=== PATIENT | female | born 1960 | race Caucasian/White ===

== ENCOUNTER → 2020-04-16 08:30 | Outpatient (BNVA) | payer BC, SELFPAY | PROVIDERS: PCP Internal Medicine Medical Oncology; Visit Provider Hospitalist ==

== ENCOUNTER 2020-10-20 17:13 | Outpatient (REF) | payer BC, SELFPAY ==
--- NOTE | ~2020-10-20 | XR_ITS ---
EXAMINATION: XR KNEE, RIGHT CLINICAL INFORMATION: Right knee pain COMPARISON: None TECHNIQUE: Four views of the right knee. FINDINGS: Bones and soft tissues are normal. No fracture or joint effusion. Alignment is anatomic. Joint spaces are well maintained. No abnormal soft tissue calcification. XR/XR knee RT 4V IMPRESSION: Unremarkable right knee exam
== END 2020-10-20 17:14 | disposition home or self-care (01) ==
LOC: HO.XRAY 17:13
PROVIDERS: PCP Internal Medicine Medical Oncology; Visit Provider Internal Medicine Medical Oncology
DX: M25.561 Pain in right knee (principal)
CPT/HCPCS: 73564

== ENCOUNTER → 2020-11-18 10:31 | Outpatient (BNVA) | payer BC, SELFPAY | PROVIDERS: PCP Internal Medicine Medical Oncology; Visit Provider Hospitalist ==

== ENCOUNTER 2021-05-20 12:47 | Outpatient (REF) | payer BC, SELFPAY ==
--- NOTE | ~2021-05-20 | CT_ITS ---
EXAMINATION: CT CHEST SCREENING CLINICAL INFORMATION: Current smoker. 46 pack year history. COMPARISON: Previous chest CT September 2019 TECHNIQUE: Multidetector volumetric CT imaging of the chest is performed without contrast using low dose technique. Additional 2-D coronal and sagittal reformatted images and axial 3-D maximum intensity projection (MIP) images are generated on the CT workstation. This CT examination was performed using dose optimization techniques as appropriate, variously including the following: *Automated exposure control *Adjustment of mA and/or kV according to patient size (this includes techniques or standardized protocols for targeted exams where dose is matched to indication/reason for exam; i.e. extremities or head) *Use of iterative reconstruction technique DLP: 50 mGy-cm FINDINGS: LUNGS: There is evidence of emphysema. There is a new 5 mm heterogeneous partially ground-glass attenuation partially cystic nodule in the left upper lobe (axial image 123 series 5). There is a new small irregularly-shaped nodule or abnormal parenchymal density in the right upper lobe measuring 2 x 4 mm (axial image 144 series 5). There is a new 3 mm right upper lobe nodule (axial image 162 series 5). There is a new 3 mm left upper lobe nodule (axial image 185 series 5). There is a new heterogeneous nodule or abnormal parenchymal density in the right upper lobe partially cystic and partially ground-glass attenuation measuring 3 x 8 mm (axial image 223 series 5). There is scarring or chronic subsegmental atelectasis in the anterior segment of the left upper lobe adjacent to the interhemispheric fissure. Immediately adjacent to this is a new abnormal linear parenchymal density in the left upper lobe measuring approximately 2 x 6 mm (axial image 249 series 5). There is a new ground-glass attenuation 5 mm nodule in the left upper lobe (axial image 286 series 5). The remainder of the pulmonary nodules are stable. The largest measures 3 mm in the left lower lobe (axial image 404 series 5). There is scarring or subsegmental atelectasis in the posterior basal segment of the right lower lobe that is stable. MEDIASTINUM: There is atherosclerotic disease. The mediastinum is otherwise normal. PLEURA: There is no pleural effusion. No pleural mass or thickening. AXILLA: No lymphadenopathy. UPPER ABDOMEN: There is a 1.5 cm low-attenuation liver lesion in the lateral segment of the left lobe probably representing a cyst that is stable. There is fullness of the left adrenal gland that is stable. OSSEOUS STRUCTURES: There are degenerative changes of the spine and curvature to the left. CT/CT lung screening IMPRESSION: Emphysema. Numerous new heterogeneous bilateral upper lobe nodules. ASSESSMENT: Lung-RADS category 3: Probably Benign. RECOMMENDATION: Six-month low-dose chest CT followup recommended.
== END 2021-05-20 12:48 | disposition home or self-care (01) ==
LOC: HO.CT 12:47
PROVIDERS: PCP Internal Medicine Medical Oncology; Visit Provider Physician Assistant Medical
DX: Z12.2 Encounter for screening for malignant neoplasm of respiratory organs (principal); F17.210 Nicotine dependence, cigarettes, uncomplicated
CPT/HCPCS: 71271

== ENCOUNTER 2021-06-05 16:13 | Outpatient (REF) | payer BC, SELFPAY ==
--- NOTE | ~2021-06-05 | XR_ITS ---
EXAMINATION: XR SHOULDER, LEFT CLINICAL INFORMATION: Left shoulder pain. COMPARISON: None TECHNIQUE: AP external rotation, Grashey, scapular Y, and axillary views of the left shoulder. FINDINGS: The bones and soft tissues are normal. No fracture. Glenohumeral and acromioclavicular alignment is anatomic with normal joint space. No abnormal soft tissue calcifications. XR/XR shoulder LT min 2V IMPRESSION: Normal left shoulder.
== END 2021-06-05 16:14 | disposition home or self-care (01) ==
LOC: HO.XRAY 16:13
PROVIDERS: PCP Internal Medicine Medical Oncology; Visit Provider Internal Medicine Medical Oncology
DX: M25.512 Pain in left shoulder (principal)
CPT/HCPCS: 73030

== ENCOUNTER → 2021-07-07 10:22 | Outpatient (BNVA) | payer BC, SELFPAY | PROVIDERS: PCP Internal Medicine Medical Oncology; Visit Provider Hospitalist | DX: Z13.89 Encounter for screening for other disorder (principal) ==

== ENCOUNTER 2021-12-04 14:17 | Outpatient (REF) | payer BC, SELFPAY ==
--- NOTE | ~2021-12-04 | CT_ITS ---
EXAMINATION: CT CHEST SCREENING CLINICAL INFORMATION: Former smoker. Quit 1 year ago. 47 pack year history. COMPARISON: Previous chest CT most recent May 2021 TECHNIQUE: Multidetector volumetric CT imaging of the chest is performed without contrast using low dose technique. Additional 2D coronal and sagittal reformatted images and axial 3D maximum intensity projection (MIP) images are generated on the CT workstation. This CT examination was performed using dose optimization techniques as appropriate, variously including the following: *Automated exposure control *Adjustment of mA and/or kV according to patient size (this includes techniques or standardized protocols for targeted exams where dose is matched to indication/reason for exam; i.e. extremities or head) *Use of iterative reconstruction technique DLP: 49 mGy-cm FINDINGS: LUNGS: There is evidence of emphysema. There is a new 3 mm left lower lobe nodule axial image 394 series 8. This is probably related to bronchial soft tissue opacification. There is a new 1.1 cm right lower lobe nodule probably related to bronchial wall soft tissue opacification seen in the anterior basal segment of the right lower lobe for example axial image 320 series 6. Small pulmonary nodules are otherwise stable. Largest pulmonary nodule is a 5 mm heterogeneous left upper lobe nodule axial image 121 series 6. MEDIASTINUM: The mediastinum is normal. CORONARY ARTERY CALCIFICATION: Mild PLEURA: There is no pleural effusion. No pleural mass or thickening. AXILLA: No lymphadenopathy. UPPER ABDOMEN: Stable low-attenuation lesion in the lateral segment of the left lobe of the liver likely representing a cyst. OSSEOUS STRUCTURES: Unremarkable. CT/CT lung screen follow up IMPRESSION: Severe emphysema. New nodules in the bilateral lower lobes likely related to bronchial soft tissue opacification. Otherwise pulmonary nodules are stable. ASSESSMENT: Lung-RADS category 3: Probably benign. RECOMMENDATION: Six-month low-dose chest CT follow-up recommended
== END 2021-12-04 14:18 | disposition home or self-care (01) ==
LOC: HO.CT 14:17
PROVIDERS: PCP Internal Medicine Medical Oncology; Visit Provider Physician Assistant Medical
DX: Z12.2 Encounter for screening for malignant neoplasm of respiratory organs (principal); Z87.891 Personal history of nicotine dependence
CPT/HCPCS: 71250

== ENCOUNTER → 2021-12-18 10:51 | Outpatient (BNVA) | payer BC, SELFPAY | PROVIDERS: PCP Internal Medicine Medical Oncology; Visit Provider Surgery | DX: R91.8 Other nonspecific abnormal finding of lung field (principal); F17.210 Nicotine dependence, cigarettes, uncomplicated | CPT/HCPCS: 99202 ==

== ENCOUNTER 2022-03-11 15:21 | Outpatient (REF) | payer BC, SELFPAY ==
--- NOTE | ~2022-03-11 | CT_ITS ---
EXAMINATION: CT CHEST SCREENING CLINICAL INFORMATION: Abnormal lung findings. COMPARISON: CT chest 12/04/2021 TECHNIQUE: Multidetector volumetric CT imaging of the chest is performed without contrast using low dose technique. Additional 2D coronal and sagittal reformatted images and axial 3D maximum intensity projection (MIP) images are generated on the CT workstation. This CT examination was performed using dose optimization techniques as appropriate, variously including the following: *Automated exposure control *Adjustment of mA and/or kV according to patient size (this includes techniques or standardized protocols for targeted exams where dose is matched to indication/reason for exam; i.e. extremities or head) *Use of iterative reconstruction technique DLP: 48 mGy-cm FINDINGS: LUNGS: There is diffuse emphysematous changes of both lungs with mild right apical parenchymal scarring. There are multiple bilateral pulmonary nodules. 2 mm nodule right upper lobe axial image 119/6, 2 mm nodule left upper lobe axial image 187/6, 3 mm nodule left upper lobe axial image 207/6. Previously seen intrabronchiolar nodule on axial image 320/6 has improved in size and now measures 4 mm on axial image 333/6. A 5 matter nodule left upper lobe on axial image 126/6 is stable. There are no new pulmonary nodules seen. MEDIASTINUM: The thyroid lobes are symmetrical and normal. The central trachea and the bronchi are widely patent. The heart size and great vessels are normal caliber. No abnormal size mediastinal or hilar lymph nodes seen. No pericardial effusion seen. CORONARY ARTERY CALCIFICATION: None visualized on this study. PLEURA: There is no pleural effusion. No pleural mass or thickening. AXILLA: Small shotty lymph nodes are seen in bilateral axilla. UPPER ABDOMEN: There is a hypodense lesion, left hepatic lobe, image 56/3. Probably represents a cyst. It is unchanged from last exam. No additional lesions seen. Visualized spleen, pancreas and adrenal glands are unremarkable. OSSEOUS STRUCTURES: No aggressive lytic or sclerotic process seen. CT/CT lung screen follow up IMPRESSION: 1. Diffuse emphysema with no acute pneumonic process seen. The intrabronchial nodule in right lower lobe seen on the previous study has improved in size. 2. There are multiple bilateral pulmonary nodules which are stable. No new pulmonary nodules seen. ASSESSMENT: Lung-RADS category 2: Benign RECOMMENDATION: Low-dose annual CT chest
== END 2022-03-11 15:22 | disposition home or self-care (01) ==
LOC: HO.CT 15:21
PROVIDERS: Visit Provider Surgery
DX: R91.8 Other nonspecific abnormal finding of lung field (principal)
CPT/HCPCS: 71250

== ENCOUNTER → 2022-03-23 08:46 | Outpatient (BNVA) | payer BC, SELFPAY | PROVIDERS: PCP Internal Medicine Medical Oncology; Visit Provider Hospitalist | DX: J44.9 Chronic obstructive pulmonary disease, unspecified (principal) ==

== ENCOUNTER → 2022-03-26 10:57 | Outpatient (BNVA) | payer BC, SELFPAY | PROVIDERS: PCP Internal Medicine Medical Oncology; Visit Provider Surgery | DX: R91.8 Other nonspecific abnormal finding of lung field (principal); F17.200 Nicotine dependence, unspecified, uncomplicated; Z71.6 Tobacco abuse counseling | CPT/HCPCS: 99212 ==

== ENCOUNTER 2022-10-27 08:54 | Outpatient (REF) | payer BC, SELFPAY ==
--- NOTE | ~2022-10-27 | CT_ITS ---
EXAMINATION: CT LUNG SCREENING FOLLOW-UP CLINICAL INFORMATION: Pulmonary nodules. Other nonspecific abnormal finding of lung field. COMPARISON: Low dose chest CT exams, including 10/01/2019 and 03/11/2022. TECHNIQUE: Multidetector volumetric noncontrast CT imaging of the chest was obtained using low dose screening CT technique. Axial thin section reformations in soft tissue and lung windows were obtained. Sagittal and coronal reformatted images were obtained. Axial images were created and reviewed. This CT examination was performed using dose optimization techniques as appropriate, variously including the following: *Automated exposure control *Adjustment of mA and/or kV according to patient size (this includes techniques or standardized protocols for targeted exams where dose is matched to indication/reason for exam; i.e. extremities or head) *Use of iterative reconstruction technique TOTAL EXAM DLP: 45 mGy-cm. CTDIvol: 1.28 mGy. FINDINGS: LUNGS: [id number]-[id number] pulmonary emphysema. Bronchial higgins are diffusely thickened. Again noted are a few nodular opacities, including 0.3 cm noncalcified foci in the anterolateral right upper lobe (159, series 5), anteromedial left upper lobe (240, series 5) and lateral left upper lobe (168, series 5). A few small foci of residual endobronchial mucus are present within the right lower lobe. A small irregular subsolid opacity in the left upper lobe of approximately 0.5 cm size is unchanged (104, series 5). No enlarging lung nodule. No new nodule, mass or pleural effusion. LYMPHATIC STRUCTURES: No pathologic sized mediastinal, hilar or axillary lymph nodes. THYROID GLAND: Unremarkable to the extent seen. CARDIOVASCULAR STRUCTURES: The heart size is normal. No pericardial effusion. Thoracic aorta atherosclerosis without aneurysm. Pulmonary arteries are normal in size. CORONARY ARTERY CALCIFICATION: Mild calcification of the proximal left anterior descending coronary artery is present. MEDIASTINUM: The esophagus is unremarkable. No mediastinal mass. UPPER ABDOMEN: 2.1 cm cyst in the left lobe of the liver has a simple appearance. OSSEOUS STRUCTURES: Bones are diffusely osteopenic. Mild spondylosis of the thoracic spine. No acute or suspicious osseous abnormality. CT/CT lung screen follow up IMPRESSION: * Pulmonary emphysema has an upper lobe predominance and bronchial higgins are chronically mildly thickened. * No interval development of a suspicious nodule, mass or lymphadenopathy. Lung-RADS CATEGORY Lung RADS category: 2. Benign appearance or behavior. Nodules with a very low likelihood of becoming a clinically active cancer due to size or lack of growth. Continue annual screening with low-dose CT in 12 months. Probability of malignancy less than 1%. INCIDENTAL FINDINGS (S CATEGORY): No new or unexpected/actionable findings in this category. RECOMMENDATION: If the patient remains in a screening program, obtain low dose chest CT follow up in 12 months. The USPSTF recommends annual screening for lung cancer using low-dose CT in adults aged 50 - 80 years who have at least a 20 pack-year smoking history and currently smoke or have quit smoking within the past 15 years.
== END 2022-10-27 08:55 | disposition home or self-care (01) ==
LOC: HO.CT 08:54
PROVIDERS: PCP Internal Medicine Medical Oncology; Visit Provider Surgery
DX: R91.8 Other nonspecific abnormal finding of lung field (principal)
CPT/HCPCS: 71250

== ENCOUNTER 2022-11-05 09:30 | Outpatient (AMB) | payer BC, SELFPAY ==
--- NOTE | 2022-11-05 09:33 | MHC.OFFVIS ---
Intake Vital Signs 11/05/22 09:42 Height 5 ft 4 in Weight 173 lb BMI 29.7 BP 110/70 Blood Pressure Location Lt brachial Position Sitting Pulse 78 Pulse Oximetry (%) 93 Intake Visit Reasons: 6 month follow up LDCT Allergies meperidine [From DEMEROL] Adverse Reaction (Intermediate, Verified 03/26/22 11:27) NAUSEA & VOMITING Demerol Allergy (Unknown, Uncoded 03/26/22 11:27) vomiting Medication List - Last Reconciled 11/05/22 by Rhys Alarcon MD albuterol sulfate 90 mcg/actuation 2 puffs inhalation Q4H PRN 30 days bupropion HCl 150 mg (2 x 75 mg) PO BID 30 days flu vac [id number] 36mos up(PF) mL IM ivbjlvhmttb-xawvkyqrn-gusqyypt 200-62.5-25 mcg (Trelegy Ellipta) 1 inh inhalation DAILY 30 days ipratropium-albuterol 0.5 mg-3 mg(2.5 mg base)/3 mL 3 mL inhalation QID 30 days nebulizers As directed varenicline (Chantix Starting Month Box) PO PER PKG DIR HPI 6 month follow up LDCT HPI Details 62-year-old woman long-time and current smoker who started age 14 smoked half pack per day since then part of the lung cancer screening program who had her 1st low-dose CT scan of the chest done in May of 2021 at which time she was a lung rads 3 and had a six-month follow-up CT scan done on 12/04/2021.? This CT scan actually shows the stability of the small nodule previously mentioned but a new 1.1 cm ground-glass right lower lobe basilar nodule associated with some airway thickening.? This certainly has a more inflammatory appearance to it.? There is no mediastinal lymphadenopathy and no pleural fluid.? Repeat CT scan of the chest also reviewed interpreted by me directly done on 03/11/2022 shows decrease in the right lower lobe endobronchial nodule and otherwise stability throughout. Finally repeat CT scan of the chest done on 10/27/2022 shows no new nodules, growing nodules, lymphadenopathy or pleural fluid. She reports feeling generally in good health denies unintentional weight loss decreased appetite fevers chills or soaking sweats.? She denies chest pain, shortness of breath, cough, or hemoptysis.? She denies any new neurologic symptoms.? She is still smoking and we spent 9 minutes discussing smoking cessation and she is currently going to try the patch but we also discussed using the gum or lozenges and weaning herself off of cigarettes more slowly. ? ?She did try Chantix in the interim since last last saw her but that did not agree with her. Today all teletypewriter installer for the patch and she tells me that her and her quit date is tomorrow. [facility] Medical History COPD (chronic obstructive pulmonary disease) Nicotine dependence, cigarettes, uncomplicated Pulmonary nodules Social History Patient Tobacco Use Status: Current everyday Tobacco user Cigarette Packs Per Day: 1 Cigarettes Per Day: 1 Years Smoked: 45 years Physical Exam Vital Signs: Last Vital Signs Pulse 78 11/05/22 09:42 BP 110/70 11/05/22 09:42 Pulse Ox 93 11/05/22 09:42 BMI result Body Mass Index 29.7 General: No acute distress HEENT: Moist mucous membranes, normocephalic, pupils equal round and reactive to light. Neck: No thyromegaly, supple, no JVD Lymph: No cervical, supraclavicular, or other lymphadenopathy Chest: No chest wall abnormalities or deformities Heart: Regular rate and rhythm Lungs: Clear to auscultation bilaterally Abdomen: Soft, nontender, normal bowel sounds Extremities: No edema, cyanosis, or clubbing. Full range of motion Neuro: Grossly intact, alert and oriented x3, and nonfocal Skin: Warm and dry no rashes Affect: Normal Assessment & Plan Assessment & Plan (1) Pulmonary nodules: Code(s): R91.8 - Other nonspecific abnormal finding of lung field Plan: I went over the CT scan with her in detail which he seemed understand. We also again discussed pulmonary nodules and how their size, shape, and exchange specialist time affect her level of suspicion for malignancy. I did not see any worrisome nodules currently. With that in mind, will plan on doing an annual screening CT and she will need a visit with me after that unless there are some new changes. All questions were answered. (2) Nicotine dependence, cigarettes, uncomplicated: Comment: (current smoker - onset 14yo, 1/2ppd x 48yrs - 24PYH) Code(s): F17.210 - Nicotine dependence, cigarettes, uncomplicated Plan: Up prescribing the patch and smoking cessation 9 minutes as above. Orders: Orders CT lung screening 11 Months F17.210 - Nicotine dependence, cigarettes, uncomplicated Medications: New nicotine 1 patch transdermal DAILY 28 ea 0RF F17.210 - Nicotine dependence, cigarettes, uncomplicated Quality Reporting (2019) Adult ([facility] 138/05/05/68) Smoking risk assessment performed?: Yes Patient Tobacco Use Status: Current everyday Tobacco user Coding Level of Care Code Est Pt Level 4 (79411) Diagnoses Pulmonary nodules R91.8 Nicotine dependence, cigarettes, uncomplicated F17.210 Time Spent (min) 35 Comment Smoking cessation 9 minutes please bill
[2022-11-05 09:42] VITALS: BP 110/70; PULSE 78; O2SAT 93; BMI 29.7
== END 2022-11-05 09:51 | disposition home or self-care (01) ==
PROVIDERS: PCP Internal Medicine Medical Oncology; Visit Provider Surgery
DX: R91.8 Other nonspecific abnormal finding of lung field (principal); F17.210 Nicotine dependence, cigarettes, uncomplicated

== ENCOUNTER → 2022-11-05 09:30 | Outpatient (BNVA) | payer BC, SELFPAY | PROVIDERS: PCP Internal Medicine Medical Oncology; Visit Provider Surgery | DX: R91.8 Other nonspecific abnormal finding of lung field (principal); F17.210 Nicotine dependence, cigarettes, uncomplicated | CPT/HCPCS: 99212 ==

== ENCOUNTER 2022-11-27 08:13 | Outpatient (REF) | payer BC, SELFPAY | END 2022-11-27 08:14 | disposition home or self-care (01) | LOC: HO.MAMMO 08:13 | PROVIDERS: PCP Internal Medicine Medical Oncology; Visit Provider Internal Medicine Medical Oncology | DX: Z12.31 Encounter for screening mammogram for malignant neoplasm of breast (principal) | CPT/HCPCS: 77063; 77067 ==

== ENCOUNTER → 2022-11-27 08:30 | Outpatient (BNV) | payer BC, SELFPAY | PROVIDERS: PCP Internal Medicine Medical Oncology; Visit Provider Radiology Diagnostic Radiology | DX: Z12.31 Encounter for screening mammogram for malignant neoplasm of breast (principal) | CPT/HCPCS: 77063; 77067 ==

== ENCOUNTER 2022-11-29 08:20 | Outpatient (AMB) | payer BC, SELFPAY ==
[2022-11-29 08:25] VITALS: BP 91/64; PULSE 85; BMI 27.6
--- NOTE | 2022-11-29 08:25 | A.OFFVIS_ITS ---
Intake Vital Signs 11/29/22 08:25 Height 5 ft 4 in Weight 160 lb 14.999 oz BMI 27.6 BP 91/64 Blood Pressure Location Lt brachial Position Sitting Pulse 85 Intake Visit Reasons: screening colo Intake Note: Mendy presents in office as a new.patient for a colonoscopy screening PT CC: pt reports having no concerns , 1st colo pt denies any other GI Issues Registered Midwife Required: No Accompanied by: Spouse Allergies meperidine [From DEMEROL] Adverse Reaction (Intermediate, Verified 11/29/22 08:26) NAUSEA & VOMITING Demerol Allergy (Unknown, Uncoded 11/29/22 08:26) vomiting HPI screening colo HPI Details 62 year old? female here today for pre c olonoscopy screening.? Patient was sent to us by her PCP.? This is her first colonoscopy screening.? Patient denies any gastrointestinal symptoms in the past or at present.? Denies any personal or family history of gastrointestinal disease, colon polyps, or cancer.? Denies history of difficulty with sedation or anesthesia in the past.? Negative for history of sleep apnea.? Denies any history of cardiac, renal or hepatic disease.?? Occasional shortness of breath, history of COPD patient will need a clearance from her jack tamp operator. No history of infectious? diseases like hepatitis A, B, C, HIV or tuberculosis.? Patient is not on any anticoagulation therapy. [facility] Medical History Nicotine dependence, cigarettes, uncomplicated Pulmonary nodules COPD (chronic obstructive pulmonary disease) Social History Patient Tobacco Use Status: Current everyday Tobacco user Cigarette Packs Per Day: 1 Cigarettes Per Day: 1 Years Smoked: 45 years Review of Systems Const Denies weight gain and Denies weight loss ENT Reports no additional complaints, Denies dysphagia and Denies odynophagia Card Reports no additional complaints Resp Reports no additional complaints GI Denies abdominal pain, Denies belching, Denies melena, Denies bloating, Denies change in bowel habits, Denies dysphagia, Denies excessive flatus, Denies dyspepsia, Denies heartburn, Denies diarrhea, Denies loose stools, Denies nausea, Denies odynophagia and Denies vomiting Musc Reports no additional complaints Neuro Reports no additional complaints Psych Reports no additional complaints Endo Reports no additional complaints Physical Exam Vital Signs: Last Vital Signs Pulse 85 11/29/22 08:25 BP 91/64 11/29/22 08:25 BMI result Body Mass Index 27.6 Const General: healthy appearing, no acute distress and well developed Nutritional Appearance: well nourished Orientation/consciousness: patient oriented x3 HEENT Head: Yes normal to inspection, Yes normocephalic and Yes atraumatic Face and sinus: Yes normal facial exam Mouth: Normal oral and palatal mucosa present Throat: Yes posterior oropharynx normal, Yes tonsils normal and Yes uvula midline Eyes General: appearance normal, both eyes and all related structures Neck Neck: Yes normal visual inspection, Yes full ROM and Yes trachea midline Thyroid: Thyroid normal Resp Effort & Inspection: normal respiratory effort, able to speak in complete sentences, no tracheal deviation and symmetric chest movement Auscultation: clear to auscultation bilaterally Cardio Rate: regular rate Heart sounds: S1 normal heart sound present and S2 normal heart sound present GI Inspection: Yes normal to inspection and No distended Palpation (GI): Soft to palpation, not firm, nontender and No hepatosplenomegaly present Auscultation: normal bowel sounds General: Yes no CVA tenderness Back/Spine/Pelvis Back: no CVA tenderness Skin General skin exam: elasticity normal, turgor normal and dry skin Neuro General: patient oriented x3 Psych Appearance: grossly normal Mental Status: mental status grossly normal Speech and movement: Normal speech and movement present Assessment & Plan Assessment & Plan (1) Screen for colon cancer: Code(s): Z12.11 - Encounter for screening for malignant neoplasm of colon Plan: Patient denies any GI, cardiac symptoms.? Patient does have a history of COPD see pulmonology will ask for clearance before the procedure. Denies any issues with anesthesia in the past.? Denies any history of sleep apnea.? No history infectious diseases in the past or present.? Not on any anticoagulation therapy.? No family or personal history of colon cancer or polyps.? Patient denies melena, hematochezia, unintentional weight loss or ribbon like stools.? Discussed at length the pre-procedure,? prep, diet & medications as well as what to expect prior, during and after the procedure.?? Stressed the importance of good bowel prep. ?Recommended the use of Vaseline or Calmoseptine OTC & baby wipes with bowel movements to promote comfort.? ?Patient verbalizes understanding and agrees to plan of care.? She was given the opportunity to ask questions and all questions answered.? We will see her after the procedure.? Medications: New bisacodyl (Dulcolax (bisacodyl)) take 2 tabs at noon the day before your colonoscopy 10 mg (2 x 5 mg) PO ONCE 1 day 2 tabs 0RF Z12.11 - Encounter for screening for malignant neoplasm of colon polyethylene glycol 3350 (Miralax) As directed by gastroenterology department at [facility] 238 grams PO ONCE 238 grams 0RF Z12.11 - Encounter for screening for malignant neoplasm of colon Quality Reporting (2019) Adult ([facility] 138/05/05/68) Smoking risk assessment performed?: Yes Patient Tobacco Use Status: Current everyday Tobacco user Coding Level of Care Code New Pt Level 3 (38944) Diagnoses Screen for colon cancer Z12.11 Time Spent (min) 40 Comment 30 minutes spent with patient and additional 10 minutes spent reviewing her records
== END 2022-11-29 09:43 | disposition home or self-care (01) ==
PROVIDERS: PCP Internal Medicine Medical Oncology; Visit Provider Nurse Practitioner Family
DX: Z12.11 Encounter for screening for malignant neoplasm of colon (principal); Z01.818 Encounter for other preprocedural examination
CPT/HCPCS: S0285

== ENCOUNTER → 2022-11-29 08:20 | Outpatient (BNVA) | payer BC, SELFPAY | PROVIDERS: PCP Internal Medicine Medical Oncology; Visit Provider Nurse Practitioner Family ==

== ENCOUNTER 2022-12-21 08:22 | Outpatient (AMB) | payer BC, SELFPAY ==
--- NOTE | 2022-12-21 08:40 | MHC.OFFVIS ---
Intake Vital Signs 12/21/22 08:42 Height 5 ft 4 in Weight 160 lb 14.999 oz BMI 27.6 BP 118/70 Blood Pressure Location Rt brachial Position Sitting Pulse 83 Pulse Source Pulse Oximeter Pulse Oximetry (%) 93 Oxygen Delivery Method Room Air Intake Visit Reasons: COPD Public Message Service Supervisor Required: No Allergies meperidine [From DEMEROL] Adverse Reaction (Intermediate, Verified 12/21/22 08:45) NAUSEA & VOMITING Demerol Allergy (Unknown, Uncoded 12/21/22 08:45) vomiting HPI HPI Comments History of Present Illness Details The patient is a 62-year-old woman known COPD in addition to tobacco dependency. He was evaluated last year by Pulmonary and she had been placed on the lung cancer screening program. There she had a CT scan of the chest back at [facility] in September 29, 2018 demonstrating multiple pulmonary nodules 1 measuring 5 mm in size and spiculated in nature. In addition to that she had extensive emphysema. She continues to smoke cigarettes unfortunately 1 pack a day. She continues use her inhalers with partial improving her symptoms. She does complaint of dyspnea on exertion even with minimal activity. Denies any significant mucus production. Denies any significant congestion. She states that has been smoking and also her others children smoke. We talked about the importance of smoking cessation. She is motivating wants to quit. I did provide her with a letter to provide her family. She is trying to cut down on her smoking with the nicotine patch Wellbutrin. She is down to 2 cigarettes a day which is very good for her. She is going to strive to quit completely. In the meantime she did have her low-dose CT scan with stable pulmonary nodules and moderate degree of emphysema. She also had PFTs demonstrating severe COPD and severe diffusion impairment. The patient is trying to stay active. 07/07/2021 the patient is here for a pulmonary follow-up visit. Still having hard time with her breathing. She has been using Trelegy 100. unfortunately after she developed COVID back in the beginning of the year her breathing has not been the same. She did have significant coughing and chest tightness during the COVID infection and also afterwards. Therefore, she did have an old nebulizer she has been using it regularly. Sometimes up to twice a day. She does get a good amount of relief from the therapy. She did have a recent CT scan of the chest to the lung cancer screening program which we personally reviewed. It appears that she has pulmonary nodules and some new ones. Also has some ground-glass nodular changes. Unfortunately this CT scan was done after the fact that she developed COVID. Some of the changes specially at the bases may be due to the residual COVID infection. I am hopeful that in 6 months those changes have improved. In the meantime she does continue smoking. She has extensive emphysema and significant bronchiectatic airways and bronchitis. Explained to the patient that her situation is pretty advanced and she needs to quit smoking before gets worse. Ultimately she may end of oxygen. The patient will talk to her to see if they can come up with a quit date in the meantime she does have nicotine patches at home. Will go ahead and try to maximize her respiratory therapy by increasing her Trelegy to 200 the patient will also start a low-dose prednisone taper. She may also be a good candidate for Daliresp. Will continue to assess her progress. 09/16/2021 the patient is here for a pulmonary follow-up visit. Overall she is feeling better. She responded well to the Trelegy. Six months ago she did require prednisone reconsider Daliresp. But at this point she is doing better. She had a hard time with regular albuterol she did better with DuoNeb. I will send a prescription to the pharmacy. The patient did have a CT scan of the chest to the lung cancer screening program. Appears to have multiple nodular densities some subsolid nature. She is scheduled to have a CT scan again in the fall 2021. At this moment she is still working on the smoking. She is tolerating the Wellbutrin and she has a 14 mg nicotine patch. She is cutting down significantly. She still having hard time however. I did advise her to increase exercise activity at this time. Will hold off on Daliresp right now although she starts noticing increased congestion and difficulty breathing may be a good option. The patient also will increase her daily exercise. 03/23/2022 the patient is here for a pulmonary follow-up visit. Overall the patient is doing well. She continues use the Trelegy inhaler with good effect. Still having a cough which is congested in nature. Typical of her smoker's cough. Cxsy-mz-zstaxgjb severity. Also complains of shortness of breath with activity. Mild in severity. She did have a recent CT scan of the chest which is reassuring. She is going to continue with the lung cancer screening program at this time. In addition to that she needs to quit smoking. She tried Wellbutrin and also that nicotine patch without any improvement with her tobacco cessation. Therefore, I will have her we would try her Chantix. In the past she did try and have GI symptoms. This time she is going to start the Chantix but be smoking less to minimize on the adverse effects of the smoking related negative feedback. 12/21/2022 the patient is here for a pulmonary follow-up visit. She is complaining of productive cough. Moderate severity. Trelegy is been helping. She has also been taking Mucinex twice a day. The patient finds helpful. Her mucus is pale in color. The patient is wondering if there is any other medication she can take. She did have a CT scan of the chest in October 2022 demonstrating stable pulmonary nodules. She is now rads 2. She should get a CT scan now in a year's time. In addition to that the patient is looking to quit smoking. She is not completely ready. I did give her a prescription for Chantix the last visit but she has not started as of yet. I did encourage her to start even if she is not ready at this time. The patient will try some ice in 4 months. If the patient feels better she can stop it. Otherwise she can also consider going on Daliresp or longer bout of azithromycin if it was effective. 12/21/2022 the patient is here for a pulmonary follow-up visit. Overall the patient is doing well. She still complaining of productive cough. She has been on the Trelegy inhaler that is been affected. Will try her on macrolide therapy for a month and see if she benefits. Otherwise she will be a good candidate for Daliresp. The patient is aware that he does have GI side effects. Unfortunately she is still smoking. She has not started the Chantix as of yet. She is waiting for her to be completely ready. Explained to her that with Chantix she does have to wait to be completely ready to quit and she can not smoke while on Chantix with the hope that she starts disliking in having a negative feedback effect from the smoking while in Chantix. She is going to consider starting at this time. She is also participating in the lung cancer screening program. Last CT scan October 2022 was still reassuring. Therefore she will get a repeat CT scan in a year's time. Will follow-up in 6 months. [facility] Medical History Nicotine dependence, cigarettes, uncomplicated Pulmonary nodules COPD (chronic obstructive pulmonary disease) Social History Patient Tobacco Use Status: Current everyday Tobacco user Cigarette Packs Per Day: 1 Cigarettes Per Day: 1 Years Smoked: 45 years Review of Systems Const Denies fever(s) and Denies night sweats ENT Denies change in voice, Denies lip swelling, Denies mouth pain, Denies nasal congestion, Denies nasal discharge and Denies tongue swelling Card Denies chest pain and Reports dyspnea on exertion Resp Reports chest congestion, Reports cough, Reports dyspnea on exertion and Reports wheezing GI Denies abdominal pain Musc Denies no additional complaints Skin/Breast Denies rash Neuro Denies Neuro-related abnormal movements Psych Denies no additional complaints Khadar/Lymph Denies easy bleeding and Denies lymphadenopathy Aller/Immun Denies lip swelling, Denies tongue swelling and Reports wheezing Physical Exam Vital Signs: Last Vital Signs Pulse 83 12/21/22 08:42 BP 118/70 12/21/22 08:42 Pulse Ox 93 12/21/22 08:42 Oxygen Delivery Method Room Air 12/21/22 08:42 BMI result Body Mass Index 27.6 Const General: alert HEENT General nose exam: Abnormal external nose present and Nasal discharge present Eyes Pupils: Equal, round and reactive pupils present Neck Neck: Yes normal visual inspection, Yes full ROM and Yes no lymphadenopathy Chest Chest palpation & inspection: normal inspection of the chest Resp Auscultation: no wheezes and diminished lung sounds Cardio Rate: regular rate Rhythm: regular rhythm Heart sounds: S1 normal heart sound present and S2 normal heart sound present GI Palpation (GI): Soft to palpation and nontender Auscultation: normal bowel sounds General: Yes no CVA tenderness Back/Spine/Pelvis Back: no CVA tenderness Skin General skin exam: rashes and/or lesions noted Neuro Cranial nerves: Yes Equal, round and reactive pupils present Assessment & Plan Assessment & Plan (1) COPD (chronic obstructive pulmonary disease): Code(s): J44.9 - Chronic obstructive pulmonary disease, unspecified Qualifiers: COPD type: chronic bronchitis Chronic bronchitis type: simple Qualified Code(s): J41.0 - Simple chronic bronchitis (2) Pulmonary nodules: Code(s): R91.8 - Other nonspecific abnormal finding of lung field (3) Tobacco dependence: Comment: (current smoker, 1ppd) Code(s): F17.200 - Nicotine dependence, unspecified, uncomplicated Plan continue Trelegy 200 Nebulizer twice a day, sent Duoneb stopped Nicotene patch/weelbutrin consider starting chantix CT chest LDCT, RADS 2 start Azithromycin MWF x 1 month consider Daliresp F/U 6 months Medications: New azithromycin Take 1 tablet on Tuesday/Tuesday/Tuesday 250 mg PO 3XW 28 days 12 tabs 0RF K21.9 - Gastro-esophageal reflux disease without esophagitis Discontinued bupropion HCl Discontinued Reason: Doctor's Order 150 mg (2 x 75 mg) PO BID 30 days 120 tabs 11RF Quality Reporting (2019) Adult ([facility] 138/05/05/68) Smoking risk assessment performed?: Yes Patient Tobacco Use Status: Current everyday Tobacco user Coding Level of Care Code Est Pt Level 4 (70322) Diagnoses Simple chronic bronchitis J41.0 COPD type: chronic bronchitis Chronic bronchitis type: simple Pulmonary nodules R91.8 Tobacco dependence F17.200 Time Spent (min) 16
[2022-12-21 08:42] VITALS: BP 118/70; PULSE 83; O2SAT 93; BMI 27.6
== END 2022-12-21 09:09 | disposition home or self-care (01) ==
PROVIDERS: PCP Internal Medicine Medical Oncology; Visit Provider Hospitalist
DX: J41.0 Simple chronic bronchitis (principal); R91.8 Other nonspecific abnormal finding of lung field; F17.200 Nicotine dependence, unspecified, uncomplicated
CPT/HCPCS: 99214

== ENCOUNTER → 2022-12-21 08:22 | Outpatient (BNVA) | payer BC, SELFPAY | PROVIDERS: PCP Internal Medicine Medical Oncology; Visit Provider Hospitalist ==

== ENCOUNTER 2023-03-16 14:19 | Outpatient (REF) | payer BC, SELFPAY ==
--- NOTE | ~2023-03-16 | XR_ITS ---
EXAMINATION: XR CHEST CLINICAL INFORMATION: Cough. COMPARISON: CT chest of 10/27/2022. Chest radiographs of 04/18/2019. TECHNIQUE: 2 views of the chest were obtained. FINDINGS: Lungs are hyperinflated with pjvwnelz-hd-hqirnm emphysematous changes. Heart size is normal. Bilateral peribronchial thickening redemonstrated. Mild degenerative changes in the thoracic spine. Nodular density overlying the lower lateral right lung likely represents a nipple shadow and this could be confirmed by repeat views after placement of nipple markers. XR/XR chest 2V IMPRESSION: Dykrhskm-yr-znsyen emphysematous changes redemonstrated. Nodular density overlying the lower lateral right lung likely represents a nipple shadow and this could be confirmed by repeat views after placement of nipple markers.
== END 2023-03-16 14:20 | disposition home or self-care (01) ==
LOC: HO.XRAY 14:19
PROVIDERS: PCP Internal Medicine Medical Oncology; Visit Provider Nurse Practitioner Family
DX: J41.0 Simple chronic bronchitis (principal); R91.8 Other nonspecific abnormal finding of lung field; F17.200 Nicotine dependence, unspecified, uncomplicated; Z71.6 Tobacco abuse counseling
CPT/HCPCS: 71046; 94640

== ENCOUNTER 2023-03-16 14:19 | Outpatient (AMB) | payer BC, SELFPAY ==
--- NOTE | 2023-03-16 14:23 | MHC.OFFVIS ---
Intake Vital Signs 03/16/23 14:24 Height 5 ft 4 in Weight 158 lb BMI 27.1 BP 108/68 Blood Pressure Location Rt brachial Position Sitting Pulse 105 H Pulse Source Pulse Oximeter Pulse Oximetry (%) 94 Oxygen Delivery Method Room Air Intake Visit Reasons: Cough/Phlegm x 3weeks Community Arts Officer Required: No Antique Dealer: Antique Dealer offered & declined Accompanied by: Self / Same As Patient Allergies meperidine [From DEMEROL] Adverse Reaction (Intermediate, Verified 03/16/23 14:28) NAUSEA & VOMITING Demerol Allergy (Unknown, Uncoded 03/16/23 14:28) vomiting Medication List - Last Reconciled 03/16/23 by Lucille Montiel LPN albuterol sulfate 90 mcg/actuation 2 puffs inhalation Q4H PRN 30 days flu vac [id number] 36mos up(PF) mL IM onnylmhxmxr-lszzqnqoj-uvlbbnfz 200-62.5-25 mcg (Trelegy Ellipta) 1 inh inhalation DAILY 30 days ipratropium-albuterol 0.5 mg-3 mg(2.5 mg base)/3 mL 3 mL inhalation QID 30 days nebulizers As directed nicotine 1 patch transdermal DAILY HPI Cough/Phlegm x 3weeks HPI Details Mendy is a pleasant 62 year old female, current 1ppd smoker with a 45 pack year history, followed for COPD and pulmonary nodules. At baseline she is moderately controlled on Trelegy, albuterol MDI and duoneb. Today she presents for an acute visit. She reports a three week history of productive cough, dyspnea, wheezing and chest congestion. Her PCP presribed a zpak and prednisone with minimal improvements. She does report her sputum is now yellow in color, improved from green but continues with persistent cough and dyspnea with minimal exertion. She denies fever, chills or sick contacts. [facility] Medical History Nicotine dependence, cigarettes, uncomplicated Pulmonary nodules COPD (chronic obstructive pulmonary disease) Social History (Updated 03/16/23 @ 14:30 by Lucille Montiel LPN) Patient Tobacco Use Status: Current everyday Tobacco user Cigarette Packs Per Day: 1 Cigarettes Per Day: 1 Years Smoked: 45 years Smoked in Last 30 Days: Yes Review of Systems Const Denies chills, Denies excessive sweating, Denies fever(s), Denies headache(s) and Denies night sweats Eyes Denies dry eyes, Denies irritation and Denies itchy eyes ENT Reports Normal hearing present, Denies headache(s), Denies nasal congestion, Denies nasal discharge, Denies post nasal drip and Denies sore throat Card Denies chest pain, Denies chest pain at rest, Denies chest pain with activity, Denies claudication, Denies leg edema, Denies orthopnea and Denies paroxysmal nocturnal dyspnea Resp Denies excessive phlegm production, Denies pain on inspiration, Denies pain with cough and Denies stridor Musc Denies myalgias Neuro Reports Normal hearing present and Denies headache(s) Endo Denies excessive sweating Khadar/Lymph Denies lymphadenopathy Aller/Immun Denies itchy eyes and Denies seasonal rhinorrhea Physical Exam Vital Signs: Last Vital Signs Pulse 105 H 03/16/23 14:24 BP 108/68 03/16/23 14:24 Pulse Ox 94 03/16/23 14:24 Oxygen Delivery Method Room Air 03/16/23 14:24 BMI result Body Mass Index 27.1 Const General: cooperative, healthy appearing, comfortable, no acute distress, well developed and alert Orientation/consciousness: patient oriented x3 Limitations: no limitations HEENT Head: Yes normal to inspection, Yes normocephalic and Yes atraumatic Ears: hearing grossly normal bilaterally and external ears normal Eyes General: appearance normal, both eyes and all related structures Eyelids: Yes eyelids normal Sclerae: sclerae normal EOM: EOMs intact bilaterally Neck Neck: Yes normal visual inspection and Yes no lymphadenopathy Lymphatic: no lymphadenopathy noted Chest Chest palpation & inspection: normal inspection of the chest Resp Other: faint expiratory wheezing throughout with diminished lung sounds and crackles bilateral bases, mildly improved with duoneb Effort & Inspection: normal respiratory effort, no audible wheezes, no stridor, not tachypneic, no tripod positioning and no use of accessory muscles Cardio Jugular venous distension: no JVD Rate: regular rate Rhythm: regular rhythm Skin Other: warm, dry General skin exam: no rashes or lesions noted Neuro General: patient oriented x3 Cranial nerves: Yes Normal hearing present Cognition (Neuro): normal cognition Gait exam (Neuro): Normal gait present Extrem General: Yes normal to inspection, Yes capillary refill normal, Yes no clubbing, cyanosis or edema and Yes no pedal edema Psych Appearance: grossly normal and well kempt Speech and movement: Normal speech and movement present and Clear speech present Affect: normal affect Attitude: cooperative Thought process: Normal thought process present Thought content: Normal thought content present Insight: Good insight present (Psych) Judgement: Good judgement present (Psych) Office Procedures Nebulizer Treatment Nebulizer Treatment [id number] RX initial, or Nebulizer Subsequent Treatment Office Meds ipratropium 0.5 mg-albuterol 3 mg (2.5 mg base)/3 mL nebulization soln Performing Provider: Felecia Stanton NP [place] [facility] [place] [facility] Administered by: Lucille Montiel LPN on 03/16/23 14:49 Dose Route Admin Location Dispensed Lot Number Expiration Date [facility] Admissions Counselor 3 mL inhalation 3 mL [id number] 12/11/24 [id number] [employer] Assessment & Plan Assessment & Plan (1) COPD (chronic obstructive pulmonary disease): Code(s): J44.9 - Chronic obstructive pulmonary disease, unspecified Qualifiers: COPD type: chronic bronchitis Chronic bronchitis type: simple Qualified Code(s): J41.0 - Simple chronic bronchitis (2) Pulmonary nodules: Code(s): R91.8 - Other nonspecific abnormal finding of lung field (3) Tobacco dependence: Comment: (current smoker, 1ppd) Code(s): F17.200 - Nicotine dependence, unspecified, uncomplicated Plan Will treat bronchitic symptoms with doxycycline. Mild improvement after duoneb, continued wheezing and bibasilar crackles appreciated. Will send for CXR and send prednisone for continued wheezing. Patient is aware if symptoms do not improve to call office and if worsen, seek emergent care. Will follow up with Dr. Tejada for regularly scheduled appointment or sooner if needed. All questions were answered and patient is in agreement of plan. Orders: Orders XR chest 2V Today R05.9 - Cough, unspecified AMB Nebulizer Treatment Today J44.9 - Chronic obstructive pulmonary disease, unspecified, R05.9 - Cough, unspecified Medications: New albuterol sulfate 90 mcg/actuation 2 puffs inhalation Q4-6H PRN 1 ea 3RF shortness of breath or wheezing prednisone Take 4 pills daily for 5 days, then go down by 1 pill every 5 days; 20 days 50 tabs 0RF 10 mg PO DIRECTED 50 tabs 0RF doxycycline hyclate 100 mg PO BID 20 caps 0RF Quality Reporting (2019) Adult ([facility] 13805/05/68) Smoking risk assessment performed?: Yes Patient Tobacco Use Status: Current everyday Tobacco user Coding Level of Care Code Est Pt Level 4 (34101) Diagnoses Simple chronic bronchitis J41.0 COPD type: chronic bronchitis Chronic bronchitis type: simple Pulmonary nodules R91.8 Tobacco dependence F17.200 CPT Codes Nebulizer Treatment - Nebulizer Treatment, initial or subsequent: [id number]/[id number] RX initial, or Nebulizer Subsequent Treatment ([id number])
[2023-03-16 14:24] VITALS: BP 108/68; PULSE 105; O2SAT 94; BMI 27.1
== END 2023-03-16 14:58 | disposition home or self-care (01) ==
PROVIDERS: PCP Internal Medicine Medical Oncology; Visit Provider Nurse Practitioner Family
DX: J41.0 Simple chronic bronchitis (principal); R91.8 Other nonspecific abnormal finding of lung field; F17.200 Nicotine dependence, unspecified, uncomplicated; R05.9 Cough, unspecified
CPT/HCPCS: 99214

== ENCOUNTER 2023-06-14 10:32 | Outpatient (AMB) | payer BC, SELFPAY ==
[2023-06-14 10:54] VITALS: PULSE 86; O2SAT 94; BMI 27.5
--- NOTE | 2023-06-14 10:54 | A.OFFVIS_ITS ---
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 He was evaluated last year by Pulmonary and she had been placed on the lung cancer screening program. There she had a CT scan of the chest back at [facility] in September 29, 2018 demonstrating multiple pulmonary nodules 1 measuring 5 mm in size and spiculated in nature. In addition to that she had extensive emphysema. She continues to smoke cigarettes unfortunately 1 pack a day. She continues use her inhalers with partial improving her symptoms. She does complaint of dyspnea on exertion even with minimal activity. Denies any significant mucus production. Denies any significant congestion. She states that has been smoking and also her others children smoke. We talked about the importance of smoking cessation. She is motivating wants to quit. I did provide her with a letter to provide her family. She is trying to cut down on her smoking with the nicotine patch Wellbutrin. She is down to 2 cigarettes a day which is very good for her. She is going to strive to quit completely. In the meantime she did have her low-dose CT scan with stable pulmonary nodules and moderate degree of emphysema. She also had PFTs demonstrating severe COPD and severe diffusion impairment. The patient is trying to stay active. 03/23/2022 the patient is here for a pulm onary follow-up visit. Overall the patient is doing well. She continues use the Trelegy inhaler with good effect. Still having a cough which is congested in nature. Typical of her smoker's cough. Nesg-wq-macqpcal severity. Also complains of shortness of breath with activity. Mild in severity. She did have a recent CT scan of the chest which is reassuring. She is going to continue with the lung cancer screening program at this time. In addition to that she needs to quit smoking. She tried Wellbut rin and also that nicotine patch without any improvement with her tobacco cessation. Therefore, I will have her we would try her Chantix. In the past she did try and have GI symptoms. This time she is going to start the Chantix but be smoking less to minimize on the adverse effects of the smoking related negative feedback. 12/21/2022 the patient is here for a pul monary follow-up visit. She is complaining of productive cough. Moderate severity. Trelegy is been helping. She has also been taking Mucinex twice a day. The patient finds helpful. Her mucus is pale in color. The patient is wondering if there is any other medication she can take. She did have a CT scan of the chest in October 2022 demonstrating stable pulmonary nodules. She is now rads 2. She should get a CT scan now in a year's time. In addition to that the patient is looking to quit smoking. She is not completely ready. I did give her a prescription for Chantix the last visit but she has not started as of yet. I did encourage her to start even if she is not ready at this time. The patient will try some ice in 4 months. If the patient feels better she can stop it. Otherwise she can also consider going on Daliresp or longer bout of azithromycin if it was effective. 12/21/2022 the patient is here for a pul [facility] follow-up visit. Overall the patient is doing well. She still complaining of productive cough. She has been on the Trelegy inhaler that is been affected. Will try her on macrolide therapy for a month and see if she benefits. Otherwise she will be a good candidate for Daliresp. The patient is aware that he does have GI side effects. Unfortunately she is still smoking. She has not started the Chantix as of yet. She is waiting for her to be completely ready. Explained to her that with Chantix she does have to wait to be completely ready to quit and she can not smoke while on Chantix with the hope that she starts disliking in having a negative feedback effect from the smoking while in Chantix. She is going to consider starting at this time. She is also participating in the lung cancer screening program. Last CT scan October 2022 was still reassuring. Therefore she will get a repeat CT scan in a year's time. Will follow-up in 6 months. 06/14/2023 the patient is here for pulmona ry follow-up visit. Since we last spoke the patient was seen for a COPD exacerbation. She was given doxycycline and prednisone. She felt a lot better on the doxycycline. Her symptoms did improve her now returning. Will go ahead and send another course of doxycycline to make sure. The patient does have chronic bronchitis from her COPD. She has frequent flare-ups. She will be a great candidate for Daliresp. She understands that has not GI side effects. She will be careful. I will give her some antinausea medications as needed. I am hoping she can tolerated and then we can increase to therapeutic dose. In the meantime she continues to smoke cigarettes. She has not smoked in 24 hours. She does have a hard time. She does have patches at home that she will try. The patient is also participating in the lung cancer screening program. Her next CT scan will be in October 2023. Will follow-up in the fall. If the patient wants to increase the Daliresp does she can always call and I can send a script prior to the next visit. [facility] Medical History Nicotine dependence, cigarettes, uncomplicated Pulmonary nodules COPD (chronic obstructive pulmonary disease) Social History (Updated 03/16/23 @ 14:30 by Lucille Montiel LPN) Patient Tobacco Use Status: Current everyday Tobacco user Cigarette Packs Per Day: 1 Cigarettes Per Day: 1 Years Smoked: 45 years Review of Systems Const Denies fever(s) and Denies night sweats ENT Denies change in voice, Denies lip swelling, Denies mouth pain, Denies nasal congestion, Denies nasal discharge and Denies tongue swelling Card Denies chest pain and Reports dyspnea on exertion Resp Reports chest congestion, Reports cough, Reports dyspnea on exertion and Reports wheezing GI Denies abdominal pain Musc Denies no additional complaints Skin/Breast Denies rash Neuro Denies Neuro-related abnormal movements Psych Denies no additional complaints Khadar/Lymph Denies easy bleeding and Denies lymphadenopathy Aller/Immun Denies lip swelling, Denies tongue swelling and Reports wheezing Physical Exam Vital Signs: Last Vital Signs Pulse 86 06/14/23 10:54 Pulse Ox 94 06/14/23 10:54 Oxygen Delivery Method Room Air 06/14/23 10:54 BMI result Body Mass Index 27.5 Const General: alert HEENT General nose exam: Abnormal external nose present and Nasal discharge present Eyes Pupils: Equal, round and reactive pupils present Neck Neck: Yes normal visual inspection, Yes full ROM and Yes no lymphadenopathy Chest Chest palpation & inspection: normal inspection of the chest Resp Auscultation: no wheezes and diminished lung sounds Cardio Rate: regular rate Rhythm: regular rhythm Heart sounds: S1 normal heart sound present and S2 normal heart sound present GI Palpation (GI): Soft to palpation and nontender Auscultation: normal bowel sounds General: Yes no CVA tenderness Back/Spine/Pelvis Back: no CVA tenderness Skin General skin exam: rashes and/or lesions noted Neuro Cranial nerves: Yes Equal, round and reactive pupils present Assessment & Plan Assessment & Plan (1) COPD (chronic obstructive pulmonary disease): Code(s): J44.9 - Chronic obstructive pulmonary disease, unspecified Qualifiers: COPD type: chronic bronchitis Chronic bronchitis type: simple Qualified Code(s): J41.0 - Simple chronic bronchitis (2) Pulmonary nodules: Code(s): R91.8 - Other nonspecific abnormal finding of lung field (3) Tobacco dependence: Comment: (current smoker, 1ppd) Code(s): F17.200 - Nicotine dependence, unspecified, uncomplicated Plan continue Trelegy 200 Nebulizer therapy consider starting chantix CT chest LDCT, RADS 2 start Doxycycline start Daliresp 250mcg F/U 6 months Medications: New roflumilast (Daliresp) 250 mcg PO DAILY 30 days 30 tabs 11RF J44.9 - Chronic obstructive pulmonary disease, unspecified doxycycline monohydrate 100 mg PO BID 14 days 28 tabs 0RF ondansetron HCl 4 mg PO Q8H 10 days PRN 20 tabs 0RF nausea and vomiting Quality Reporting (2019) Adult ([facility] 138//) Smoking risk assessment performed?: Yes Patient Tobacco Use Status: Current everyday Tobacco user Coding Level of Care Code Est Pt Level 4 (16142) Diagnoses Simple chronic bronchitis J41.0 COPD type: chronic bronchitis Chronic bronchitis type: simple Pulmonary nodules R91.8 Tobacco dependence F17.200 Time Spent (min) 17
== END 2023-06-14 11:12 | disposition home or self-care (01) ==
PROVIDERS: PCP Internal Medicine Medical Oncology; Visit Provider Hospitalist
DX: J41.0 Simple chronic bronchitis (principal); R91.8 Other nonspecific abnormal finding of lung field; F17.200 Nicotine dependence, unspecified, uncomplicated
CPT/HCPCS: 99214

== ENCOUNTER → 2023-06-14 10:32 | Outpatient (BNVA) | payer BC, SELFPAY | PROVIDERS: PCP Internal Medicine Medical Oncology; Visit Provider Hospitalist | DX: K21.9 Gastro-esophageal reflux disease without esophagitis (principal) ==

== ENCOUNTER 2023-10-26 11:22 | Outpatient (REF) | payer BC, SELFPAY ==
[2023-10-26 13:21] LABS: MANUAL DIFF FLAG NO
[2023-10-26 13:46] LABS: Basophils Absolute Auto 0.1 X10*3/uL (0.0-0.2); Eosinophils Absolute Auto 0.1 X10*3/uL (0.0-0.4); Eosinophils Percent Auto 1.8 % (0-4); Hematocrit 40.9 % (37.0-47.0); Hemoglobin 13.6 g/dl (12.0-16.0); Imm Gran Abs Auto 0.02 X10*3/uL (0.00-0.03); Imm Gran Pct Auto 0.3 % (0.0-0.4); Lymphocytes Absolute Auto 1.9 X10*3/uL (1.2-4.9); Lymphocytes Percent Auto 28.7 % (20-40); Mean Corpuscular HGB Conc 33.3 g/dl (31.0-35.0); Mean Corpuscular Hemoglobin 30.2 pg (27.0-33.0); Mean Corpuscular Volume 90.7 fL (80.0-98.0); Mean Platelet Volume 9.4 fL (9.4-12.3); Monocytes Absolute Auto 0.5 X10*3/uL (0.1-1.2); Monocytes Percent Auto 7.8 % (2-11); Neutrophils Absolute Auto 4.1 x10*3/uL (2.0-8.3); Neutrophils Percent Auto 60.4 % (45-73); Platelet Count 251 X10*3/uL (160-400); Red Blood Count 4.51 X10*6/uL (4.20-5.50); Red Cell Distribution Width 12.8 % (11.0-16.0); White Blood Count 6.7 X10*3/uL (4.8-10.8)
[2023-10-26 13:49] LABS: Alanine Aminotransferase 13 U/L (0-31); Albumin Level 4.1 g/dL (3.5-5.0); Alkaline Phosphatase 83 U/L (39-117); Anion Gap 14 (12-20); Aspartate Amino Transferase 14 U/L (5-31); Bilirubin Total 0.4 mg/dL (0.0-1.0); Blood Urea Nitrogen 18 mg/dL (9-16); Calcium 9.5 mg/dL (8.4-10.2); Carbon Dioxide 26 mmol/L (22-29); Chloride 102 mmol/L (96-108); Estimated Glomerular Filt Rate > 60; Glucose Random 101 mg/dL (60-115); Potassium 3.8 mmol/L (3.3-5.1); Sodium 138 mmol/L (135-145); Total Protein 7.3 g/dL (6.5-8.0)
== END 2023-10-26 11:23 | disposition home or self-care (01) ==
LOC: HO.10HDL 11:22
PROVIDERS: Visit Provider Internal Medicine Medical Oncology
DX: E66.3 Overweight (principal)
CPT/HCPCS: 36415; 80053; 85025

== ENCOUNTER 2023-10-31 07:44 | Outpatient (REF) | payer BC, SELFPAY ==
--- NOTE | ~2023-10-31 | CT_ITS ---
EXAMINATION: CT LOW-DOSE SCREENING CHEST WITHOUT CONTRAST CLINICAL INFORMATION: Annual LDCT. Nicotine dependence, cigarettes, uncomplicated. The patient is a current smoker with a 25 pack-year history of smoking. COMPARISON: X-ray chest March 16, [address] chest October 27, 2022. TECHNIQUE: Multidetector volumetric CT imaging of the chest is performed on a Siemens SOMATOM Definition scanner without contrast using low dose technique. Additional 2D coronal and sagittal reformatted images and axial 3D maximum intensity projection (MIP) images are generated on the CT workstation. This CT examination was performed using dose optimization techniques as appropriate, variously including the following: *Automated exposure control. *Adjustment of mA and/or kV according to patient size (this includes techniques or standardized protocols for targeted exams where dose is matched to indication/reason for exam; i.e. extremities or head). *Use of iterative reconstruction technique. TOTAL EXAM DLP: 46 mGy-cm. CTDIvol: 1.31 mGy. FINDINGS: PULMONARY NODULES: Again noted are a few unchanged nodular opacities, includin mm foci in the anterolateral right upper lobe (5:160 compare prior 5:159). 3 mm lateral left upper lobe (5:178 compare prior 5:168). 5 mm left upper lobe nodule unchanged (5:114 compare prior 5:104). There is no suspicious, new or enlarging lung nodule. There are some scattered areas of endobronchial mucous. 3 mm anteromedial left upper lobe seen previously (prior 5:240) is resolved. LUNGS: Lungs bilaterally symmetrically expanded. Again seen are marked emphysematous changes along with bronchial thickening without bronchiectasis. No effusion or pneumothorax. Central airways patent. MEDIASTINUM: No mediastinal, hilar or axillary adenopathy or free fluid collection. CORONARY ARTERY CALCIFICATION: Minimal. THYROID GLAND: Unremarkable to the extent seen. CARDIOVASCULAR STRUCTURES: Aortic and heart size normal. No pericardial effusion. CHEST WALL/AXILLA: Unremarkable. UPPER ABDOMEN: Included portions of the solid organs in the upper abdomen unremarkable on noncontrast imaging. Benign cyst left lobe of liver needs no additional imaging or follow-up. OSSEOUS STRUCTURES: No suspicious focal findings. CT/CT lung screening IMPRESSION: No findings seen suspicious for malignancy. ASSESSMENT: 1. Lung-RADS Category 2: Benign appearance or behavior of nodules. N/A. 2. Lung-RADS Category S: Negative. There are no clinically significant or potentially clinically significant findings not related to the lungs requiring urgent additional evaluation. RECOMMENDATION: Continued routine annual low-dose CT lung screening in 1 year is recommended. An order for CT CHEST LOW DOSE CANCER SCREENING ([id number]) can be placed. Electronically signed by: Don Howard MD 12/02/2023 12:57 AM EDT
== END 2023-10-31 07:45 | disposition home or self-care (01) ==
LOC: HO.CT 07:44
PROVIDERS: PCP Internal Medicine Medical Oncology; Visit Provider Physician Assistant Medical
DX: Z12.2 Encounter for screening for malignant neoplasm of respiratory organs (principal); F17.210 Nicotine dependence, cigarettes, uncomplicated
CPT/HCPCS: 71271

== ENCOUNTER 2023-11-24 14:34 | Outpatient (AMB) | payer BC, SELFPAY ==
--- NOTE | 2023-11-24 14:38 | MHC.OFFVIS ---
Vital Signs 11/24/23 14:40 Height 5 ft 4 in Weight 157 lb 10.088 oz BMI 27.1 BP 110/60 Blood Pressure Location Lt brachial Position Sitting Pulse 87 Pulse Source Pulse Oximeter Pulse Oximetry (%) 94 Oxygen Delivery Method Room Air Intake Visit Reasons: COPD Formation Testing Operator Required: No Allergies meperidine [From DEMEROL] Adverse Reaction (Intermediate, Verified 11/24/23 14:43) NAUSEA & VOMITING Demerol Allergy (Unknown, Uncoded 11/24/23 14:43) vomiting HPI Comments Details: The patient is a 63-year-old woman known COPD in addition to tobacco dependency. He was evaluated last year by Pulmonary and she had been placed on the lung cancer screening program. There she had a CT scan of the chest back at [facility] in September 29, 2018 demonstrating multiple pulmonary nodules 1 measuring 5 mm in size and spiculated in nature. In addition to that she had extensive emphysema. She continues to smoke cigarettes unfortunately 1 pack a day. She continues use her inhalers with partial improving her symptoms. She does complaint of dyspnea on exertion even with minimal activity. Denies any significant mucus production. Denies any significant congestion. She states that has been smoking and also her others children smoke. We talked about the importance of smoking cessation. She is motivating wants to quit. I did provide her with a letter to provide her family. She is trying to cut down on her smoking with the nicotine patch Wellbutrin. She is down to 2 cigarettes a day which is very good for her. She is going to strive to quit completely. In the meantime she did have her low-dose CT scan with stable pulmonary nodules and moderate degree of emphysema. She also had PFTs demonstrating severe COPD and severe diffusion impairment. The patient is trying to stay active. 03/23/2022 the patient is here for a pulmonary follow-up visit. Overall the patient is doing well. She continues use the Trelegy inhaler with good effect. Still having a cough which is congested in nature. Typical of her smoker's cough. Jvee-cx-irwaaxbz severity. Also complains of shortness of breath with activity. Mild in severity. She did have a recent CT scan of the chest which is reassuring. She is going to continue with the lung cancer screening program at this time. In addition to that she needs to quit smoking. She tried Wellbutrin and also that nicotine patch without any improvement with her tobacco cessation. Therefore, I will have her we would try her Chantix. In the past she did try and have GI symptoms. This time she is going to start the Chantix but be smoking less to minimize on the adverse effects of the smoking related negative feedback. 12/21/2022 the patient is here for a pulmonary follow-up visit. She is complaining of productive cough. Moderate severity. Trelegy is been helping. She has also been taking Mucinex twice a day. The patient finds helpful. Her mucus is pale in color. The patient is wondering if there is any other medication she can take. She did have a CT scan of the chest in October 2022 demonstrating stable pulmonary nodules. She is now rads 2. She should get a CT scan now in a year's time. In addition to that the patient is looking to quit smoking. She is not completely ready. I did give her a prescription for Chantix the last visit but she has not started as of yet. I did encourage her to start even if she is not ready at this time. The patient will try some ice in 4 months. If the patient feels better she can stop it. Otherwise she can also consider going on Daliresp or longer bout of azithromycin if it was effective. 12/21/2022 the patient is here for a pulmonary follow-up visit. Overall the patient is doing well. She still complaining of productive cough. She has been on the Trelegy inhaler that is been affected. Will try her on macrolide therapy for a month and see if she benefits. Otherwise she will be a good candidate for Daliresp. The patient is aware that he does have GI side effects. Unfortunately she is still smoking. She has not started the Chantix as of yet. She is waiting for her to be completely ready. Explained to her that with Chantix she does have to wait to be completely ready to quit and she can not smoke while on Chantix with the hope that she starts disliking in having a negative feedback effect from the smoking while in Chantix. She is going to consider starting at this time. She is also participating in the lung cancer screening program. Last CT scan October 2022 was still reassuring. Therefore she will get a repeat CT scan in a year's time. Will follow-up in 6 months. 06/14/2023 the patient is here for pulmonary follow-up visit. Since we last spoke the patient was seen for a COPD exacerbation. She was given doxycycline and prednisone. She felt a lot better on the doxycycline. Her symptoms did improve her now returning. Will go ahead and send another course of doxycycline to make sure. The patient does have chronic bronchitis from her COPD. She has frequent flare-ups. She will be a great candidate for Daliresp. She understands that has not GI side effects. She will be careful. I will give her some antinausea medications as needed. I am hoping she can tolerated and then we can increase to therapeutic dose. In the meantime she continues to smoke cigarettes. She has not smoked in 24 hours. She does have a hard time. She does have patches at home that she will try. The patient is also participating in the lung cancer screening program. Her next CT scan will be in October 2023. Will follow-up in the fall. If the patient wants to increase the Daliresp does she can always call and I can send a script prior to the next visit. 11/24/2023 the patient is here for a pulmonary follow-up visit. The patient overall is doing fair. Still having dyspnea on exertion. Klnu-na-frjbndrs severity. The patient does have a cough. Seems like the cough is not going away. Sometimes is productive. The patient did not start the Daliresp because it was misplaced. She recently found and she is going to be started. We did look at her CT scan of the chest to the lung cancer screening program. He has not been officially read. She has extensive emphysema. Nodules that have been present before him appeared to be stable. The patient does understand that her emphysema causes concerned about her smoking. The patient has tried quitting although she is having hard time. She is still smoking about 7 cigarettes a day. She has cut down significantly. She is willing to try Wellbutrin. Apparently Chantix caused depression so will try to avoid that. We did go for brief walking oximetry in the office. The patient did desaturate down to 85% with activity and she was visibly winded with dyspnea score of 7/10. The patient is not interested in oxygen at this time. She is still working. She is considering retiring addition 65. Will plan to have her come back in 6 months with pulmonary function studies and we can consider pulmonary rehabilitation at that point. PFSH Medical History Nicotine dependence, cigarettes, uncomplicated Pulmonary nodules COPD (chronic obstructive pulmonary disease) Social History (Updated 03/16/23 @ 14:30 by Lucille Montiel LPN) Patient Tobacco Use Status: Current everyday Tobacco user Cigarette Packs Per Day: 1 Cigarettes Per Day: 1 Years Smoked: 45 years Review of Systems Const Denies fever(s) and Denies night sweats ENT Denies change in voice, Denies lip swelling, Denies mouth pain, Denies nasal congestion, Denies nasal discharge and Denies tongue swelling Card Denies chest pain and Reports dyspnea on exertion Resp Reports chest congestion, Reports cough, Reports dyspnea on exertion and Reports wheezing GI Denies abdominal pain Musc Denies no additional complaints Skin/Breast Denies rash Neuro Denies Neuro-related abnormal movements Psych Denies no additional complaints Khadar/Lymph Denies easy bleeding and Denies lymphadenopathy Aller/Immun Denies lip swelling, Denies tongue swelling and Reports wheezing Physical Exam Vital Signs: Last Vital Signs Pulse 87 11/24/23 14:40 BP 110/60 11/24/23 14:40 Pulse Ox 94 11/24/23 14:40 Oxygen Delivery Method Room Air 11/24/23 14:40 BMI result Body Mass Index 27.1 Const General: alert HEENT General nose exam: Abnormal external nose present and Nasal discharge present Eyes Pupils: Equal, round and reactive pupils present Neck Neck: Yes normal visual inspection, Yes full ROM and Yes no lymphadenopathy Chest Chest palpation & inspection: normal inspection of the chest Resp Effort & Inspection: prolonged expiratory phase Auscultation: no wheezes and diminished lung sounds Cardio Rate: regular rate Rhythm: regular rhythm Heart sounds: S1 normal heart sound present and S2 normal heart sound present GI Palpation (GI): Soft to palpation and nontender Auscultation: normal bowel sounds General: Yes no CVA tenderness Back/Spine/Pelvis Back: no CVA tenderness Skin General skin exam: rashes and/or lesions noted Neuro Cranial nerves: Yes Equal, round and reactive pupils present Quality Reporting (2019) Adult ([facility] 138///69) Smoking risk assessment performed?: Yes Patient Tobacco Use Status: Current everyday Tobacco user Assessment & Plan Assessment & Plan (1) COPD (chronic obstructive pulmonary disease): Code(s): J44.9 - Chronic obstructive pulmonary disease, unspecified Category: Medical Qualifiers: COPD type: emphysema Emphysema type: centrilobular Qualified Code(s): J43.2 - Centrilobular emphysema (2) Pulmonary nodules: Code(s): R91.8 - Other nonspecific abnormal finding of lung field Category: Medical (3) Tobacco dependence: Comment: (current smoker, 1ppd) Code(s): F17.200 - Nicotine dependence, unspecified, uncomplicated Category: Medical Plan continue Trelegy 200 Nebulizer therapy prednisone taper azithromycin start Wellbutrin CT chest LDCT, RADS 2 start Daliresp 250mcg, will call for 500mcg dose PFTs in 6 months Does not want oxygen supplementation at this time F/U 6 months Orders: Orders PFT pulmonary function test 5 Months J43.2 - Centrilobular emphysema Medications: New azithromycin 500 mg PO DAILY 5 days 5 tabs 0RF prednisone PO daily; Take 2 tabs daily x 5 days, then 1 tablet daily x 5 days 10 days 15 tabs 0RF bupropion HCl XL 150 mg PO QAM 30 days 30 tabs 10RF Coding Level of Care Code Est Pt Level 4 (01946) Diagnoses Centrilobular emphysema J43.2 COPD type: emphysema Emphysema type: centrilobular Pulmonary nodules R91.8 Tobacco dependence F17.200 Time Spent (min) 17
[2023-11-24 14:40] VITALS: BP 110/60; PULSE 87; O2SAT 94; BMI 27.1
== END 2023-11-24 15:09 | disposition home or self-care (01) ==
PROVIDERS: PCP Internal Medicine Medical Oncology; Visit Provider Hospitalist
DX: J43.2 Centrilobular emphysema (principal); R91.8 Other nonspecific abnormal finding of lung field; F17.200 Nicotine dependence, unspecified, uncomplicated
CPT/HCPCS: 99214

== ENCOUNTER → 2023-11-24 14:34 | Outpatient (BNVA) | payer BC, SELFPAY | PROVIDERS: PCP Internal Medicine Medical Oncology; Visit Provider Hospitalist | DX: K21.9 Gastro-esophageal reflux disease without esophagitis (principal); J44.9 Chronic obstructive pulmonary disease, unspecified ==

== ENCOUNTER 2023-12-03 08:48 | Outpatient (REF) | payer BC, SELFPAY ==
--- NOTE | ~2023-12-03 | MM_ITS ---
EXAMINATION: MM SCREENING DIGITAL BREAST TOMOSYNTHESIS, BILATERAL CLINICAL INFORMATION: Screening. Asymptomatic. COMPARISON: Mammography: Comparison is made with available priors TECHNIQUE: Digital breast mammography with tomosynthesis is performed in both the craniocaudal and mediolateral oblique views along with computer-aided detection (CAD). FINDINGS: There are scattered areas of fibroglandular density (ACR BI-RADS breast composition Category b). There are no significant masses, abnormal calcifications, or other abnormalities. MM/MM tomosynthesis screening BI IMPRESSION: No mammographic evidence of malignancy. ASSESSMENT: BI-RADS BI-RADS 1 - Negative RECOMMENDATION: Routine annual mammography screening. 1 year F/U This examination should not preclude the clinical evaluation of a suspicious palpable abnormality. This patient's information was entered into a reminder system with a target due date for their next mammogram. Electronically signed by: Kajal Crain DO 12/15/2023 11:15 AM EDT
== END 2023-12-03 08:49 | disposition home or self-care (01) ==
LOC: HO.MAMMO 08:48
PROVIDERS: PCP Internal Medicine Medical Oncology; Visit Provider Internal Medicine Medical Oncology
DX: Z12.31 Encounter for screening mammogram for malignant neoplasm of breast (principal)
CPT/HCPCS: 77063; 77067

== ENCOUNTER → 2023-12-03 09:00 | Outpatient (BNV) | payer BC, SELFPAY | PROVIDERS: PCP Internal Medicine Medical Oncology; Visit Provider Internal Medicine | DX: Z12.31 Encounter for screening mammogram for malignant neoplasm of breast (principal) | CPT/HCPCS: 77063; 77067 ==

== ENCOUNTER 2024-07-31 10:21 | Outpatient (REF) | payer BC, SELFPAY ==
--- OUTSIDE RECORDS SUMMARY | 2024-07-31 11:34 | XMS_ITS | Patient Health Record ---
Author Organization Cliff Painting III, MD Address [address] [place] [address] Care Team Providers Care Outside Contractor Sales Name Role Phone Cliff Painting Primary Care Provider Allergies Allergen (clinical drug ingredient) Drug/Non Drug Allergy documented on EMR Reaction Allergy Type Onset Date Status No Known Food Allergy Unknown Drug Allergy Active meperidine Demerol Unknown Drug Allergy Active Results Component Value Reference Range Notes Complete Blood Count Auto Di ff Reviewed date:10/28/2023 03:34:34 PM Interpretation: Performing Lab:[facility], [address] [place] [id number] Notes/Report: White Blood Count 6.7 4.8-10.8 X10*3/uL Red Blood Count 4.51 4.20-5.50 X10*6/uL Hemoglobin 13.6 12.0-16.0 g/dl Hematocrit 40.9 37.0-47.0 % Mean Corpuscular Volume 90.7 80.0-98.0 fL Mean Corpuscular Hemoglobin 30.2 27.0-33.0 pg Mean Corpuscular HGB Conc 33.3 31.0-35.0 g/dl Red Cell Distribution Width 12.8 11.0-16.0 % Platelet Count 251 160-400 X10*3/uL Mean Platelet Volume 9.4 9.4-12.3 fL Neutrophils Percent Auto 60.4 45-73 % Imm Gran Pct Auto 0.3 0.0-0.4 % Lymphocytes Percent Auto 28.7 20-40 % Monocytes Percent Auto 7.8 2-11 % Eosinophils Percent Auto 1.8 0-4 % Basophils Percent Auto 1.0 0-2 % NRBC Pct Auto 0.0 0.0-0.2 /100WBC Neutrophils Absolute Auto 4.1 2.0-8.3 x10*3/u L Imm Gran Abs Auto 0.02 0.00-0.03 X10*3/uL Lymphocytes Absolute Auto 1.9 1.2-4.9 X10*3/u L Monocytes Absolute Auto 0.5 0.1-1.2 X10*3/uL Eosinophils Absolute Auto 0.1 0.0-0.4 X10*3/u L Basophils Absolute Auto 0.1 0.0-0.2 X10*3/uL NRBC Abs Auto 0.000 0.0-0.012 X10*3/uL Comprehensive Met. Panel Reviewed date:10/28/2023 03:34:34 PM Interpretation: Performing Lab:[facility], [address] [place] [phone] Notes/Report: Sodium 138 135-145 mmol/L Potassium 3.8 3.3-5.1 mmol/L Chloride 102 96-108 mmol/L Carbon Dioxide 26 22-29 mmol/L Anion Gap 14 12-20 Blood Urea Nitrogen 18 9-16 mg/dL Creatinine 0.80 0.5-1.4 mg/dL Estimated Glomerular Filt Rate > 60 NOTE: For -[place] individuals, multiply the result by 1.210. Chronic Kidney Disease: Estimated GFR < 60 mL/min/1.73m2 Severe Kidney Disease: Estimated GFR < 15 mL/min/1.73m2 Glucose Random 101 60-115 mg/dL Calcium 9.5 8.4-10.2 mg/dL Bilirubin Total 0.4 0.0-1.0 mg/dL Aspartate Amino Transferase 14 5-31 U/L Alanine Aminotransferase 13 0-31 U/L Total Protein 7.3 6.5-8.0 g/dL Albumin Level 4.1 3.5-5.0 g/dL Alkaline Phosphatase 83 39-117 U/L CT lung screening Reviewed date:12/26/2023 07:54:49 AM Interpretation: Performing Lab: Notes/Report: [address] [address] [address] Scan Report Signed Patient: Mendy Corey MR#: [id number] 936 : 1960 Acct:[id number] Age/Sex: 63 / F ADM Date: 10/31/23 Loc: HO.CT Attending Dr: Terra Ho PA-C Ordering Physician: Terra Ho PA-C Date of Service: 10/31/23 Procedure(s): CT lung screening Accession Number(s): [id number] cc: Cliff Painting MD; Terra Ho PA-C EXAMINATION: CT LOW-DOSE SCREENING CHEST WITHOUT CONTRAST CLINICAL INFORMATION: Annual LDCT. Nicotine dependence, cigarettes, uncomplicated. The patient is a current smoker with a 25 pack-year history of smoking. COMPARISON: X-ray chest March 16, [address] chest October 27, 2022. TECHNIQUE: Multidetector volumetric CT imaging of the chest is performed on a Siemens SOMATOM Definition scanner without contrast using low dose technique. Additional 2D coronal and sagittal reformatted images and axial 3D maximum intensity projection (MIP) images are generated on the CT workstation. This CT examination was performed using dose optimization techniques as appropriate, variously including the following: *Automated exposure control. *Adjustment of mA and/or kV according to patient size (this includes techniques or standardized protocols for targeted exams where dose is matched to indication/reason for exam; i.e. extremities or head). *Use of iterative reconstruction technique. TOTAL EXAM DLP: 46 mGy-cm. CTDIvol: 1.31 mGy. FINDINGS: PULMONARY NODULES: Again noted are a few unchanged nodular opacities, includin mm foci in the anterolateral right upper lobe (5:160 compare prior 5:159). 3 mm lateral left upper lobe (5:178 compare prior 5:168). 5 mm left upper lobe nodule unchanged (5:114 compare prior 5:104). There is no suspicious, new or enlarging lung nodule. There are some scattered areas of endobronchial mucous. 3 mm anteromedial left upper lobe seen previously (prior 5:240) is resolved. LUNGS: Lungs bilaterally symmetrically expanded. Again seen are marked emphysematous changes along with bronchial thickening without bronchiectasis. No effusion or pneumothorax. Central airways patent. MEDIASTINUM: No mediastinal, hilar or axillary adenopathy or free fluid collection. CORONARY ARTERY CALCIFICATION: Minimal. THYROID GLAND: Unremarkable to the extent seen. CARDIOVASCULAR STRUCTURES: Aortic and heart size normal. No pericardial effusion. CHEST WALL/AXILLA: Unremarkable. UPPER ABDOMEN: Included portions of the solid organs in the upper abdomen unremarkable on noncontrast imaging. Benign cyst left lobe of liver needs no additional imaging or follow-up. OSSEOUS STRUCTURES: No suspicious focal findings. CT/CT lung screening IMPRESSION: No findings seen suspicious for malignancy. ASSESSMENT: 1. Lung-RADS Category 2: Benign appearance or behavior of nodules. N/A. 2. Lung-RADS Category S: Negative. There are no clinically significant or potentially clinically significant findings not related to the lungs requiring urgent additional evaluation. RECOMMENDATION: Continued routine annual low-dose CT lung screening in 1 year is recommended. An order for CT CHEST LOW DOSE CANCER SCREENING ([id number]) can be placed. Electronically signed by: Don Howard MD 12/02/2023 12:57 AM EDT RP Dictated By: Don Howard MD Signed By: <Electronically signed by Don Howard MD in OV> 12/02/23 0057 DD/ 0804 TD/TT: 10/31/23 0810 Director Cardiac: [place] [id number] CT Scan Report Signed Patient: Brandi Corey MR#: [id number] 936 : 1960 Acct:[id number] Age/Sex: 63 / F ADM Date: 10/31/23 Loc: HO.CT Attending Dr: Terra Ho PA-C Ordering Physician: Terra Ho PA-C Date of Service: 10/31/23 Procedure(s): CT danielle g screening Accession Number(s): [id number] cc: Cliff Painting MD; Terra Ho PA-C EXAMINATION: CT LOW-DOSE SCREENIN G CHEST WITHOUT CONTRAST CLINICAL INFORMATION: Annual LDCT. Nicotin e dependence, cigarettes, uncomplicated. The patient is a current smoker with a 25 pack-year history of smoking. COMPARISON: X-ray chest March 16, [address] chest October 27, 2022. TECHNIQUE: Multidetector volumetric CT imaging of the chest is performed on a Siemens SOMATOM Definition scanner without contrast using low dose technique. Additiona l 2D coronal and sagittal reformatted images and axial 3D maximum intensity projection (MIP) images are generated on the CT workstation. This CT examination was performed using dose optimization techniques as appropriate, various ly including the following: *Automated exposure control. *Adjustment of mA and/or kV according to patient size (this includes techniques or standardized protocols for targeted exams where dose is matched to indication/reason for exam; i.e. extremities or head). *Use of iterative reconstruction technique. TOTAL EXAM DLP: 46 mGy-cm. CTDIvol: 1.31 mGy. FINDINGS: PULMONARY NODULES: Again noted are a few unchanged nodular opacities, includin mm foci in the anterolateral right upper lobe (5:160 compare prior 5:159). 3 mm lateral left up per lobe (5:178 compare prior 5:168). 5 mm left upper lobe nodule unchanged (5:114 compare prior 5:104). There is no suspicio us, new or enlarging lung nodule. There are some scattered areas of endobronchial mucous. 3 mm anteromedial le ft upper lobe seen previously (prior 5:240) is resolved. LUNGS: Lungs bilaterally symmetrically expanded. Again seen are marked emphysematous change s along with bronchial thickening without bronchiectasis. No effusion or pneumothorax. Central airways patent. MEDIASTINUM: No mediastinal, hilar or axillary adenopathy or free fluid collection. CORONARY ARTERY CALCIFICATION: Minimal. THYROID GLAND: Unremarkable to the extent seen. CARDIOVASCULAR STRUCTURES: Aortic and heart size normal. No pericardial effusion. CHEST WALL/AXILLA: Unremarkable. UPPER ABDOMEN: Inclu ded portions of the solid organs in the upper abdomen unremarkable on noncontrast imaging. Benign cyst left lobe of liver needs no additional imaging or follow-up. OSSEOUS STRUCTURES: No suspicious focal findings. CT/CT lung screening IMPRESSION: No findings seen suspicious for malignancy. ASSESSMENT: 1. Lung-RADS Categor y 2: Benign appearance or behavior of nodules. N/A. 2. Lung-RADS Categor y S: Negative. There are no clinically significant or potentially clinically significant findings not related to the lungs requiring urgent additional evaluation. RECOMMENDATION: Continued routine annual low-dose CT lung screening in 1 year is recommended. An orde r for CT CHEST LOW DOSE CANCER SCREENING ([id number]) can be placed. Electronically hemant d by: Don Howard MD 12/02/2023 12:57 AM EDT RP Dictated By: Don Howard MD Signed By: <Electronically signed by Don Howard MD in OV> 12/02/23 0057 DD/ 0804 TD/TT: 10/31/23 0810 Director Cardiac: MM tomosynthesis screening B I Reviewed date:12/26/2023 07:54:49 AM Interpretation: Performing Lab: Notes/Report: [facility] [address] [place] [address] Mammography Report Signed Patient: Mendy Corey MR#: [id number] 936 : 1960 Acct:[id number] Age/Sex: 63 / F ADM Date: 12/03/23 Loc: HO.MAMMO Attending Dr: Cliff Painting MD Ordering Physician: Cliff Painting MD Results: 1Negativ e Date of Service: 12/03/23 Follow Up: 1 Year From [facility] Mammogram Procedure(s): MM tomosynthesis screening BI Accession Number(s): [id number] cc: Cliff Painting MD EXAMINATION: MM SCREENING DIGITAL BREAST TOMOSYNTHESIS, BILATERAL CLINICAL INFORMATION: Screening. Asymptomatic. COMPARISON: Mammography: Comparison is made with available priors TECHNIQUE: Digital breast mammography with tomosynthesis is performed in both the craniocaudal and mediolateral oblique views along with computer-aided detection (CAD). FINDINGS: There are scattered areas of fibroglandular density (ACR BI-RADS breast composition Category b). There are no significant masses, abnormal calcifications, or other abnormalities. MM/MM tomosynthesis screening BI IMPRESSION: No mammographic evidence of malignancy. ASSESSMENT: BI-RADS BI-RADS 1 - Negative RECOMMENDATION: Routine annual mammography screening. 1 year F/U This examination should not preclude the clinical evaluation of a suspicious palpable abnormality. This patient's information was entered into a reminder system with a target due date for their next mammogram. Electronically signed by: Kajal Crain DO 12/15/2023 11:15 AM EDT RP Dictated By: Kajal Crain DO Signed By: <Electronically signed by Kajal Crain DO in OV> 12/15/23 1115 DD/ 9 TD/TT: 12/03/23908 Director Cardiac: [facility] [address] [place], [place] [address] Mammography Report Signed Patient: Brandi Corey MR#: [id number] 936 : 1960 Acct:[id number] Age/Sex: 63 / F ADM Date: 12/03/23 Loc: HO.MAMMO Attending Dr: Cliff Painting MD Ordering Physician: Cliff Painting MD Results: 1Negativ e Date of Service: 12/03/23 Follow Up: 1 Year From Orig inal Mammogram Procedure(s): MM tomosynthesis screening BI Accession Number(s): [id number] cc: Cliff Painting MD EXAMINATION: MM SCREENING DIGITAL BREAST TOMOSYNTHESIS, BILATERAL CLINICAL INFORMATION: Screening. Asymptomatic. COMPARISON: Mammography: Compari son is made with available priors TECHNIQUE: Digital breast mammography with tomosynthesis is performed in both the craniocaudal and mediolateral oblique views along with computer-aided detection (CAD). FINDINGS: There are scattered areas of fibroglandular density (ACR BI-RADS breast composition Category b). There are no significant masses, abnormal calcifications, or other abnormalities. MM/MM tomosynthesis screening BI IMPRESSION: No mammographic evidence of malignancy. ASSESSMENT: BI-RADS BI-RADS 1 - Negative RECOMMENDATION: Routine annual mammography screening. 1 year F/U This examination bailey uld not preclude the clinical evaluation of a suspicious palpable abnormality. This patient's information was entered into a reminder system with a target due date for their next mammogram. Electronically hemant d by: Kajal Crain DO 12/15/2023 11:15 AM EDT RP Dictated By: Kajal Crain DO Signed By: <Electronically signed by Kajal Crain DO in OV> 12/15/23 1115 DD/ 9 TD/TT: 12/03/23908 Director Cardiac: Reason For Referral No Information Medications Medication SIG (Take, Route, Frequency, Duration) Notes Start Date End Date Status Albuterol Sulfate HFA 108 (90 Base) MCG/ACT 1 puff as needed Inhalation every 4 hrs 03/13/2020 Active Trelegy Ellipta 200-62.5-25 MCG/ACT 1 puff Inhalation Once a day Active buPROPion HCl ER (XL) 150 MG Oral Active Immunizations Vaccine Route Administration Date Status Comme nts Pneumococcal IM Intramuscular 04/06/2013 Administered COVID-19 Moderna SPIKEVAX Unknown 12/02/2023 Administer ed Social History Tobacco Use: Social History Observation Description Date Details (start date - stop date) Current Smoker NA - NA Sex Assigned At : Social History Observation Description Sex Assigned At Female Tobacco Use/Smoking Question Answer Notes Patient is a current smoker How often do you smoke cigarettes? every day How many cigarettes a day do you smoke? 6-10 How soon after you wake up d o you smoke your first cigarette? 31-60 minutes Are you interested in quitting? Not ready to [place] t Additional Findings: Tobacco User Light cigarett e smoker ((1-9 cigs/day) Alcohol Screen Question Answer Notes Did you have a drink contain ing alcohol in the past year? Yes How often did you have a dri nk containing alcohol in the past year? Monthly or less (1 point) How many drinks did you have on a typical day when you were drinking in the past year? 1 or 2 drinks (0 point) How often did you have 6 or more drinks on one occasion in the past year? Never (0 point) Points 1 Interpretation Negative Problems Problem Type SNOMED Code ICD Code Onset Dates Problem Status W/U Status Risk Notes Problem 833813802 Overweight (E66.3) Active confirmed She has gained 5 pounds over the winter. We discussed her diet and nutrition. We made a plan to lose weight at a rate of one half of a pound per week through a diet restricted in calories combined with exertional exercise. Problem 50361600 Depression (F32.9) Active confirmed She denies feeling depressed. She has been conducting all of the activities of daily life without impairment. Problem 249980570 Unspecified asthma, uncomplicated (J45.909) Active confirmed She reports shortness of breath and some wheezing. She has been given 7 days of prednisone. Problem 638767979 Menopausal and female climacteric states (N95.1) Active confirmed She continues to be in a postmenopausal state without vaginal bleeding or periods. Problem 86594198 Tobacco dependence (F17.200) Active confirmed She continues t o smoke cigarettes. She is trying very hard to stop. She is smoking 3 a day and is well aware of the health consequences of continued smoking. She has been made aware of the smoke [facility] program and examined of the smoking cessation programs available at all of the local hospitals. Problem Osteopenia (329566167) Osteopenia (M85.80) Active confirmed She continues her regimen of calcium carbonate and vitamin D. Problem 3632989 Psoriasis (L40.9) Active confirmed Her psoriasis was minimal today. She has patches of erythema on the lower extremities, but they are not pruritic and do not affect her ability in the activities of daily living. Problem 743829226 Panic attacks (F41.0) Active confirmed She has had no panic attacks recently and seemed quite calm today. This problem seems to be well controlled. Problem 47797058 Agoraphobia (F40.00) Active confirmed This problem matthews s been well controlled in recent years and is not a problem for her today. Vital Signs Heart Rate 77 /min 07/23/2024 Temperature 98.2 degrees Fahrenheit 07/23/2024 Blood pressure diastolic 72 mm Hg 07/23/2024 Height 64 in 07/23/2024 Blood pressure systolic 98 mm Hg 07/23/2024 Weight 167 lbs 07/23/2024 BMI 28.66 kg/m2 07/23/2024 Encounters Encounter Location Date Provider Diagnosis Cliff Painting III, MD [address] [place] [address] [place] [phone] 10/26/2023 Cliff Painting Overweight E66.3 ; Colitis K52.9 ; Tobacco dependence F17.200 ; Unspecified asthma, uncomplicated J45.909 and Cough R05 Cliff Painting III, MD [address] [place] [address] [place] [address] 10/28/2023 Cliff Painting Overweight E66.3 ; Unspecified asthma, uncomplicated J45.909 ; Cough R05 ; Hematochezia K92.1 ; Depression F32.9 ; Tobacco dependence F17.200 ; Agoraphobia F40.00 ; Panic attacks F41.0 and Psoriasis L40.9 Cliff Painting III, MD [address] [place] [address] [place], [place] [address] 01/24/2024 Cliff Painting Overweight E66.3 ; Unspecified asthma, uncomplicated J45.909 ; Tobacco dependence F17.200 and Depression F32.9 Cliff Painting III, MD [address] [place] [address] [place], [place] [address] 03/08/2024 Cliff Painting Overweight E66.3 ; Tobacco dependence F17.200 ; Depression F32.9 ; Unspecified asthma, uncomplicated J45.909 and Acute bronchitis due to other specified organisms J20.8 Cliff Painting III, MD [address] [place] [address] [place] [address] 07/23/2024 Cliff Painting Overweight E66.3 ; Tobacco dependence F17.200 ; Depression F32.9 and Osteopenia M85.80 Cliff Painting III, MD [address] [place] [address] [place] [address] 10/28/2023 Cliff Painting Assessments Encounter Date Diagnosis (ICD Code) Assessment Notes Treat ment Notes Treatment Clinical Notes 10/26/2023 Overweight (ICD-10 - E66.3) Over the last year she has been successful in losing weight. Her body mass index is 26. 10/26/2023 Colitis (ICD-10 - K52.9) She has had some abdominal pain with one episode of hematochezia. Database will be established on this will be observed. If necessary she will see gastroenterology. At this point appears to be infectious. 10/28/2023 Overweight (ICD-10 - E66.3) We have discussed her diet and her nutrition. We reviewed her weight loss strategy. We made a plan to lose weight at a rate of one half of a pound per week through a diet restricted in fat calories and sodium. 10/28/2023 Unspecified asthma, uncomplicated (ICD-10 - J45.909) There was no wheezing today. She does not use her inhaler recently. She is breathing room air comfortably. 01/24/2024 Overweight (ICD-10 - E66.3) We have discussed her diet and her nutrition. We reviewed her weight loss strategy. We made a plan to lose weight at a rate of one half of a pound per week through a diet restricted in fat calories and sodium. 01/24/2024 Unspecified asthma, uncomplicated (ICD-10 - J45.909) There was no wheezing today. She does not use her inhaler recently. She is breathing room air comfortably. 03/08/2024 Overweight (ICD-10 - E66.3) She weighs 162 pounds with a body mass index of 27. We have discussed her diet and her nutrition. We reviewed her weight loss strategy. We made a plan to lose weight at a rate of one half of a pound per week through a diet restricted in fat calories and sodium. 03/08/2024 Tobacco dependence (ICD-10 - F17.200) She continues to smoke cigarettes. She is trying very hard to stop. She is smoking 7 or 8 a day and is well aware of the health consequences of continued smoking. She has been made aware of the smoke [facility] program and examined of the smoking cessation programs available at all of the local hospitals. 07/23/2024 Overweight (ICD-10 - E66.3) She has gained 5 pounds over the winter. We discussed her diet and nutrition. We made a plan to lose weight at a rate of one half of a pound per week through a diet restricted in calories combined with exertional exercise. 07/23/2024 Tobacco dependence (ICD-10 - F17.200) She continues to smoke cigarettes. She is trying very hard to stop. She is smoking 3 a day and is well aware of the health consequences of continued smoking. She has been made aware of the smoke [facility] program and examined of the smoking cessation programs available at all of the local hospitals. 10/26/2023 Tobacco dependence (ICD-10 - F17.200) She continues to smoke cigarettes. She is trying very hard to stop. She is smoking 7 or 8 a day and is well aware of the health consequences of continued smoking. She has been made aware of the smoke [facility] program and examined of the smoking cessation programs available at all of the local hospitals. 10/28/2023 Cough (ICD-10 - R05) Her recent cough has resolved. 01/24/2024 Tobacco dependence (ICD-10 - F17.200) She continues to smoke cigarettes. She is trying very hard to stop. She is smoking 7 or 8 a day and is well aware of the health consequences of continued smoking. She has been made aware of the smoke [facility] program and examined of the smoking cessation programs available at all of the local hospitals. 03/08/2024 Depression (ICD-10 - F32.9) Her depression is minimal today and she is conducting all of the activities of daily living without impairment. This process is well controlled. 07/23/2024 Depression (ICD-10 - F32.9) She denies feeling depressed. She has been conducting all of the activities of daily life without impairment. 10/26/2023 Unspecified asthma, uncomplicated (ICD-10 - J45.909) She is using her inhalers correctly. She has a viral syndrome with mild inspiratory wheezing. She will not need steroids. 10/28/2023 Hematochezia (ICD-10 - K92.1) She has had no further rectal bleeding. She has had no further abdominal pain. The episodes seem self-limited. She has any additional bleeding she will have a rectal examination and a sigmoidoscopy. 01/24/2024 Depression (ICD-10 - F32.9) Her depression is minimal today and she is conducting all of the activities of daily living without impairment. This process is well controlled. 03/08/2024 Unspecified asthma, uncomplicated (ICD-10 - J45.909) She reports shortness of breath and some wheezing. She has been given 7 days of prednisone. 07/23/2024 Osteopenia (ICD-10 - M85.80) She continues her regimen of calcium carbonate and vitamin D. 10/26/2023 Cough (ICD-10 - R05) Since her l ast visit. She may have a viral syndrome. He was advised to reduce her smoking. She will use Mucinex DM 10/28/2023 Depression (ICD-10 - F32.9) Her depression is minimal today and she is conducting all of the activities of daily living without impairment. This process is well controlled. 03/08/2024 Acute bronchitis due to other specified organisms (ICD-10 - J20.8) I have given her a course of prednisone and azithromycin. 10/28/2023 Tobacco dependence (ICD-10 - F17.200) She continues to smoke cigarettes. She is trying very hard to stop. She is smoking 7 or 8 a day and is well aware of the health consequences of continued smoking. She has been made aware of the smoke [place] program and examined of the smoking cessation programs available at all of the local hospitals. 10/28/2023 Agoraphobia (ICD-10 - F40.00) This problem has been well controlled in recent years and is not a problem for her today. 10/28/2023 Panic attacks (ICD-10 - F41.0) She has had no panic attacks recently and seemed quite calm today. This problem seems to be well controlled. 10/28/2023 Psoriasis (ICD-10 - L40.9) Her psoriasis was minimal today. She has patches of erythema on the lower extremities, but they are not pruritic and do not affect her ability in the activities of daily living. Plan Of Treatment Pending Test Test Name Order Date PROFILE, FASTING (COMPREHENSIVE METABOLI C) 07/05/2017 PROFILE, FASTING (COMPREHENSIVE METABOLI C) 01/24/2024 PROFILE, FASTING (COMPREHENSIVE METABOLI C) 03/01/2017 PROFILE, FASTING (COMPREHENSIVE METABOLI C) 10/28/2023 PROFILE, FASTING (COMPREHENSIVE METABOLI C) 07/23/2024 LIPID PANEL 07/05/2017 LIPID PANEL 03/01/2017 CBC w DIFF 07/05/2017 CBC w DIFF 10/28/2023 CBC w DIFF 03/01/2017 CBC w DIFF 07/23/2024 BONE DENSITY DEXA 07/23/2024 CBC WITH AUTO DIFF 01/24/2024 Lipid Panel 10/28/2023 Lipid Panel 07/23/2024 Lipid Panel 01/24/2024 Next Appt Details Provider Name:Cliff Painting, 01/28/2025 04:00:00 PM, [address] [place] [address] [address], [place], [address], Insurance Providers Payer Name Payer Address Payer Phone Subscriber Number Group Number Insured Name Patient Relationship to Insured Coverage Start Date Coverage End Date [facility] [address] [place], [place] [id number] [phone] [id number] Mendy Martino Self - patient is the insured Medical (General) History Medical History History ICD Code migraine headaches [id number] post menopause depression agoraphobia, panic attacks psoriasis, of the elbows trichotillomania tobacco dependence djd of neck last mammogram April 2013 Surgical History Surgery Date(Month/Year) No history tendon repair left antecubital fossa Hospitalization History Reason Date(Month/Year) No history
--- OUTSIDE RECORDS SUMMARY | 2024-07-31 11:34 | XMS_ITS ---
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] User Light cigarett e smoker ((1-9 cigs/day) Vital Signs Temperature 97.6 degrees Fahrenheit 01/24/20 24 Blood pressure systolic 102 mm Hg 01/24/20 24 Blood pressure diastolic 91 mm Hg 024 Heart Rate 72 /min 01/24/2024 Height 64 in 01/24/2024 Weight 162 lbs 01/24/2024 BMI 27.8 kg/m2 01/24/2024 Encounters Encounter Location Date Provider Diagnosis Cliff Painting III, MD [address] [place] [address] [address] [place] [id number] 01/24/2024 Cliff Painting Overweight E66.3 ; Unspecified asthma, uncomplicated J45.909 ; Tobacco dependence F17.200 and Depression F32.9 Assessments Encounter Date Diagnosis (ICD Code) Assessment Notes Treat ment Notes Treatment Clinical Notes 01/24/2024 Overweight (ICD-10 - E66.3) We have [...] She is breathing room air comfortably. 01/24/2024 Tobacco dependence (ICD-10 - F17.200) She continues to smoke cigarettes. She is trying very hard to stop. She is smoking 7 or 8 a day and is well aware of the health consequences of continued smoking. She has been made aware of the smoke [place] program and examined of the smoking cessation programs available at all of the local hospitals. 01/24/2024 Depression (ICD-10 - F32.9) Her depression is minimal today and she is conducting all of the activities of daily living without impairment. This process is well controlled. Plan Of Treatment Medication Medication Name Sig Start Date Stop Date Notes Sarah Ellipta 200-62.5-25 MCG/ACT 1 puff Inhalation Once a day Albuterol Sulfate HFA 108 (9 0 Base) MCG/ACT 1 puff as needed Inhalation every 4 hrs 03/13/2020 Pending Test Test Name Order Date PROFILE, FASTING (COMPREHENSIVE METABOLI C) 01/24/2024 CBC WITH AUTO DIFF 01/24/2024 Lipid Panel 01/24/2024 Next Appt Details Follow Up: 6 Months, In six months, Reason: OV, Routine follow-up Provider Name:Cliff Painting, 01/28/2025 04:00:00 PM, [address] [place] [address] [address], [place], [id number], Progress Notes * Mendy COREYDOB:1960 (63 yo F)Acc No.[id number]:01/24/2024 Progress Notes Patient:?Mendy COREY Provider:?Cliff Painting MD :1960???Age:63 Y???Sex:Female D ate:01/24/2024 Address:[address] [place], [place] [address] [place], [id number] Subjective: * Chief Complaints: * ???Annual Exam above the [address] * HPI: ???Depression Screening:?PHQ-9?Little interest or pleasure in doing things?Not at all ?Feeling down, depressed, or hopeless?Not at all ?Trouble falling or staying asleep, or sleeping too much?Not at all ?Feeling tired or having little energy?Not at all ?Poor appetite or overeating?Not at all ?Feeling bad about yourself or that you are a failure, or have let yourself or your family down?Not at all ?Trouble concentrating on things, such as reading the newspaper or watching television?Not at all ?Moving or speaking so slowly that other people could have noticed; or the opposite, being so fidgety or restless that you have been moving around a lot more than usual?Not at all ?Thoughts that you would be better off or of hurting yourself in some way?Not at all ?Total Score?0 ???COVID-19 Screening:?Questions?Have you experienced fever, chills, cough, sore throat, shortness of breath, difficulty breathing, muscle aches, loss of taste or smell??No ?Have you been exposed to the virus within the last 10 days??No ?Have you travelled internationally in the last 10 days??No ?Have you been exposed to COVID-19 in the past??Yes ???SDOH Questions:?SDOH Questions?In the past year have you been worried about losing your housing??No ?In the past year have you or any family members you live with been unable to get any of the following when it was really needed? Check all that apply:?None ???:? The patient, a 63-year-old female, presented for her annual exam. She had been experiencing abdominal pain and rectal bleeding, which have since resolved. She reported feeling good overall, with a good appetite. She had a CAT scan of her lung, which showed a few unchanged nodules of 3mm and 5mm, minimal calcification in her coronary artery, a normal thyroid gland, and a small cyst in her liver. Her mammogram was negative. She has been experiencing some shortness of breath with exertion and some coughing. She has been smoking, but has cut down to about four or five cigarettes a day. She also reported some congestion, which she attributes to her lung problem. * ROS:?General/Constitutional:?pain?only normal aches and pains.?Chills?denies.?Fatigue?admits.?Fever?denies.?Allergy/Immunology:?Admits?Congestion.?ENT:?Decreased hearing?denies.?Respiratory:?Cough?non-productive.?Cardiovascular:?Chest pain with exertion?denies.?Dyspnea on exertion?denies.?Shortness of breath?denies.?Gastrointestinal:?Constipation?denies.?Decreased appetite?denies.?Diarrhea?denies.?Heartburn?denies.?Nausea?denies.?Rectal bleeding?denies.?Vomiting?denies.?Hematology:?bruising?denies.?petechiae?denies.?Swollen glands?none have been noted.?Genitourinary:?Frequent urination?at night.?Musculoskeletal:?Muscle aches?denies.?Painful joints?denies.?Sciatica?denies.?Weakness?denies.?Skin:?Itching?denies.?Rash?denies.?Skin lesion(s)?denies.?Neurologic:?Difficulty speaking?denies.?Dizziness?denies.?Headache?denies.?Low back pain?denies.?Psychiatric:?Depressed mood?denies.? * Medical History:? * Surgical History:?left antec ubital fossa tendon repair No history * Hospitalization/Major Diagno stic Procedure:?No history * Family History:?Father: dece ased 60 yrs, respiratory faliure.?Mother: 70 yrs, respiratory faliure.?Siblings: alive.?1 brother(s) , 1 sister(s) - healthy. 1 son(s) , 1 daughter(s) . .? A brother has asthma. * Social History:?Tobacco Use:?Tobacco Use/Smoking?Patient is a?current smoker ?How often do you smoke cigarettes??every day ?How many cigarettes a day do you smoke??6-10 ?How soon after you wake up do you smoke your first cigarette??31-60 minutes ?Are you interested in quitting??Not ready to quit ?Additional Findings: Tobacco User?Light cigarette smoker ((1-9 cigs/day) ???She has been to Miguel for 30 years and has one child. She works at [employer] and has no toxic exposures. She was born in [place], [place]. * Medications:?TakingTrelegy E llipta 200-62.5-25 MCG/ACT Aerosol Powder Breath Activated 1 puff Inhalation Once a day Albuterol Sulfate HFA 108 (90 Base) MCG/ACT Aerosol Solution 1 puff as needed Inhalation every 4 hrs Medication List reviewed and reconciled with the patientTaking Trelegy Ellipta 200-62.5-25 MCG/ACT Aerosol Powder Breath Activated 1 puff Inhalation Once a day Taking Albuterol Sulfate HFA 108 (90 Base) MCG/ACT Aerosol Solution 1 puff as needed Inhalation every 4 hrs Medication List reviewed and reconciled with the patient * Allergies:?Demerolno[Allergi es Verified] Objective: * Vitals:?Ht: 64, Wt: 162, BMI :27.8, BP: 102/91, HR: 72, Temp: 97.6, Wt-k.48. * ???Past Orders: ???Lab:Complete Blood Count Auto Diff (Order Date - 10/26/2023) (Collection Date & Time - 10/26/2023 11:26 AM) ? Value Reference Range ?White Blood Count 6.7 4. 8-10.8 - X10*3/uL ?Red Blood Count 4.51 4.20 -5.50 - X10*6/uL ?Hemoglobin 13.6 12.0-16.0 - g/dl ?Hematocrit 40.9 37.0-47.0 - % ?Mean Corpuscular Volume 90.7 80.0-98.0 - fL ?Mean Corpuscular Hemoglobin 30.2 27.0-33.0 - pg ?Mean Corpuscular HGB Conc 33.3 31.0-35.0 - g/dl ?Red Cell Distribution Width 12.8 11.0-16.0 - % ?Platelet Count 251 160-4 00 - X10*3/uL ?Mean Platelet Volume 9.4 9.4-12.3 - fL ?Neutrophils Percent Auto 60.4 45-73 - % ?Imm Gran Pct Auto 0.3 0. 0-0.4 - % ?Lymphocytes Percent Auto 28.7 20-40 - % ?Monocytes Percent Auto 7.8 2-11 - % ?Eosinophils Percent Auto 1.8 0-4 - % ?Basophils Percent Auto 1.0 0-2 - % ?NRBC Pct Auto 0.0 0.0-0. 2 - /100WBC ?Neutrophils Absolute Auto 4.1 2.0-8.3 - x10*3/uL ?Imm Gran Abs Auto 0.02 0. 00-0.03 - X10*3/uL ?Lymphocytes Absolute Auto 1.9 1.2-4.9 - X10*3/uL ?Monocytes Absolute Auto 0.5 0.1-1.2 - X10*3/uL ?Eosinophils Absolute Auto 0.1 0.0-0.4 - X10*3/uL ?Basophils Absolute Auto 0.1 0.0-0.2 - X10*3/uL ?NRBC Abs Auto 0.000 0.0-0. 012 - X10*3/uL ???Lab:Comprehensive . Niels libia (Order Date - 10/26/2023) (Collection Date & Time - 10/26/2023 11:26 AM) ? Value Reference Range ?Sodium 138 135-145 - mmo l/L ?Bilirubin Total 0.4 0.0- 1.0 - mg/dL ?Aspartate Amino Transferase 14 5-31 - U/L ?Alanine Aminotransferase 13 0-31 - U/L ?Total Protein 7.3 6.5-8. 0 - g/dL ?Albumin Level 4.1 3.5-5. 0 - g/dL ?Alkaline Phosphatase 83 39-117 - U/L ?Potassium 3.8 3.3-5.1 - mmol/L ?Chloride 102 96-108 - mm ol/L ?Carbon Dioxide 26 22-29 - mmol/L ?Anion Gap 14 12-20 - ?Blood Urea Nitrogen 18 H 9-16 - mg/dL ?Creatinine 0.80 0.5-1.4 - mg/dL ?Estimated Glomerular Filt Rate > 60 - ?Glucose Random 101 60-11 5 - mg/dL ?Calcium 9.5 8.4-10.2 - m g/dL Imaging:MM tomosynthesis scr eening BI * Performed Date 12/03/2023 11/27/2022 09:00 AM 08:50 AM Order Date 12/03/2023 11/27/2022 ???Imaging:CT lung screening (Order Date - 10/31/2023) (Performed Date - 10/31/2023) * Examination: ???General Examination: ?GENERAL APPEARANCE:?pleasant, well nourished, well developed, in no acute distress, calm and relaxed, overweight, woman.?HEAD:?atraumatic, normocephalic.?EYES:?eomi, perrla, anicteric, conjugate.?EARS:?normal.?NOSE:?septum intact.?ORAL CAVITY:?normal, unremarkable.?NECK/THYROID:?no jugular venous distention, no carotid bruit, thyroid normal.?LYMPH NODES:?no enlarged lymph nodes,spleen normal.?SKIN:?no suspicious lesions, anicteric.?HEART:?no clicks, gallops, murmurs, or rubs, regular rhythm, S1, S2 normal, no s3, or vascular bruits.?LUNGS:?, diminished breath sounds throughout, good air movement, no wheezes, rales, rhonchi.?BREASTS:??no masses palpable bilaterally.?ABDOMEN:?bowel sounds normal, no ascites, no organomegaly, no mass.?RECTAL EXAM:?not examined.?MUSCULOSKELETAL:?extremities unremarkable, no clubbing, cyanosis or edema.?PERIPHERAL PULSES:?normal.?NEUROLOGIC:?alert and oriented, cranial nerves 2-12 grossly intact, deep tendon reflexes 2+ symmetrical, motor strength normal upper and lower extremities, sensory exam intact.?PSYCH:?alert, oriented.? Assessment: * Assessment: 1.?Unspecified asthma, uncom plicated - J45.909 (Primary)???Notes :There was no wheezing today. She does not use her inhaler recently. She is breathing room air comfortably.???2.?Overweight - E66.3???Notes :We have discussed her diet and her nutrition. We reviewed her weight loss strategy. We made a plan to lose weight at a rate of one half of a pound per week through a diet restricted in fat calories and sodium.???3.?Tobacco dependence - F17.200???Notes :She continues to smoke cigarettes. She is trying very hard to stop. She is smoking 7 or 8 a day and is well aware of the health consequences of continued smoking. She has been made aware of the smoke [place] program and examined of the smoking cessation programs available at all of the local hospitals.???4.?Depression - F32.9???Notes :Her depression is minimal today and she is conducting all of the activities of daily living without impairment. This process is well controlled.??? Plan: * Treatment: * Procedure Codes:? * Preventive Medicine:? ??Counseling:?Care goal follow-up plan:?Counseling for abnormal BMI given?Yes ?Above Normal BMI Follow-up?Dietary management education, guidance, and counseling, Dietary needs education, Exercise promotion: strength training, Exercise promotion: stretching, Feeding regime, Giving encouragement to exercise, Lifestyle education regarding diet, Nutrition / feeding management, Nutrition therapy, Prescribed activity/exercise education, Prescribed diet education, Prescribed dietary intake, Special diet education, Weight monitoring , Intervention, Order not done: Medical or Other reason not done ?Smoking/Tobacco Use?Patient counseled on the dangers of tobacco use and urged to quit.?01/24/2024 * Follow Up:?6 Months, In six months (Reason: OV, Routine follow-up) * Images: * Sign off status: Completed true * Provider:?Cliff Painting MD Date:?01/12 Generated for Connie brewster/Alexia/eTransmitting on:?07/31/2024 11:34 AM EDT History and Physical Notes * HPI (History of Present Illness) Category Sub-Category Detail Notes Depression Screening PHQ-9 Little inte rest or pleasure in doing things: Not at all Feeling down, depressed, or hopeless: No t at all Trouble falling or staying asleep, or sl eeping too much: Not at all Feeling tired or having little energy: N ot at all Poor appetite or overeating: Not at all Feeling bad about yourself o r that you are a failure, or have let yourself or your family down: Not at all Trouble concentrating on thi ngs, such as reading the newspaper or watching television: Not at all Moving or speaking so slowly that other people could have noticed; or the opposite, being so fidgety or restless that you have been moving around a lot more than usual: Not at all Thoughts that you would be b richy off or of hurting yourself in some way: Not at all Total Score: 0 COVID-19 Screening Questions Have you had any new onset fever, chills, cough, congestion, sore throat, shortness of breath, muscle aches?: No Have you been exposed to the virus withi n the last 10 days?: No Have you travelled internationally in [facility] last 10 days?: No Have you been exposed to COVID-19 in the past?: Yes SDOH Questions SDOH Questions In the past year have you been worried about losing your housing?: No In the past year have you or any family members you live with been unable to get any of the following when it was really needed? Check all that apply:: None Examination Category Sub-Category Detail Notes General Examination GENERAL APPEARANCE: pleasant , well nourished, well developed, in no acute distress, calm and relaxed, overweight, woman HEAD: atraumatic, normocep halic EYES: eomi, perrla, anicte ramirez, conjugate EARS: normal NOSE: septum intact NECK/THYROID: no jugular venous di stention, no carotid bruit, thyroid normal HEART: no clicks, gallops, murmurs, or rubs, regular rhythm, S1, S2 normal, no s3, or vascular bruits LUNGS: , diminished breath sounds throughout, good air movement, no wheezes, rales, rhonchi ABDOMEN: bowel sounds normal, no ascites, no organomegaly, no mass NEUROLOGIC: alert and oriented, cranial nerves 2-12 grossly intact, deep tendon reflexes 2+ symmetrical, motor strength normal upper and lower extremities, sensory exam intact SKIN: no suspicious lesion s, anicteric PERIPHERAL PULSES: normal BREASTS: no masses palpable b ilaterally MUSCULOSKELETAL: extremities unremark able, no clubbing, cyanosis or edema LYMPH NODES: no enlarged lymph no grace,spleen normal RECTAL EXAM: not examined PSYCH: alert, oriented ORAL CAVITY: normal, unremarkable
--- OUTSIDE RECORDS SUMMARY | 2024-07-31 11:34 | XMS_ITS ---
Author Organization Cliff Painting III, MD Address [address] [place] [address] Care Team Providers Care Hospital Attendant Name Role Phone Cliff Painting Primary Care Provider Allergies Allergen (clinical drug ingredient) Drug/Non Drug Allergy documented on EMR Reaction Allergy Type Onset Date Status No Known Food Allergy Unknown Drug Allergy Active meperidine Demerol Unknown Drug Allergy Active REASON FOR VISIT Depression, Tobacco dependence, Psoriasis, Asthma Medications Medication SIG (Take, Route, Frequency, Duration) Notes Start Date End Date Status Albuterol Sulfate HFA 108 (90 Base) MCG/ACT 1 puff as needed Inhalation every 4 hrs 03/13/2020 Active Trelegy Ellipta 200-62.5-25 MCG/ACT 1 puff Inhalation Once a day Active buPROPion HCl ER (XL) 150 MG Oral Active Social History Tobacco Use: Social History [...] User Light cigarett e smoker ((1-9 cigs/day) Problems Problem Type SNOMED Code ICD Code Onset Dates Problem Status W/U Status Risk Notes Problem Osteopenia ([id number]) Osteopenia (M85.80) Active confirmed She continues her regimen of calcium carbonate and vitamin D. Vital Signs Temperature 98.2 degrees Fahrenheit 07/24/19 25 Blood pressure systolic 98 mm Hg 07/24/19 25 Blood pressure diastolic 72 mm Hg 025 Heart Rate 77 /min 07/23/2024 Height 64 in 07/23/2024 Weight 167 lbs 07/23/2024 BMI 28.66 kg/m2 07/23/2024 Encounters Encounter Location Date Provider Diagnosis Cliff Painting III, MD [address] [place] [address] [place] [address] 07/23/2024 Cliff Painting Overweight E66.3 ; Tobacco dependence F17.200 ; Depression F32.9 and Osteopenia M85.80 Assessments Encounter Date Diagnosis (ICD Code) Assessment Notes Treatment Notes Treatment Clinical Notes 07/23/2024 Overweight (ICD-10 - E66.3) She has [...] at all of the local hospitals. 07/23/2024 Depression (ICD-10 - F32.9) She denies feeling depressed. She has been conducting all of the activities of daily life without impairment. 07/23/2024 Osteopenia (ICD-10 - M85.80) She continues her regimen of calcium carbonate and vitamin D. Plan Of Treatment Medication Medication Name Sig Start Date Stop Date Notes Albuterol Sulfate HFA 108 (9 0 Base) MCG/ACT 1 puff as needed Inhalation every 4 hrs 03/13/2020 Trelegy Ellipta 200-62.5-25 MCG/ACT 1 puff Inhalation Once a day buPROPion HCl ER (XL) 150 MG Oral Pending Test Test Name Order Date PROFILE, FASTING (COMPREHENSIVE METABOLI C) 07/23/2024 CBC w DIFF 07/23/2024 BONE DENSITY DEXA 07/23/2024 Lipid Panel 07/23/2024 Next Appt Details Follow Up: As Scheduled, Genie son: Annual Exam Provider Name:Cliff Garima, 01/28/2025 04:00:00 PM, [address] [place] [address] [place] [place], [place], [address], Progress Notes * Mendy COREYDOB:1960 (64 yo F)Acc No.[id number]:07/23/2024 Progress Notes Patient:?Mendy COREY Provider:?Cliff Painting MD :1960???Age:64 Y???Sex:Female D ate:07/23/2024 Address:[address] [place], [place] [id number] Subjective: * Chief Complaints: * ???DepressionTobacco depende ncePsoriasisAsthma * HPI: ???COVID-19 Screening:?She returns to the office for a scheduled visit to manage her medical issues.? He has reduced her cigarette consumption to 3 cigarettes a day.? She has gained 5 pounds since her last visit.? Her depression has resolved.? She does not have any pollen allergies at this time.? Her asthma is in remission.? She has no new complaints and feels generally well. ?Questions?Have you had any new onset fever, chills, cough, congestion, sore throat, shortness of breath, muscle aches??No * ROS:?General/Constitutional:?pain?only normal aches and pains.?Chills?denies.?Fatigue?admits.?Fever?denies.?ENT:?Decreased hearing?denies.?Respiratory:?Cough?denies.?Cardiovascular:?Chest pain with exertion?denies.?Dyspnea on exertion?with mild activity.?Shortness of breath?with exertion.?Gastrointestinal:?Constipation?occasional.?Decreased appetite?denies.?Diarrhea?denies.?Heartburn?denies.?Nausea?denies.?Rectal bleeding?denies.?Vomiting?denies.?Hematology:?bruising?denies.?petechiae?denies.?Swollen glands?none have been noted.?Genitourinary:?Frequent urination?at [...] and has one child. She works at [employer] and has no toxic exposures. She was born in [place], [place]. * Medications:?TakingTrelegy E llipta 200-62.5-25 MCG/ACT Aerosol Powder Breath Activated 1 puff Inhalation Once a day Albuterol Sulfate HFA 108 (90 Base) MCG/ACT Aerosol Solution 1 puff as needed Inhalation every 4 hrs buPROPion HCl ER (XL) 150 MG Tablet Extended Release 24 Hour Oral Medication List reviewed and reconciled with the patientTaking Trelegy Ellipta 200-62.5-25 MCG/ACT Aerosol Powder Breath Activated 1 puff Inhalation Once a day Taking Albuterol Sulfate HFA 108 (90 Base) MCG/ACT Aerosol Solution 1 puff as needed Inhalation every 4 hrs Taking buPROPion HCl ER (XL) 150 MG Tablet Extended Release 24 Hour Oral Medication List reviewed and reconciled with the patient * Allergies:?DemerolNo Known F susy Allergyno[Allergies Verified] Objective: * Vitals:?Ht: 64, Wt:167, BMI: 28.66, BP:98/72, HR:77, Temp:98.2, Wt-k.75. * Examination: ???General Examination: ?GENERAL APPEARANCE:?pleasant, well nourished, well developed, in no acute distress, calm and relaxed, overweight, woman.?HEAD:?atraumatic, normocephalic.?EYES:?eomi, perrla, anicteric, conjugate.?EARS:?normal.?NOSE:?septum intact.?ORAL CAVITY:?normal, unremarkable.?NECK/THYROID:?no jugular venous distention, no carotid bruit, thyroid normal.?LYMPH NODES:?no enlarged lymph nodes,spleen normal.?SKIN:?no suspicious lesions, anicteric.?HEART:?no clicks, gallops, murmurs, or rubs, regular rhythm, S1, S2 normal, no s3, or vascular bruits.?LUNGS:?clear to auscultation .?BREASTS:?Not examined.?ABDOMEN:?bowel sounds normal, no ascites, no organomegaly, no mass, overweight.?RECTAL EXAM:?not examined.?MUSCULOSKELETAL:?extremities unremarkable, no clubbing, cyanosis or edema.?PERIPHERAL PULSES:?normal.?NEUROLOGIC:?alert and oriented, cranial nerves 2-12 grossly intact, deep tendon reflexes 2+ symmetrical, motor strength normal upper and lower extremities, sensory exam intact.?PSYCH:?alert, oriented.? Assessment: * Assessment: 1.?Tobacco dependence - F17. 200 (Primary)???Notes :She continues to smoke cigarettes. She is trying very hard to stop. She is smoking 3 a day and is well aware of the health consequences of continued smoking. She has been made aware of the smoke [place] program and examined of the smoking cessation programs available at all of the local [facility].???2.?Overweight - E66.3???Notes :She has gained 5 pounds over the winter.? We discussed her diet and nutrition.? We made a plan to lose weight at a rate of one half of a pound per week through a diet restricted in calories combined with exertional exercise.???3.?Depression - F32.9???Notes :She denies feeling depressed.? She has been conducting all of the activities of daily life without impairment.???4.?Osteopenia - M85.80???Notes :She continues her regimen of calcium carbonate and vitamin D.??? Plan: * Treatment: 2.?Depression?LAB: PROFILE, FASTING (COMPREHENSIVE METABOLIC) ?LAB: CBC w DIFF ?LAB: Lipid Panel 3.?Osteopenia?Imaging: BONE DENSITY DEXA * Procedure Codes:? * Preventive Medicine:? ??Counseling:?Care goal follow-up plan:?Counseling for abnormal BMI given?Yes ?Above Normal BMI Follow-up?Dietary management education, guidance, and counseling, Dietary needs education ?Smoking/Tobacco Use?Patient counseled on the dangers of tobacco use and urged to quit.?07/23/2024 ?Patient Lifestyle Goals?Patient wants to quit ?Treatment Goals?Set a quit date, Cut down by 1 cigarette a week ?Barriers?Stress, Social smoker ?Self-Management Plan?Make a plan to cut down number of cigarettes over time and set a date to work towards quitting * Follow Up:?As Scheduled (Genie son: Annual Exam) * Images: * Sign off status: Completed true * Provider:?Cliff Painting MD Date:?07/12 Generated for Connie brewster/Alexia/eTransmitting on:?07/31/2024 11:34 AM EDT History and Physical Notes * HPI (History of Present Illness) Category Sub-Category Detail Notes COVID-19 Screening Questions Have you had any new onset fever, chills, cough, congestion, sore throat, shortness of breath, muscle aches?: No Examination Category Sub-Category Detail Notes General Examination [...] normal, no s3, or vascular bruits LUNGS: clear to auscultatio n ABDOMEN: bowel sounds normal, no ascites, no organomegaly, no mass, overweight NEUROLOGIC: alert and oriented, cranial nerves 2-12 grossly intact, deep tendon reflexes 2+ symmetrical, motor strength normal upper and lower extremities, sensory exam intact SKIN: no suspicious lesion s, anicteric PERIPHERAL PULSES: normal BREASTS: Not examined MUSCULOSKELETAL: extremities unremark able, no clubbing, cyanosis or edema LYMPH NODES: no enlarged lymph no grace,spleen normal RECTAL EXAM: not examined PSYCH: alert, oriented ORAL CAVITY: normal, unremarkable
--- OUTSIDE RECORDS SUMMARY | 2024-07-31 11:35 | XMS_ITS ---
Author Organization Cliff Painting III, MD Address [address] [place] [address] Care Team Providers Care Cost Recovery Technician Name Role Phone Cliff Painting Primary Care Provider Allergies Allergen (clinical drug ingredient) Drug/Non Drug Allergy documented on EMR Reaction Allergy Type Onset Date Status meperidine Demerol Unknown Drug Allergy Active REASON FOR VISIT Acute bacterial bronchitis, Tobacco dependence, Asthma, History of depression Medications Medication SIG (Take, Route, Frequency, Duration) Notes Start Date End Date Status Trelegy Ellipta 200-62.5-25 MCG/ACT 1 puff Inhalation Once a day Active Doxycycline Hyclate 100 MG 1 tablet Oral ly twice a day for 107 days 03/08/2024 06/23/2024 Active Albuterol Sulfate HFA 108 (90 Base) MCG/ACT 1 puff as needed Inhalation every 4 hrs 03/13/2020 Active predniSONE 20 MG 1 tablet Orally Once a day for 7 days 03/08/2024 03/15/2024 Active Social History Tobacco Use: Social History [...] cigarett e smoker ((1-9 cigs/day) Vital Signs Height 64 in 03/08/2024 Weight 162 lbs 03/08/2024 BMI 27.8 kg/m2 03/08/2024 Encounters Encounter Location Date Provider Diagnosis Cliff Painting III, MD [address] [place] [address] [place] [address] 03/08/2024 Cliff Painting Overweight E66.3 ; Tobacco dependence F17.200 ; Depression F32.9 ; Unspecified asthma, uncomplicated J45.909 and Acute bronchitis due to other specified organisms J20.8 Assessments Encounter Date Diagnosis (ICD Code) Assessment Notes Treat ment Notes Treatment Clinical Notes 03/08/2024 Overweight (ICD-10 - E66.3) She weighs [...] has been given 7 days of prednisone. 03/08/2024 Acute bronchitis due to other specified organisms (ICD-10 - J20.8) I have given her a course of prednisone and azithromycin. Plan Of Treatment Medication Medication Name Sig Start Date Stop Date Notes Trelemyron Ellipta 200-62.5-25 MCG/ACT 1 puff Inhalation Once a day Doxycycline Hyclate 100 MG 1 tablet Oral ly twice a day for 107 days 03/08/2024 06/23/2024 Albuterol Sulfate HFA 108 (9 0 Base) MCG/ACT 1 puff as needed Inhalation every 4 hrs 03/13/2020 predniSONE 20 MG 1 tablet Orally Once a day for 7 days 03/08/2024 03/15/2024 Next Appt Details Follow Up: As Scheduled, Genie son: OV Provider Name:Cliff Painting, 01/28/2025 04:00:00 PM, [address] [place] [address] [address], [address], [place], [address], Progress Notes * Mendy COREYDOB:1960 (63 yo F)Acc No.[id number]:03/08/2024 Patient:?Mendy COREY Provider:?Cliff Painting MD :1960???Age:63 Y???Sex:Female D ate:03/08/2024 Address:[address] [place] [address] [place] [id number] Subjective: * Chief Complaints: * ???Acute bacterial bronchiti sTobacco dependenceAsthmaHistory of depression * HPI: ???:?Telehealth?Location of provider rendering services:?{...} [address] [place] [address] [address] [facility] [address] ?Location of patient:?address listed in demographics for today's visit ?Patient identification confirmed using:?Name, ?Telehealth method:?Telephone only. Patient not visible to care provider. ?Consent:?Patient verbally consented to treatment, Patient verbally consented to billing insurance company, Patient informed of any privacy concerns related to method of visit ?Total time spent with patient (mins)?15 ? The patient, a 63-year-old female, has been experiencing symptoms of bronchitis for the past week. The symptoms seem to be intermittent, as the patient is able to perform daily activities such as shopping. The severity of the symptoms is not explicitly mentioned, but the patient acknowledges that she should not have waited to seek medical attention. The patient has been using inhalers to manage her symptoms, which suggests that the symptoms may include difficulty breathing. No other associated signs or symptoms are mentioned in the transcript. * ROS:?General/Constitutional:?pain?only normal aches and pains.?Chills?denies.?Fatigue?admits.?Fever?denies.?ENT:?Decreased hearing?denies.?Respiratory:?Cough?worse at night.?Cardiovascular:?Chest pain with exertion?denies.?Dyspnea on exertion?denies.?Shortness of breath?with exertion.?Gastrointestinal:?Constipation?occasional.?Decreased appetite?that is not associated with weight loss.?Diarrhea?denies.?Heartburn?denies.?Nausea?denies.?Rectal bleeding?denies.?Vomiting?denies.?Hematology:?bruising?denies.?petechiae?denies.?Swollen glands?none have been noted.?Genitourinary:?Frequent urination?denies.?Musculoskeletal:?Muscle aches?denies.?Painful joints?denies.?Sciatica?denies.?Weakness?that is generalized.?Skin:?Itching?denies.?Rash?denies.?Skin lesion(s)?denies.?Neurologic:?Difficulty speaking?denies.?Dizziness?denies.?Headache?denies.?Low back pain?denies.?Psychiatric:?Depressed mood?denies.? * Medical [...] and has one child. She works at [employer] and has no toxic exposures. She was born in [place], [place]. * Medications:?TakingTrelegy E llipta 200-62.5-25 MCG/ACT [...] * Vitals:?Ht: 64, Wt: 162, BMI :27.8, Wt-k.48. Assessment: * Assessment: 1.?Tobacco dependence - F17. 200 (Primary)???Notes :She continues to smoke cigarettes. She is trying very hard to stop. She is smoking 7 or 8 a day and is well aware of the health consequences of continued smoking. She has been made aware of the smoke [place] program and examined of the smoking cessation programs available at all of the local hospitals.???2.?Overweight - E66.3???Notes :She weighs 162 pounds with a body mass index of 27. We have discussed her diet and her nutrition. We reviewed her weight loss strategy. We made a plan to lose weight at a rate of one half of a pound per week through a diet restricted in fat calories and sodium.???3.?Depression - F32.9???Notes :Her depression is minimal today and she is conducting all of the activities of daily living without impairment. This process is well controlled.???4.?Unspecified asthma, uncomplicated - J45.909???Notes :She reports shortness of breath and some wheezing.? She has been given 7 days of prednisone.???5.?Acute bronchitis due to other specified organisms - J20.8???Notes :I have given her a course of prednisone and azithromycin.??? Plan: * Treatment: * Procedure Codes:?11719 PHONE E/M BY PHYS 11-20 MIN * Preventive Medicine:? ??Counseling:?Care goal follow-up plan:?Counseling [...] dangers of tobacco use and urged to quit.?03/08/2024 ?Patient Lifestyle Goals?Patient wants to quit ?Treatment Goals?Set a quit date, Cut down by 1 cigarette a week ?Barriers?Social smoker, Stress ?Self-Management Plan?Make a plan to cut down number of cigarettes over time and set a date to work towards quitting * Follow Up:?As Scheduled (Genie son: OV) * Images: * Sign off status: Completed true * Provider:?Cliff Painting MD Date:?02/12 Generated for Connie brewster/Alexia/Jimitting on:?07/31/2024 11:34 AM EDT History and Physical Notes * HPI (History of Present Illness) Category Sub-Category Detail Notes Telehealth Location of [facility] rendering services:: {...} [address] [place] [address] [place] [id number] Location of patient:: address listed in demographics for today's visit Patient identification confirmed using:: Name, Telehealth method:: Telephone only. Jaelyn ent not visible to care provider. Consent:: Patient verbally c onsented to treatment, Patient verbally consented to billing insurance company, Patient informed of any privacy concerns related to method of visit Total time spent with patient (mins): 15
[2024-07-31 14:11] LABS: MANUAL DIFF FLAG NO
[2024-07-31 14:16] LABS: Basophils Absolute Auto 0.1 X10*3/uL (0.0-0.2); Basophils Percent Auto 1.2 % (0-2); Eosinophils Absolute Auto 0.2 X10*3/uL (0.0-0.4); Eosinophils Percent Auto 2.6 % (0-4); Hematocrit 43.5 % (37.0-47.0); Hemoglobin 14.1 g/dl (12.0-16.0); Imm Gran Abs Auto 0.02 X10*3/uL (0.00-0.03); Imm Gran Pct Auto 0.3 % (0.0-0.4); Lymphocytes Absolute Auto 2.1 X10*3/uL (1.2-4.9); Lymphocytes Percent Auto 34.2 % (20-40); Mean Corpuscular HGB Conc 32.4 g/dl (31.0-35.0); Mean Corpuscular Hemoglobin 29.9 pg (27.0-33.0); Mean Corpuscular Volume 92.2 fL (80.0-98.0); Mean Platelet Volume 9.3 fL (9.4-12.3); Monocytes Absolute Auto 0.4 X10*3/uL (0.1-1.2); Monocytes Percent Auto 7.1 % (2-11); Neutrophils Absolute Auto 3.3 x10*3/uL (2.0-8.3); Neutrophils Percent Auto 54.6 % (45-73); Platelet Count 237 X10*3/uL (160-400); Red Blood Count 4.72 X10*6/uL (4.20-5.50); White Blood Count 6.1 X10*3/uL (4.8-10.8)
[2024-07-31 14:46] LABS: Alanine Aminotransferase 16 U/L (0-31); Albumin Level 4.1 g/dL (3.5-5.0); Alkaline Phosphatase 83 U/L (39-117); Anion Gap 9 (12-20); Aspartate Amino Transferase 22 U/L (5-31); Bilirubin Total 0.4 mg/dL (0.0-1.0); Blood Urea Nitrogen 17 mg/dL (9-16); Calcium 9.1 mg/dL (8.4-10.2); Carbon Dioxide 28 mmol/L (22-29); Chloride 107 mmol/L (96-108); Cholesterol 217 mg/dL (<200); Estimated Glomerular Filt Rate > 60; Glucose Fasting 93 mg/dL (60-99); HDL Cholesterol 43 mg/dL (>40); LDL Cholesterol Calculated 139 mg/dL (<100); Potassium 4.3 mmol/L (3.3-5.1); Sodium 140 mmol/L (135-145); Total Protein 7.1 g/dL (6.5-8.0); Triglycerides 177 mg/dL (<150)
== END 2024-07-31 10:22 | disposition home or self-care (01) ==
LOC: HO.10HDL 10:21
PROVIDERS: Visit Provider Internal Medicine Medical Oncology
DX: E66.3 Overweight (principal); F32.9 Major depressive disorder, single episode, unspecified
CPT/HCPCS: 36415; 80053; 80061; 85025

== ENCOUNTER 2024-08-30 08:07 | Outpatient (REF) | payer BC, SELFPAY ==
--- NOTE | ~2024-08-30 | MM_ITS ---
EXAMINATION: DXA BONE DENSITY AXIAL HISTORY: OSTEOPENIA TECHNIQUE: Propriet[employer]Direto Dual energy absorptiometry (DEXA) of the lumbar spine, total left hip, and femoral neck was performed. COMPARISON: There are no prior studies for comparison. FINDINGS: The bone mineral density of the lumbar spine is 0.700, corresponding to a T-score of -4.0, and a Z-score of -2.7. This is indicative of osteoporosis. The bone mineral density of the left total hip is 0.533, corresponding to a T-score of -3.8, and a Z-score of -2.8. This is indicative of osteoporosis. The bone mineral density of the left femoral neck is 0.604, corresponding to a T-score of -3.1, and a Z-score of -1.9. This is indicative of osteoporosis. MM/XR DEXA axial skeleton IMPRESSION: Based on bone mineral density, and according to World Health Organization (WHO) criteria, the diagnosis is consistent with osteoporosis. All bone density values are in grams per centimeter squared (g/cm2). Statistically, 68% of repeat scans fall within 1 SD (+/- 0.010 g/cm2 for AP spine L1-L4) and 1 SD (+/- 0.012 g/cm2 for femur total) FRAX is a trademark of the [employer] [facility] Met[employer] Disease, a World Health Organization (WHO) Collaborating Center. Electronically signed by: Cliff Johnson MD 09/03/2024 07:13 AM EDT
--- OUTSIDE RECORDS SUMMARY | 2024-08-30 08:14 | XMS_ITS | Patient Health Record ---
Author Organization Cliff Painting III, MD Address [address] [place] [address] Care Team Providers Care Medical Historian Name Role Phone Cliff Painting Primary Care Provider Allergies Allergen (clinical drug ingredient) Drug/Non Drug Allergy documented on EMR Reaction Allergy Type Onset Date Status No Known Food Allergy Unknown Drug Allergy Active meperidine Demerol Unknown Drug Allergy Active Results Component Value Reference Range Notes Complete Blood Count Auto Di ff Reviewed date:10/28/2023 03:34:34 PM Interpretation: Performing Lab:[facility], [address] [place] [address] Notes/Report: White Blood Count 6.7 4.8-10.8 X10*3/uL [...] Panel Reviewed date:10/28/2023 03:34:34 PM Interpretation: Performing Lab:[facility], [address] [place] [address] Notes/Report: Sodium 138 135-145 mmol/L Potassium 3.8 3.3-5.1 mmol/L Chloride 102 96-108 mmol/L Carbon Dioxide 26 22-29 mmol/L Anion Gap 14 12-20 Blood Urea Nitrogen 18 9-16 mg/dL Creatinine 0.80 0.5-1.4 mg/dL Estimated Glomerular Filt Rate > 60 NOTE: For -[place]ian individuals, multiply the result by 1.210. Chronic [...] date:12/26/2023 07:54:49 AM Interpretation: Performing Lab: Notes/Report: [address] [address] [address] Scan Report Signed Patient: Mendy Corey MR#: [id number] 936 : 1960 Acct:[id number] Age/Sex: 63 / F ADM Date: 10/31/23 Loc: HO.CT Attending Dr: Terra Ho PA-C Ordering Physician: Terra Ho PA-C Date of Service: 10/31/23 Procedure(s): CT lung screening Accession Number(s): [id number] cc: Cliff Painting MD; Terra Ho PA-C [...] for CT CHEST LOW DOSE CANCER SCREENING ([id number]) can be placed. Electronically signed by: Don Howard MD 12/02/2023 12:57 AM EDT RP Dictated By: Don Howard MD Signed By: <Electronically signed by Don Howard MD in OV> 12/02/23 0057 DD/ 0804 TD/TT: 10/31/23 0810 Fig Caprifier: [place] [id number] [address] Scan Report Signed Patient: Brandi Corey MR#: [id number] 936 : 1960 Acct:[id number] Age/Sex: 63 / F ADM Date: 10/31/23 Loc: HO.CT Attending Dr: Terra Ho PA-C Ordering Physician: Terra Ho PA-C Date of Service: 10/31/23 Procedure(s): CT danielle g screening Accession Number(s): [id number] cc: Cliff Painting MD; Terra Ho PA-C [...] for CT CHEST LOW DOSE CANCER SCREENING ([id number]) can be placed. Electronically hemant d by: Don Howard MD 12/02/2023 12:57 AM EDT RP Dictated By: Don Howard MD Signed By: <Electronically signed by Don Howard MD in OV> 12/02/23 0057 DD/ 0804 TD/TT: 10/31/23 0810 Fig Caprifier: MM tomosynthesis screening B I Reviewed date:12/26/2023 07:54:49 AM Interpretation: Performing Lab: Notes/Report: [facility] [address] [place] [address] Mammography Report Signed Patient: Mendy Corey MR#: [id number] 936 : 1960 Acct:[id number] Age/Sex: 63 / F ADM Date: 12/03/23 Loc: HO.MAMMO Attending Dr: Cliff Painting MD Ordering Physician: Cliff Painting MD Results: 1Negativ e Date of Service: 12/03/23 Follow Up: 1 Year From [facility] Mammogram Procedure(s): MM tomosynthesis screening BI Accession Number(s): [id number] cc: Cliff Painting MD EXAMINATION: MM SCREENING [...] OV> 12/15/23 1115 DD/ 9 TD/TT: 12/03/23908 Fig Caprifier: [facility] [address] [place], [place] [address] Mammography Report Signed Patient: Brandi Corey MR#: [id number] 936 : 1960 Acct:[id number] Age/Sex: 63 / F ADM Date: 12/03/23 Loc: HO.MAMMO Attending Dr: Cliff Painting MD Ordering Physician: Cliff Painting MD Results: 1Negativ e Date of Service: 12/03/23 Follow Up: 1 Year From Orig inal Mammogram Procedure(s): MM tomosynthesis screening BI Accession Number(s): [id number] cc: Cliff Painting MD EXAMINATION: MM SCREENING [...] Crain DO Signed By: <Electronically signed by aKjal Crain DO in OV> 12/15/23 1115 DD/ 9 TD/TT: 12/03/23908 Fig Caprifier: Complete Blood Count Auto Di ff (Not yet reviewed by provider) Interpretation: Performing Lab:[facility], [address] [place] [address] Notes/Report: White Blood Count 6.1 4.8-10.8 X10*3/uL Red Blood Count 4.72 4.20-5.50 X10*6/uL Hemoglobin 14.1 12.0-16.0 g/dl Hematocrit 43.5 37.0-47.0 % Mean Corpuscular Volume 92.2 80.0-98.0 fL Mean Corpuscular Hemoglobin 29.9 27.0-33.0 pg Mean Corpuscular HGB Conc 32.4 31.0-35.0 g/dl Red Cell Distribution Width 13.0 11.0-16.0 % Platelet Count 237 160-400 X10*3/uL Mean Platelet Volume 9.3 9.4-12.3 fL Neutrophils Percent Auto 54.6 45-73 % Imm Gran Pct Auto 0.3 0.0-0.4 % Lymphocytes Percent Auto 34.2 20-40 % Monocytes Percent Auto 7.1 2-11 % Eosinophils Percent Auto 2.6 0-4 % Basophils Percent Auto 1.2 0-2 % NRBC Pct Auto 0.0 0.0-0.2 /100WBC Neutrophils Absolute Auto 3.3 2.0-8.3 x10*3/u L Imm Gran Abs Auto 0.02 0.00-0.03 X10*3/uL Lymphocytes Absolute Auto 2.1 1.2-4.9 X10*3/u L Monocytes Absolute Auto 0.4 0.1-1.2 X10*3/uL Eosinophils Absolute Auto 0.2 0.0-0.4 X10*3/u L Basophils Absolute Auto 0.1 0.0-0.2 X10*3/uL NRBC Abs Auto 0.000 0.0-0.012 X10*3/uL Comprehensive [place]. Panel Fa st (Not yet reviewed by provider) Interpretation: Performing Lab:[facility], [address] [place] [address] Notes/Report: Sodium 140 135-145 mmol/L Potassium 4.3 3.3-5.1 mmol/L Chloride 107 96-108 mmol/L Carbon Dioxide 28 22-29 mmol/L Anion Gap 9 12-20 Blood Urea Nitrogen 17 9-16 mg/dL Creatinine 0.78 0.5-1.4 mg/dL Estimated Glomerular Filt Rate > 60 Chronic Kidney Disease: Estimated GFR < 60 mL/min/1.73m2 Severe Kidney Disease: Estimated GFR < 15 mL/min/1.73m2 Glucose Fasting 93 60-99 mg/dL Calcium 9.1 8.4-10.2 mg/dL Bilirubin Total 0.4 0.0-1.0 mg/dL Aspartate Amino Transferase 22 5-31 U/L Alanine Aminotransferase 16 0-31 U/L Total Protein 7.1 6.5-8.0 g/dL Albumin Level 4.1 3.5-5.0 g/dL Alkaline Phosphatase 83 39-117 U/L Lipid Panel (Not yet reviewe d by provider) Interpretation: Performing Lab:[facility], [address] [place] [address] Notes/Report: Triglycerides 177 <150 mg/dL Desirable Triglyceride: less than 150 mg/dL Borderline High Triglyceride 150-199 mg/dL High Triglyceride: 200-499 mg/dL Very High Triglyceride: greater than or equal to 5OO mg/dL Cholesterol 217 <200 mg/dL Desirable Cholesterol: less than 200 mg/dL Borderline High Cholesterol: 200-239 mg/dL High Cholesterol: greater than 239 mg/dL LDL Cholesterol Calculated 139 <100 mg/dL Desirable LDL: less than 100 mg/dL Near Optimal/Above Optimal LDL: 110-129 mg/dL Borderline High LDL: 130-159 mg/dL High LDL: 160-189 mg/dL Very High LDL: greater than or equal to 190 mg/dL HDL Cholesterol 43 >40 mg/dL Desirable HDL: greater than 40 mg/dL Note: This HDL assay may give artificially low results in patients with liver disease. Reason For Referral No Information Medications Medication [...] Problem Status W/U Status Risk Notes Problem 205153507 Overweight (E66.3) Active confirmed She has gained 5 pounds over the winter. We discussed her diet and nutrition. We made a plan to lose weight at a rate of one half of a pound per week through a diet restricted in calories combined with exertional exercise. Problem 57187253 Depression (F32.9) Active confirmed She denies feeling depressed. She has been conducting all of the activities of daily life without impairment. Problem 136351475 Unspecified asthma, uncomplicated (J45.909) Active confirmed She reports shortness of breath and some wheezing. She has been given 7 days of prednisone. Problem 357549641 Menopausal and female climacteric states (N95.1) Active confirmed She continues to be in a postmenopausal state without vaginal bleeding or periods. Problem 31848405 Tobacco dependence (F17.200) Active confirmed She continues t o smoke cigarettes. She is trying very hard to stop. She is smoking 3 a day and is well aware of the health consequences of continued smoking. She has been made aware of the smoke [place] program and examined of the smoking cessation programs available at all of the local hospitals. Problem Osteopenia (808667930) Osteopenia (M85.80) Active confirmed She continues her regimen of calcium carbonate and vitamin D. Problem 1691846 Psoriasis (L40.9) Active confirmed Her psoriasis was minimal today. She has patches of erythema on the lower extremities, but they are not pruritic and do not affect her ability in the activities of daily living. Problem 841833668 Panic attacks (F41.0) Active confirmed She has had no panic attacks recently and seemed quite calm today. This problem seems to be well controlled. Problem 59167698 Agoraphobia (F40.00) Active confirmed This problem matthews [...] Date Provider Diagnosis Cliff Painting III, MD [address] [place] [address] [place] [address] 10/26/2023 Cliff Painting Overweight E66.3 ; Colitis K52.9 ; Tobacco dependence F17.200 ; Unspecified asthma, uncomplicated J45.909 and Cough R05 Cliff Painting III, MD [address] [place] [address] [place] [address] 10/28/2023 Cliff Painting Overweight E66.3 ; Unspecified asthma, uncomplicated J45.909 ; Cough R05 ; Hematochezia K92.1 ; Depression F32.9 ; Tobacco dependence F17.200 ; Agoraphobia F40.00 ; Panic attacks F41.0 and Psoriasis L40.9 Cliff Painting III, MD [address] [place] [address] [place] [address] 01/24/2024 Cliff Painting Overweight E66.3 ; Unspecified asthma, uncomplicated J45.909 ; Tobacco dependence F17.200 and Depression F32.9 Cliff Painting III, MD [address] [place] [address] [place] [address] 03/08/2024 Cliff Painting Overweight E66.3 ; Tobacco dependence F17.200 ; Depression F32.9 ; Unspecified asthma, uncomplicated J45.909 and Acute bronchitis due to other specified organisms J20.8 Cliff Painting III, MD [address] [place] [address] [address] [place] [address] 07/23/2024 Cliff Marinarne Overweight E66.3 ; Tobacco dependence F17.200 ; Depression F32.9 and Osteopenia M85.80 Cliff Painting III, MD [address] [place] [address] [address] [place] [address] 10/28/2023 Cliff Marinarne Assessments Encounter Date Diagnosis (ICD Code) Assessment [...] has been made aware of the smoke [place] program and examined of the smoking cessation [...] has been made aware of the smoke [place] program and examined of the smoking cessation [...] Date PROFILE, FASTING (COMPREHENSIVE METABOLI C) 01/24/2024 PROFILE, FASTING (COMPREHENSIVE METABOLI C) 03/01/2017 PROFILE, FASTING (COMPREHENSIVE METABOLI C) 10/28/2023 PROFILE, FASTING (COMPREHENSIVE METABOLI C) 07/23/2024 PROFILE, FASTING (COMPREHENSIVE METABOLI C) 07/05/2017 LIPID PANEL 07/05/2017 LIPID PANEL 03/01/2017 CBC w DIFF 07/05/2017 CBC w DIFF 10/28/2023 CBC w DIFF 03/01/2017 CBC w DIFF 07/23/2024 BONE DENSITY DEXA 07/23/2024 CBC WITH AUTO DIFF 01/24/2024 Complete Blood Count Auto Diff Comprehensive [place]. Panel Fast Lipid Panel 01/24/2024 Lipid Panel 07/31/2024 Lipid Panel 10/28/2023 Lipid Panel 07/23/2024 Next Appt Details Provider Name:Cliff Painting, 01/28/2025 04:00:00 PM, [address] [place] [address] [address], [place], [address], Insurance Providers Payer Name Payer Address Payer Phone Subscriber Number Group Number Insured Name Patient Relationship to Insured Coverage Start Date Coverage End Date [facility] [address] [place], [place] [id number] [phone] [id number] Mendy Martino Self - patient is the insured Medical (General) History Medical History History ICD Code migraine headaches [id number] post menopause depression agoraphobia, panic attacks psoriasis, of the elbows trichotillomania tobacco dependence djd of neck last mammogram April 2013 Surgical History Surgery Date(Month/Year) No history tendon repair left antecubital fossa Hospitalization History Reason Date(Month/Year) No history
== END 2024-08-30 08:08 | disposition home or self-care (01) ==
LOC: HO.MAMMO 08:07
PROVIDERS: PCP Internal Medicine Medical Oncology; Visit Provider Internal Medicine Medical Oncology
DX: Z13.820 Encounter for screening for osteoporosis (principal); M81.0 Age-related osteoporosis without current pathological fracture
CPT/HCPCS: 77080

== ENCOUNTER → 2024-08-30 08:15 | Outpatient (BNV) | payer BC, SELFPAY | PROVIDERS: PCP Internal Medicine Medical Oncology; Visit Provider Radiology Diagnostic Radiology | DX: E28.39 Other primary ovarian failure (principal) | CPT/HCPCS: 77080 ==

== ENCOUNTER 2024-11-29 07:51 | Outpatient (REF) | payer BC, SELFPAY ==
--- OUTSIDE RECORDS SUMMARY | 2024-09-07 09:27 | XMS_ITS ---
Author Organization Cliff Painting III, MD Address [address] [facility] [place] [place] [address] Care Team Providers Care Milk Condenser Name Role Phone Cliff Painting Primary Care Provider REASON FOR VISIT Rx Request Medications Medication SIG (Take, Route, Fr equency, Duration) Notes Start Date End Date Status Azithromycin 250 MG as directed Orally 2 Tablets on the first day, one tablet the rest of the days for 5 days 09/07/2024 09/12/2024 Active predniSONE 20 MG 1 tablet with food o r milk Orally Once a day for 7 days 09/07/2024 09/14/2024 Act elizabeth Social History Sex Assigned At : Social History Observation Description Sex Assigned At Female Encounters Encounter Location Date Provider Diagnosis Cliff Painting III, MD [address] [place] [address] [place] [address] 09/07/2024 Cliff Painting Plan Of Treatment Medication Medication Name Sig Start Date Stop Date Notes Azithromycin 250 MG as directed Orally 2 Tablets on the first day, one tablet the rest of the days for 5 days 09/07/2024 09/12/2024 predniSONE 20 MG 1 tablet with food o r milk Orally Once a day for 7 days 09/07/2024 09/14/2024 Next Appt Details Provider Name:Cliff Painting, 01/28/2025 04:00:00 PM, [address] [facility] [place], [address], Progress Notes * Mendy COREYDOB:1960 (64 yo F)Acc No.[id number]:09/07/2024 Patient: Mendy GUERRA :1960 A ge:64 Y S ex:Female Address:[address] [place] [address] * Refills Start Azithromycin Tablet, 250 MG, Orally, 6, as directed, 2 Tablets on the first day, one tablet the rest of the days, 5 days, Refills=0 Start predniSONE Tablet, 20 MG, Orally, 7 Tablet, 1 tablet with food or milk, Once a day, 7 days, Refills=0 * true * Date: Generated for Connie brewster/Alexia/Jimitting on: 0 11/29/2024 07:56 AM EDT
--- OUTSIDE RECORDS SUMMARY | 2024-09-10 10:12 | XMS_ITS ---
Author Organization Cliff Painting III, MD Address [address] [facility] [place] [address] Care Team Providers Care Humane Agent Name Role Phone Cliff Painting Primary Care Provider REASON FOR VISIT Error Social History Sex Assigned At : Social History Observation Description Sex Assigned At Female Encounters Encounter Location Date Provider Diagnosis Cliff Painting III, MD [address] [place] [address] [place] [address] 09/10/2024 Cliff Painting Plan Of Treatment Next Appt Details Provider Name:Cliff Painting, 01/28/2025 04:00:00 PM, [address] [place] [address] [place], [address], Progress Notes * Mendy COREYDOB:1960 (64 yo F)Acc No.[id number]:09/10/2024 Patient: Violeta HILLS Mendy :1960 A ge:64 Y S ex:Female Address:[address] [address] * true * Date: Generated for Printi ng/Fajuan franciscog/eTransmitting on: 0 11/29/2024 07:56 AM EDT
--- OUTSIDE RECORDS SUMMARY | 2024-09-10 11:05 | XMS_ITS ---
Author Organization Cliff Painting III, MD Address [address] [facility] [address] Care Team Providers Care Mfts Name Role Phone Cliff Painting Primary Care Provider REASON FOR VISIT Error Social History Sex Assigned At : Social History Observation Description Sex Assigned At Female Encounters Encounter Location Date Provider Diagnosis Cliff Painting III, MD [address] [place] [address] [place] [address] 09/10/2024 Cliff Painting Plan Of Treatment Next Appt Details Provider Name:Cliff Painting, 01/28/2025 04:00:00 PM, [address] [place] [address] [place], [address], Progress Notes * Mendy COREYDOB:1960 (64 yo F)Acc No.[id number]:09/10/2024 Patient: Violeta HILLS Mendy :1960 A ge:64 Y S ex:Female Address:[address] [address] * true * Date: Generated for Printi ng/Fajuan franciscog/eTransmitting on: 0 11/29/2024 07:56 AM EDT
--- OUTSIDE RECORDS SUMMARY | 2024-09-10 11:42 | XMS_ITS ---
Author Organization Cliff Painting III, MD Address [address] [facility] [place] [address] Care Team Providers Care Mechanic Assistant Name Role Phone Cliff Painting Primary Care Provider REASON FOR VISIT Rx Request Social History Sex Assigned At : Social History Observation Description Sex Assigned At Female Encounters Encounter Location Date Provider Diagnosis Cliff Painting III, MD [address] [place] [address] [place] [address] 09/10/2024 Cliff Painting Plan Of Treatment Next Appt Details Provider Name:Cliff Painting, 01/28/2025 04:00:00 PM, [address] [place] [address] [place], [address], Progress Notes * Mendy COREYDOB:1960 (64 yo F)Acc No.[id number]:09/10/2024 Patient: Violeta HILLS Mendy :1960 A ge:64 Y S ex:Female Address:[address] [place] [address] * true * Date: Generated for Printi ng/Faxing/eTransmitting on: 0 11/29/2024 07:56 AM EDT
--- OUTSIDE RECORDS SUMMARY | 2024-09-10 11:46 | XMS_ITS ---
Author Organization Cliff Painting III, MD Address [address] [place] [address] Care Team Providers Care Basket Bottom Machine Operator Name Role Phone Cliff Painting Primary Care Provider Medications Medication SIG (Take, Route, Frequency, Duration) Notes Start Date End Date Status guaiFENesin-Codeine 100-10 MG/5ML 10 mL as needed Orally every 6 hrs for 7 days 09/10/2024 09/24/2024 Active Social History Sex Assigned At : Social History Observation Description Sex Assigned At Female Encounters Encounter Location Date Provider Diagnosis Cliff Painting III, MD [address] [place] [address] [place] [address] 09/10/2024 Cliff Painting Plan Of Treatment Medication Medication Name Sig Start Date Stop Date Notes guaiFENesin-Codeine 100-10 MG/5ML 10 mL as needed Orally every 6 hrs for 7 days 09/10/2024 09/24/2024 Next Appt Details Provider Name:Cliff Painting, 01/28/2025 04:00:00 PM, [address] [place] [address] [address], [address], Progress Notes * Mendy COREYDOB:1960 (64 yo F)Acc No.[id number]:09/10/2024 Patient: Mendy GUERRA :1960 A ge:64 Y S ex:Female Address:[address] [place] [address] * Refills Start guaiFENesin-Codeine Solution, 100-10 MG/5ML, Orally, 280 ML, 10 mL as needed, every 6 hrs, 7 days, Refills=1 * true * Date: Generated for Connie brewster/Alexia/Jimitting on: 0 11/29/2024 07:56 AM EDT
--- NOTE | ~2024-11-29 | CT_ITS ---
CLINICAL HISTORY: F17.210 - Nicotine dependence, cigarettes, uncomplicated CT lung cancer screening (LDCT) Comparison: CT/DC/SR - CT LUNG SCREENING - 10/31/23 08:04 EDT Technique: Axial CT images of the chest using low-dose technique. Referring provider counseled the patient on shared decision-making for LDCT screening. Additional counseling was provided on smoking cessation. Effective radiation dose total: DLP 32.4 mGycm, CTDIvol 1 mGy. Findings: New 1 cm left upper lobe nodule on image 76 with mild lobulation noted. New 1 cm nodule within the medial aspect of the lingula on image 85. Stable 3 mm right upper lobe nodule on image 39. Stable 3 mm left upper lobe nodule on image 52. Stable 5 mm left upper lobe nodule on image 34. Moderate pulmonary emphysema. Coronary artery calcifications: Mild Limited upper abdomen: 2 cm cyst within the lateral segment of the liver without change. Other: None IMPRESSION: Category 4 X, suspicious. Two new nodules within the left lung, a 1 cm nodule within the lingula and a 1 cm nodule within the left upper lobe. Left upper lobe nodule demonstrates mild lobulation. Recommend further evaluation with PET scan. ##L4X## This document has been electronically signed by: Aileen Carter MD on 11/29/2024 16:52:28
--- OUTSIDE RECORDS SUMMARY | 2024-11-29 07:56 | XMS_ITS | Patient Health Record ---
Author Organization Cliff Painting III, MD Address [address] [place] [address] Care Team Providers Care Nutritional Services Cook Name Role Phone Cliff Painting Primary Care Provider Allergies Allergen (clinical drug ingredient) Drug/Non Drug Allergy documented on EMR Reaction Allergy Type Onset Date Status No Known Food Allergy Unknown Drug Allergy Active Results Component Value Reference Range Notes MM tomosynthesis screening B I Reviewed date:12/26/2023 07:54:49 AM Interpretation: Performing Lab: Notes/Report: [address] [place] [address] Mammography Report Signed Patient: Mendy Corey MR#: [id number] [id number] : 1960 Acct:[id number] Age/Sex: 63 / F ADM Date: 12/03/23 Loc: HO.MAMMO Attending Dr: Cliff Painting MD Ordering Physician: Cliff Painting MD Results: 1Negativ e Date of Service: 12/03/23 Follow Up: 1 Year From [facility] ina Mammogram Procedure(s): MM tomosynthesis screening BI Accession Number(s): [id number] cc: Cliff Painting MD EXAMINATION: MM SCREENING [...] Kajal Crain DO 12/15/2023 11:15 AM EDT Dictated By: Kajal Crain DO Signed By: <Electronically signed by Kajal Crain DO in OV> 12/15/23 1115 DD/ 09 TD/TT: 12/03/23 09 Geophysical Laboratory Supervisor: [place] [facility]'s [address] [place] [address] Mammography Report Signed Patient: Brandi Corey MR#: [id number] [id number] : 1960 Acct:[id number] Age/Sex: 63 / F ADM Date: 12/03/23 Loc: HO.MAMMO Attending Dr: Cliff Painting MD Ordering Physician: Cliff Painting MD Results: 1Negativ e Date of Service: 12/03/23 Follow Up: 1 Year From [facility] ina Mammogram Procedure(s): MM tomosynthesis screening BI Accession Number(s): [id number] cc: Cliff Painting MD EXAMINATION: MM SCREENING [...] Kajal Crain DO 12/15/2023 11:15 AM EDT Dictated By: Kajal Crain DO Signed By: <Electronically signed by Kajal Crain DO in OV> 12/15/23 1115 DD/ 09 TD/TT: 12/03/23 0909 Geophysical Laboratory Supervisor: Complete Blood Count Auto Di ff (Not yet reviewed by provider) Interpretation: Performing Lab:[facility], [address] [place] [address] Notes/Report: White Blood Count 6.1 4.8-10.8 X10*3/uL [...] NRBC Abs Auto 0.000 0.0-0.012 X10*3/uL Comprehensive Pratts. Panel Fa st (Not yet reviewed by provider) Interpretation: Performing Lab:[facility], [address] [place] [phone] Notes/Report: Sodium 140 135-145 mmol/L Potassium 4.3 [...] yet reviewe d by provider) Interpretation: Performing Lab:[facility], [address] [place] [phone] Notes/Report: Triglycerides 177 <150 mg/dL Desirable Triglyceride: [...] low results in patients with liver disease. XR DEXA axial skeleton (Not yet reviewed by provider) Interpretation: Performing Lab: Notes/Report: [place] [facility]'s [address] [place] [address] Mammography Report Signed Patient: Mendy Corey MR#: [id number] 936 : 1960 Acct:[id number] Age/Sex: 64 / F ADM Date: 08/30/24 Loc: HO.MAMMO Attending Dr: Cliff Painting MD Ordering Physician: Cliff Painting MD Results: Date of Service: 08/30/24 Follow Up: Procedure(s): XR DEXA axial skeleton Accession Number(s): [id number] cc: Cliff Painting MD EXAMINATION: DXA BONE DENSITY AXIAL HISTORY: OSTEOPENIA TECHNIQUE: WiMi5 Dual energy absorptiometry (DEXA) of the lumbar spine, total left hip, and femoral neck was performed. COMPARISON: There are no prior studies for comparison. FINDINGS: The bone mineral density of the lumbar spine is 0.700, corresponding to a T-score of -4.0, and a Z-score of -2.7. This is indicative of osteoporosis. The bone mineral density of the left total hip is 0.533, corresponding to a T-score of -3.8, and a Z-score of -2.8. This is indicative of osteoporosis. The bone mineral density of the left femoral neck is 0.604, corresponding to a T-score of -3.1, and a Z-score of -1.9. This is indicative of osteoporosis. MM/XR DEXA axial skeleton IMPRESSION: Based on bone mineral density, and according to World Health Organization (WHO) criteria, the diagnosis is consistent with osteoporosis. All bone density values are in grams per centimeter squared (g/cm2). Statistically, 68% of repeat scans fall within 1 SD (+/- 0.010 g/cm2 for AP spine L1-L4) and 1 SD (+/- 0.012 g/cm2 for femur total) FRAX is a trademark of the [employer] [employer] [facility], a World Health Organization (WHO) Collaborating Center. Electronically signed by: Cliff Johnson MD 09/03/2024 07:13 AM EDT RP Dictated By: Cliff Johnson MD Signed By: <Electronically signed by Cliff Johnson MD in OV> 09/03/24 0713 DD/ TD/TT: 08/30/24 0836 Geophysical Laboratory Supervisor: [place] [facility]'s [address] [place], [place] [address] Mammography Report Signed Patient: Brandi Corey MR#: [id number] 936 : 1960 Acct:[id number] Age/Sex: 64 / F ADM Date: 08/30/24 Loc: HO.MAMMO Attending Dr: Cliff Painting MD Ordering Physician: Cliff Painting MD Results: Date of Service: 08/30/24 Follow Up: Procedure(s): XR DEX A axial skeleton Accession Number(s): [id number] cc: Cliff Painting MD EXAMINATION: DXA BON E DENSITY AXIAL HISTORY: OSTEOPENIA TECHNIQUE: WiMi5 Dual energy absorptiometry (DEXA) of the lumbar spine, total left hip, and femoral neck was performed. COMPARISON: There ar e no prior studies for comparison. FINDINGS: The bone mineral density of the lumbar spine is 0.700, corresponding to a T-score of -4.0, a nd a Z-score of -2.7. This is indicative of osteoporosis. The bone mineral density of the left total hip is 0.533, corresponding to a T-score of -3.8 , and a Z-score of -2.8. This is indicative of osteoporosis. The bone mineral density of the left femoral neck is 0.604, corresponding to a T-score of -3.1, and a Z-score of -1.9. This is indicative of osteoporosis. ___ MM/XR DEXA axial skeleton IMPRESSION: Based on bone minera l density, and according to World Health Organization (WHO) criteria, the diagnosis is consistent with osteoporosis. All bone density jose m ues are in grams per centimeter squared (g/cm2). Statistically, 68% o f repeat scans fall within 1 SD (+/- 0.010 g/cm2 for AP spine L1-L4) and 1 SD (+/- 0.012 g/cm2 for femur total) FRAX is a trademark of the [employer] [facility], a World Health Organization (WHO) Collaborating Center. Electronically hemant d by: Cliff Johnson MD 09/03/2024 07:13 AM EDT RP Dictated By: Cliff Johnson MD Signed By: <Electronically signed by Cliff Johnson MD in OV> 09/03/24 0713 DD/ TD/TT: 08/30/24 0836 Geophysical Laboratory Supervisor: Reason For Referral No Information Medications Medication [...] Problem Status W/U Status Risk Notes Problem 732919076 Overweight (E66.3) Active confirmed She has gained 5 pounds over the winter. We discussed her diet and nutrition. We made a plan to lose weight at a rate of one half of a pound per week through a diet restricted in calories combined with exertional exercise. Problem 78325229 Depression (F32.9) Active confirmed She denies feeling depressed. She has been conducting all of the activities of daily life without impairment. Problem 337177296 Unspecified asthma, uncomplicated (J45.909) Active confirmed She reports shortness of breath and some wheezing. She has been given 7 days of prednisone. Problem 027114089 Menopausal and female climacteric states (N95.1) Active confirmed She continues to be in a postmenopausal state without vaginal bleeding or periods. Problem 65937833 Tobacco dependence (F17.200) Active confirmed She continues t o smoke cigarettes. She is trying very hard to stop. She is smoking 3 a day and is well aware of the health consequences of continued smoking. She has been made aware of the smoke [place] program and examined of the smoking cessation programs available at all of the local hospitals. Problem Osteopenia (292319515) Osteopenia (M85.80) Active confirmed She continues her regimen of calcium carbonate and vitamin D. Problem 8283334 Psoriasis (L40.9) Active confirmed Her psoriasis was minimal today. She has patches of erythema on the lower extremities, but they are not pruritic and do not affect her ability in the activities of daily living. Problem 038329257 Panic attacks (F41.0) Active confirmed She has had no panic attacks recently and seemed quite calm today. This problem seems to be well controlled. Problem 00783373 Agoraphobia (F40.00) Active confirmed This problem matthews [...] Date Provider Diagnosis Cliff Painting III, MD [address] [place] [address] [place] [address] 01/24/2024 Cliff Painting Overweight E66.3 ; Unspecified asthma, uncomplicated J45.909 ; Tobacco dependence F17.200 and Depression F32.9 Cliff Painting III, MD [address] [place] [address] [place] [address] 03/08/2024 Cliff Painting Overweight E66.3 ; Tobacco dependence F17.200 ; Depression F32.9 ; Unspecified asthma, uncomplicated J45.909 and Acute bronchitis due to other specified organisms J20.8 Cliff Painting III, MD [address] [place] [address] [place] [address] 07/23/2024 Cliff Painting Overweight E66.3 ; Tobacco dependence F17.200 ; Depression F32.9 and Osteopenia M85.80 Cliff Painting III, MD [address] [place] [address] [place] [address] 09/07/2024 Cliff Painting III, MD [address] [place] [address] [place] [address] 09/10/2024 Cliff Painting III, MD [address] [place] [address] [place] [address] 09/10/2024 Cliff Painting III, MD [address] [place] [address] [place] [address] 09/10/2024 Cliff Painting III, MD [address] [place] [address] [place] [address] 09/10/2024 Cliff Painting Assessments Encounter Date Diagnosis (ICD [...] has been made aware of the smoke [place] program and examined of the smoking cessation programs available at all of the local hospitals. 01/24/2024 Tobacco dependence (ICD-10 - F17.200) She [...] the activities of daily life without impairment. 01/24/2024 Depression (ICD-10 - F32.9) Her depression [...] regimen of calcium carbonate and vitamin D. 03/08/2024 Acute bronchitis due to other specified organisms (ICD-10 - J20.8) I have given her a course of prednisone and azithromycin. Plan Of Treatment Pending Test Test Name [...] 01/24/2024 Complete Blood Count Auto Diff Comprehensive Pratts. Panel Fast Lipid Panel 01/24/2024 Lipid Panel 07/31/2024 Lipid Panel 10/28/2023 Lipid Panel 07/23/2024 XR DEXA axial skeleton 08/30/2024 Next Appt Details Provider Name:Cliff Marinarne, 01/28/2025 04:00:00 PM, [address] [place] [address] [address], [place], [address], Insurance Providers Payer Name Payer Address Payer Phone Subscriber Number Group Number Insured Name Patient Relationship to Insured Coverage Start Date Coverage End Date [facility] [address] [place], [place] [phone] [id number] Mendy Martino Self - patient is the insured Medical (General) History Medical History History ICD Code migraine headaches [id number] post menopause depression agoraphobia, panic attacks psoriasis, of the elbows trichotillomania tobacco dependence djd of neck last mammogram April 2013 Surgical History Surgery Date(Month/Year) No history tendon repair left antecubital fossa Hospitalization History Reason Date(Month/Year) No history
== END 2024-11-29 07:52 | disposition home or self-care (01) ==
LOC: HO.CT 07:51
PROVIDERS: PCP Internal Medicine Medical Oncology; Visit Provider Physician Assistant Medical
DX: Z12.2 Encounter for screening for malignant neoplasm of respiratory organs (principal); F17.210 Nicotine dependence, cigarettes, uncomplicated
CPT/HCPCS: 71271

== ENCOUNTER → 2024-11-29 07:51 | Outpatient (BNV) | payer BC, SELFPAY | PROVIDERS: PCP Internal Medicine Medical Oncology; Visit Provider Radiology Diagnostic Radiology | DX: F17.210 Nicotine dependence, cigarettes, uncomplicated (principal) | CPT/HCPCS: 71271 ==

== ENCOUNTER 2024-11-30 12:50 | Outpatient (REF) | payer BC, SELFPAY ==
--- OUTSIDE RECORDS SUMMARY | 2024-09-10 10:12 | XMS_ITS ---
Author Organization Cliff Painting III, MD Address [address] [facility] [place] [address] Care Team Providers Care Barrow Worker Helper Name Role Phone Cliff Painting Primary Care Provider REASON FOR VISIT Error Social History Sex Assigned At : Social History Observation Description Sex Assigned At Female Encounters Encounter Location Date Provider Diagnosis Cliff Painting III, MD [address] [place] [address] [place] [address] 09/10/2024 Cliff Painting Plan Of Treatment Next Appt Details Provider Name:Cliff Painting, 01/28/2025 04:00:00 PM, [address] [place] [address] [place], [address], Progress Notes * Mendy COREYDOB:1960 (64 yo F)Acc No.[id number]:09/10/2024 Patient: Violeta HILLS Mendy :1960 A ge:64 Y S ex:Female Address:[address] [place] [address] * true * Date: Generated for Printi ng/Faxing/eTransmitting on: 0 11/30/2024 12:53 PM EDT
--- OUTSIDE RECORDS SUMMARY | 2024-09-10 11:05 | XMS_ITS ---
Author Organization Cliff Painting III, MD Address [address] [place] [address] Care Team Providers Care Recruiting Coordinator Name Role Phone Cliff Painting Primary Care Provider [phone] REASON FOR VISIT Error Social History Sex Assigned At : Social History Observation Description Sex Assigned At Female Encounters Encounter Location Date Provider Diagnosis Cliff Painting III, MD [address] [place] [address] [place] [address] 09/10/2024 Cliff Painting Plan Of Treatment Next Appt Details Provider Name:Cliff Painting, 01/28/2025 04:00:00 PM, [address] [place] [address] [place], [address], Progress Notes * Mnedy COREYDOB:1960 (64 yo F)Acc No.[id number]:09/10/2024 Patient: Violeta HILLS Mendy :1960 A ge:64 Y S ex:Female Address:[address] [place] [address] * true * Date: Generated for Printi ng/Faxing/eTransmitting on: 0 11/30/2024 12:53 PM EDT
--- OUTSIDE RECORDS SUMMARY | 2024-09-10 11:42 | XMS_ITS ---
Author Organization Cliff Painting III, MD Address [address] [facility] [address] Care Team Providers Care Information Services Vice President Name Role Phone Cliff Painting Primary Care Provider REASON FOR VISIT Rx Request Social History Sex Assigned At : Social History Observation Description Sex Assigned At Female Encounters Encounter Location Date Provider Diagnosis Cliff Paintnig III, MD [address] [place] [address] [place] [address] 09/10/2024 Cliff Painting Plan Of Treatment Next Appt Details Provider Name:Cliff Painting, 01/28/2025 04:00:00 PM, [address] [place] [address] [place], [address], Progress Notes * Mendy COREYDOB:1960 (64 yo F)Acc No.[id number]:09/10/2024 Patient: Violeta HILLS Mendy :1960 A ge:64 Y S ex:Female Address:[address] [place] [address] * true * Date: Generated for Printi ng/Faxing/eTransmitting on: 0 11/30/2024 12:52 PM EDT
--- OUTSIDE RECORDS SUMMARY | 2024-09-10 11:46 | XMS_ITS ---
Author Organization Cliff Painting III, MD Address [address] [place] [place] [address] Care Team Providers Care Rural Sociologist Name Role Phone Cliff Painting Primary Care Provider [phone] Medications Medication SIG (Take, Route, Frequency, Duration) Notes Start Date End Date Status guaiFENesin-Codeine 100-10 MG/5ML 10 mL as needed Orally every 6 hrs for 7 days 09/10/2024 09/24/2024 Active Social History Sex Assigned At : Social History Observation Description Sex Assigned At Female Encounters Encounter Location Date Provider Diagnosis Cliff Painting III, MD [address] [place] [address] [place] [address] 09/10/2024 Cliff Painting Plan Of Treatment Medication Medication Name Sig Start Date Stop Date Notes guaiFENesin-Codeine 100-10 MG/5ML 10 mL as needed Orally every 6 hrs for 7 days 09/10/2024 09/24/2024 Next Appt Details Provider Name:Cliff Painting, 01/28/2025 04:00:00 PM, [address] [place] [address] [address] [facility] [place], [address], Progress Notes * Mendy COREYDOB:1960 (64 yo F)Acc No.[id number]:09/10/2024 Patient: Mendy GUERRA :1960 A ge:64 Y S ex:Female Address:[address] [place] [address] * Refills Start guaiFENesin-Codeine Solution, 100-10 MG/5ML, Orally, 280 ML, 10 mL as needed, every 6 hrs, 7 days, Refills=1 * true * Date: Generated for Connie brewster/Alexia/Jimitting on: 0 11/30/2024 12:53 PM EDT
--- OUTSIDE RECORDS SUMMARY | 2024-11-30 06:50 | XMS_ITS ---
Author Organization Cliff Painting III, MD Address [address] [address] Care Team Providers Care Environmental Protection Economist Name Role Phone Cliff Painting Primary Care Provider REASON FOR VISIT FYI only Social History Sex Assigned At : Social History Observation Description Sex Assigned At Female Encounters Encounter Location Date Provider Diagnosis Cliff Painting III, MD [address] [place] [address] [place] [address] 11/30/2024 Cliff Painting Plan Of Treatment Next Appt Details Provider Name:Cliff Painting, 01/28/2025 04:00:00 PM, [address] [place] [address] [place], [address], Progress Notes * Mendy COREYDOB:1960 (64 yo F)Acc No.[id number]:11/30/2024 Patient: Violeta YAIRYAQUELIN Mendy :1960 A ge:64 Y S ex:Female Address:[address] [place] [address] * true * Date: Generated for Printi ng/Faxing/eTransmitting on: 0 11/30/2024 12:53 PM EDT
--- OUTSIDE RECORDS SUMMARY | 2024-11-30 12:53 | XMS_ITS | Patient Health Record ---
Author Organization Cliff Painting III, MD Address [address] [place] [address] Care Team Providers Care Paid Search Specialist Name Role Phone Cliff Painting Primary Care Provider Allergies Allergen (clinical drug ingredient) Drug/Non Drug Allergy documented on EMR Reaction Allergy Type Onset Date Status No Known Food Allergy Unknown Drug Allergy Active Results Component Value Reference Range Notes MM tomosynthesis screening B I Reviewed date:12/26/2023 07:54:49 AM Interpretation: Performing Lab: Notes/Report: [address] [place] [address] Mammography Report Signed Patient: Mendy Corey MR#: [id number] 936 : 1960 Acct:[id number] Age/Sex: 63 / F ADM Date: 12/03/23 Loc: HO.MAMMO Attending Dr: Cliff Painting MD Ordering Physician: Cliff Painting MD Results: 1Negativ e Date of Service: 12/03/23 Follow Up: 1 Year From [facility] Mammogram Procedure(s): MM tomosynthesis screening BI Accession Number(s): [id number] cc: Cliff Painting MD EXAMINATION: MM SCREENING [...] 12/15/23 1115 DD/ 09 TD/TT: 12/03/23 09 Press Operator Helper: [place] [facility] [address] [place] [address] Mammography Report Signed Patient: Brandi Corey MR#: [id number] 936 : 1960 Acct:[id number] Age/Sex: 63 / F ADM Date: 12/03/23 Loc: HO.MAMMO Attending Dr: Cliff Painting MD Ordering Physician: Cliff Painting MD Results: 1Negativ e Date of Service: 12/03/23 Follow Up: 1 Year From [facility] Mammogram Procedure(s): MM tomosynthesis screening BI Accession Number(s): [id number] cc: Cliff Painting MD EXAMINATION: MM SCREENING [...] 12/15/23 1115 DD/ 09 TD/TT: 12/03/23 0909 Press Operator Helper: Complete Blood Count Auto Di ff (Not yet reviewed by provider) Interpretation: Performing Lab:[facility], [address] [place] [phone] Notes/Report: White Blood Count 6.1 4.8-10.8 X10*3/uL [...] NRBC Abs Auto 0.000 0.0-0.012 X10*3/uL Comprehensive [place]. Panel Fa st (Not yet reviewed by provider) Interpretation: Performing Lab:[facility], [address] [place] [phone] Notes/Report: Sodium 140 135-145 mmol/L Potassium 4.3 [...] yet reviewe d by provider) Interpretation: Performing Lab:[facility], [address] [place] [phone] Notes/Report: Triglycerides 177 <150 mg/dL Desirable Triglyceride: [...] by provider) Interpretation: Performing Lab: Notes/Report: [place] [facility] [address] [place] [address] Mammography Report Signed Patient: Mendy Corey MR#: [id number] 936 : 1960 Acct:[id number] Age/Sex: 64 / F ADM Date: 08/30/24 Loc: HO.MAMMO Attending Dr: Cliff Painting MD Ordering Physician: Cliff Painting MD Results: Date of Service: 08/30/24 Follow Up: Procedure(s): XR DEXA axial skeleton Accession Number(s): [id number] cc: Cliff Painting MD EXAMINATION: DXA BONE DENSITY AXIAL HISTORY: OSTEOPENIA TECHNIQUE: [employer] Dual energy absorptiometry (DEXA) of the lumbar [...] is a trademark of the [employer] Metabolic Bone Disease, a World Health Organization (WHO) Collaborating Center. Electronically signed by: Cliff Johnson MD 09/03/2024 07:13 AM EDT RP Dictated By: Cliff Johnson MD Signed By: <Electronically signed by Cliff Johnson MD in OV> 09/03/24 0713 DD/ TD/TT: 08/30/24 0836 Press Operator Helper: [place] [facility] [address] [place], [place] [address] Mammography Report Signed Patient: Brandi Corey MR#: [id number] 936 : 1960 Acct:[id number] Age/Sex: 64 / F ADM Date: 08/30/24 Loc: HO.MAMMO Attending Dr: Cliff Painting MD Ordering Physician: Cliff Painting MD Results: Date of Service: 08/30/24 Follow Up: Procedure(s): XR DEX A axial skeleton Accession Number(s): [id number] cc: Cliff Painting MD EXAMINATION: DXA BON E DENSITY AXIAL HISTORY: OSTEOPENIA TECHNIQUE: [employer] Dual energy absorptiometry (DEXA) of the lumbar [...] is a trademark of the [employer] Met[facility] [employer] Disease, a World Health Organization (WHO) Collaborating Center. Electronically hemant d by: Cliff Johnson MD 09/03/2024 07:13 AM EDT RP Dictated By: Cliff Johnson MD Signed By: <Electronically signed by Cliff Johnson MD in OV> 09/03/24712 DD/ 0815 TD/TT: 08/30/24 0836 Press Operator Helper: CT lung screening (Not yet r eviewed by provider) Interpretation: Performing Lab: Notes/Report: [address] [address] [address] Scan Report Signed Patient: Mendy Corey MR#: [id number] 936 : 1960 Acct:[id number] Age/Sex: 64 / F ADM Date: 11/29/24 Loc: .CT Attending Dr: Terra Ho PA-C Ordering Physician: Terra Ho PA-C Date of Service: 11/29/24 Procedure(s): CT lung screening Accession Number(s): [id number] cc: Cliff Painting MD; Terra Ho PA-C Report Number: [id number]: Total DLP = 44.00 mGy-cm Reason for Exam: F17.210 - Nicotine dependence, cigarettes, uncomplicated CLINICAL HISTORY: F17.210 - Nicotine dependence, cigarettes, uncomplicated CT lung cancer screening (LDCT) Comparison: CT/WA/SR - CT LUNG SCREENING - 10/31/23 08:04 EDT Technique: Axial CT images of the chest using low-dose technique. Referring provider counseled the patient on shared decision-making for LDCT screening. Additional counseling was provided on smoking cessation. Effective radiation dose total: DLP 32.4 mGycm, CTDIvol 1 mGy. Findings: New 1 cm left upper lobe nodule on image 76 with mild lobulation noted. New 1 cm nodule within the medial aspect of the lingula on image 85. Stable 3 mm right upper lobe nodule on image 39. Stable 3 mm left upper lobe nodule on image 52. Stable 5 mm left upper lobe nodule on image 34. Moderate pulmonary emphysema. Coronary artery calcifications: Mild Limited upper abdomen: 2 cm cyst within the lateral segment of the liver without change. Other: None IMPRESSION: Category 4 X, suspicious. Two new nodules within the left lung, a 1 cm nodule within the lingula and a 1 cm nodule within the left upper lobe. Left upper lobe nodule demonstrates mild lobulation. Recommend further evaluation with PET scan. ##L4X## This document has been electronically signed by: Aileen Carter MD on 11/29/2024 16:52:28 Dictated By: Aileen Carter MD Signed By: <Electronically signed by Aileen Carter MD in OV> 11/29/24 165 DD/ 165 TD/TT: 11/29/241651 Press Operator Helper: [place] [address] CT Scan Report Signed Patient: Brandi Corey MR#: [id number] 936 : 1960 Acct:[id number] Age/Sex: 64 / F ADM Date: 11/29/24 Loc: .CT Attending Dr: Terra Ho PA-C Ordering Physician: Terra Ho PA-C Date of Service: 11/29/24 Procedure(s): CT danielle g screening Accession Number(s): [id number] cc: Cliff Painting MD; Terra Ho PA-C Report Number: [id number]: Total DLP = 44.00 mGy-cm Reason for Exam: F17.210 - Nicotine dependence, cigarettes, uncomplicated CLINICAL HISTORY: F17.210 - Nicotine dependence, cigarettes, uncomplicated CT lung cancer screening (LDCT) Comparison: CT/WA/SR - CT LUNG SCREENING - 10/31/23 08:04 EDT Technique: Axial CT images of t he chest using low-dose technique. Referring provider counseled the patien t on shared decision-making for LDCT screening. Additional counselin g was provided on smoking cessation. Effective radiation dose total: DLP 32.4 mGycm, CTDIvol 1 mGy. Findings: New 1 cm left upper lobe nodule on image 76 with mild lobulation noted. New 1 cm nodule with in the medial aspect of the lingula on image 85. Stable 3 mm right up per lobe nodule on image 39. Stable 3 mm left upper lobe nodule on image 52. Stable 5 mm left upper lobe nodule on image 34. Moderate pulmonary emphysema. Coronary artery calcifications: Mild Limited upper abdome n: 2 cm cyst within the lateral segment of the liver without change. Other: None IMPRESSION: Category 4 X, suspicious. Two new nodules within the left lung, a 1 cm nodule within the lingula and a 1 cm nodule within the left upper lobe. Left upper lobe nodu le demonstrates mild lobulation. Recommend further evaluation with PET scan. ##L4X## This document has be en electronically signed by: Aileen Carter MD on 11/29/2024 16:52:28 Dictated By: iAleen Carter MD Signed By: <Electronically signed by Aileen Carter MD in OV> 11/29/243 DD/ 165 TD/TT: 11/29/241651 Press Operator Helper: Reason For Referral No Information Medications Medication [...] Problem Status W/U Status Risk Notes Problem 744413765 Overweight (E66.3) Active confirmed She has gained 5 pounds over the winter. We discussed her diet and nutrition. We made a plan to lose weight at a rate of one half of a pound per week through a diet restricted in calories combined with exertional exercise. Problem 62971430 Depression (F32.9) Active confirmed She denies feeling depressed. She has been conducting all of the activities of daily life without impairment. Problem 132085712 Unspecified asthma, uncomplicated (J45.909) Active confirmed She reports shortness of breath and some wheezing. She has been given 7 days of prednisone. Problem 947100982 Menopausal and female climacteric states (N95.1) Active confirmed She continues to be in a postmenopausal state without vaginal bleeding or periods. Problem 60141483 Tobacco dependence (F17.200) Active confirmed She continues t o smoke cigarettes. She is trying very hard to stop. She is smoking 3 a day and is well aware of the health consequences of continued smoking. She has been made aware of the smoke [place] program and examined of the smoking cessation programs available at all of the local [facility]. Problem Osteopenia (685820749) Osteopenia (M85.80) Active confirmed She continues her regimen of calcium carbonate and vitamin D. Problem 8348305 Psoriasis (L40.9) Active confirmed Her psoriasis was minimal today. She has patches of erythema on the lower extremities, but they are not pruritic and do not affect her ability in the activities of daily living. Problem 705130012 Panic attacks (F41.0) Active confirmed She has had no panic attacks recently and seemed quite calm today. This problem seems to be well controlled. Problem 77611724 Agoraphobia (F40.00) Active confirmed This problem matthews [...] Date Provider Diagnosis Cliff Painting III, MD [address] [place] [address] [place] [address] 01/24/2024 Cliff Painting Overweight E66.3 ; Unspecified asthma, uncomplicated J45.909 ; Tobacco dependence F17.200 and Depression F32.9 Cliff Painting III, MD [address] [place] [address] [place] [address] 03/08/2024 Cliff Painting Overweight E66.3 ; Tobacco dependence F17.200 ; Depression F32.9 ; Unspecified asthma, uncomplicated J45.909 and Acute bronchitis due to other specified organisms J20.8 Cliff Painting III, MD [address] [place] [address] [place] [address] 07/23/2024 Cliff Painting Overweight E66.3 ; Tobacco dependence F17.200 ; Depression F32.9 and Osteopenia M85.80 Cliff Painting III, MD [address] [place] [address] [place] [address] 09/07/2024 Cliff Painting III, MD [address] [place] [address] [place] [address] 09/10/2024 Cliff Painting III, MD [address] [place] [address] [place] [address] 09/10/2024 Cliff Painting III, MD [address] [place] [address] [place] [address] 09/10/2024 Cliff Painting III, MD [address] [place] [address] [place] [address] 09/10/2024 Cliff Painting III, MD [address] [place] [address] [place] [address] 11/30/2024 Cliff Garima Assessments Encounter Date Diagnosis (ICD Code) Assessment [...] programs available at all of the local [facility]. 03/08/2024 Depression (ICD-10 - F32.9) Her depression [...] 01/24/2024 Complete Blood Count Auto Diff Comprehensive [place]. Panel Fast Lipid Panel 01/24/2024 Lipid Panel 07/31/2024 Lipid Panel 10/28/2023 Lipid Panel 07/23/2024 CT lung screening 11/29/2024 XR DEXA axial skeleton 08/30/2024 Next Appt Details Provider Name:Cliff Painting, 01/28/2025 04:00:00 PM, [address] [place] [address] , [address] [place], [place], [address], Insurance Providers Payer Name Payer Address Payer Phone Subscriber Number Group Number Insured Name Patient Relationship to Insured Coverage Start Date Coverage End Date [facility] [address] [place], [place] [id number] [phone] [id number] Mendy Martino Self - patient is the insured Medical (General) History Medical History History ICD Code migraine headaches [id number] post menopause depression agoraphobia, panic attacks psoriasis, of the elbows trichotillomania tobacco dependence djd of neck last mammogram April 2013 Surgical History Surgery Date(Month/Year) No history tendon repair left antecubital fossa Hospitalization History Reason Date(Month/Year) No history
--- NOTE | 2024-11-30 13:04 | PFT_ITS ---
Flows: FEV1: 38 % of predicted at 0.88 L FVC: 95 % of predicted at 2.84 L FEV1/FVC: 31 % Bronchodilator response: Present Volumes: Total lung capacity: 106 % of predicted at 5.34 L Residual volume: 148 % of predicted at 2.73 L Slow vital capacity: 82 % of predicted at 2.61 L Expiratory reserve volume: 126 % of predicted at 0.97 L Diffusion capacity: Moderately decreased Impression: Severe to very severe obstructive ventilatory defect with positive bronchodilator response. Increased residual volume suggests air trapping. Decreased diffusion capacity suggests emphysema. MTDD
[2024-11-30 13:47] VITALS: PULSE 78; O2SAT 95
== END 2024-11-30 12:51 | disposition home or self-care (01) ==
LOC: HO.RESP 12:50
PROVIDERS: PCP Internal Medicine Medical Oncology; Visit Provider Physician Assistant Medical
DX: R91.8 Other nonspecific abnormal finding of lung field (principal); F17.210 Nicotine dependence, cigarettes, uncomplicated
CPT/HCPCS: 94010; 94640; 94727; 94729

== ENCOUNTER → 2024-11-30 13:04 | Outpatient (BNV) | payer BC, SELFPAY | PROVIDERS: PCP Internal Medicine Medical Oncology; Visit Provider Internal Medicine Pulmonary Disease | DX: J98.4 Other disorders of lung (principal) | CPT/HCPCS: 94060; 94727; 94729 ==

== ENCOUNTER 2024-12-08 08:53 | Outpatient (REF) | payer BC, SELFPAY ==
--- OUTSIDE RECORDS SUMMARY | 2024-09-10 10:12 | XMS_ITS ---
Author Organization Cliff Painting III, MD Address [address] [facility] [place] [address] Care Team Providers Care Coke Worker Name Role Phone Dr. Cliff Painting III Primary Care Provider [phone] REASON FOR VISIT Error Social History Sex Assigned At : Social History Observation Description Sex Assigned At Female Encounters Encounter Location Date Provider Diagnosis Cliff Painting III, MD [address] [place] [address] [place] [address] 09/10/2024 Cliff Painting Plan Of Treatment Next Appt Details Provider Name:Cliff Painting , 01/28/2025 04:00:00 PM, [address] [place] [address] [place], [address], Progress Notes * Mendy COREYDOB:1960 (64 yo F)Acc No.[id number]:09/10/2024 Patient: Violeta HILLS Mendy :1960 A ge:64 Y S ex:Female Address:[address] [place] [address] * true * Date: Generated for Printi ng/Faxing/eTransmitting on: 0 12/08/2024 08:55 AM EDT
--- OUTSIDE RECORDS SUMMARY | 2024-09-10 11:05 | XMS_ITS ---
Author Organization Cliff Painting III, MD Address [address] [facility] [place] [place] [address] Care Team Providers Care Addiction Specialist Name Role Phone Dr. Cliff Painting III Primary Care Provider REASON FOR VISIT Error Social History Sex Assigned At : Social History Observation Description Sex Assigned At Female Encounters Encounter Location Date Provider Diagnosis Cliff Painting III, MD [address] [place] [address] [place] [address] 09/10/2024 Cliff Painting Plan Of Treatment Next Appt Details Provider Name:Cliff Painting , 01/28/2025 04:00:00 PM, [address] [place] [address] [place], [address], Progress Notes * Mendy COREYDOB:1960 (64 yo F)Acc No.[id number]:09/10/2024 Patient: Violeta HILLS Mendy :1960 A ge:64 Y S ex:Female Address:[address] [place] [address] * true * Date: Generated for Printi ng/Faxing/eTransmitting on: 0 12/08/2024 08:55 AM EDT
--- OUTSIDE RECORDS SUMMARY | 2024-09-10 11:42 | XMS_ITS ---
Author Organization Cliff Painting III, MD Address [address] [place] [address] Care Team Providers Care Final Inspector Balance Wheel Name Role Phone Dr. Cliff Painting III Primary Care Provider [phone] REASON FOR VISIT Rx Request Social History Sex Assigned At : Social History Observation Description Sex Assigned At Female Encounters Encounter Location Date Provider Diagnosis Cliff Painting III, MD [address] [place] [address] [place] [address] 09/10/2024 Cliff Painting Plan Of Treatment Next Appt Details Provider Name:Cliff Painting , 01/28/2025 04:00:00 PM, [address] [place] [address] [place], [address], Progress Notes * Mendy COREYDOB:1960 (64 yo F)Acc No.[id number]:09/10/2024 Patient: Mendy GUERRA :1960 A ge:64 Y S ex:Female Address:[address] [place] [address] * true * Date: Generated for Printi ng/Faxing/eTransmitting on: 0 12/08/2024 08:55 AM EDT
--- OUTSIDE RECORDS SUMMARY | 2024-09-10 11:46 | XMS_ITS ---
Author Organization Cliff Painting III, MD Address [address] [address] Care Team Providers Care Fbi Profiler Name Role Phone Dr. Cliff Painting III Primary Care Provider Medications Medication SIG (Take, Route, Frequency, Duration) Notes Start Date End Date Status guaiFENesin-Codeine 100-10 MG/5ML 10 mL as needed Orally every 6 hrs for 7 days 09/10/2024 09/24/2024 Active Social History Sex Assigned At : Social History Observation Description Sex Assigned At Female Encounters Encounter Location Date Provider Diagnosis Cliff Painting III, MD [address] [place] [address] [place] [address] 09/10/2024 Cliff Painting Plan Of Treatment Medication Medication Name Sig Start Date Stop Date Notes guaiFENesin-Codeine 100-10 MG/5ML 10 mL as needed Orally every 6 hrs for 7 days 09/10/2024 09/24/2024 Next Appt Details Provider Name:Cliff Painting , 01/28/2025 04:00:00 PM, [address] [facility] [place], [address], Progress Notes * Mendy COREYDOB:1960 (64 yo F)Acc No.[id number]:09/10/2024 Patient: Mendy GUERRA :1960 A ge:64 Y S ex:Female Address:[address] [place] [place] [address], [place] [address] * Refills Start guaiFENesin-Codeine Solution, 100-10 MG/5ML, Orally, 280 ML, 10 mL as needed, every 6 hrs, 7 days, Refills=1 * true * Date: Generated for Connie brewster/Alexia/Teresa on: 0 12/08/2024 08:55 AM EDT
--- OUTSIDE RECORDS SUMMARY | 2024-11-30 06:50 | XMS_ITS ---
Author Organization Cliff Painting III, MD Address [address] [place] [address] Care Team Providers Care Dry Cleaner Hand Name Role Phone Dr. Cliff Painting III Primary Care Provider REASON FOR VISIT FYI only Social History Sex Assigned At : Social History Observation Description Sex Assigned At Female Encounters Encounter Location Date Provider Diagnosis Cliff Painting III, MD [address] [place] [address] [place] [address] 11/30/2024 Cliff Painting Plan Of Treatment Next Appt Details Provider Name:Cliff Painting , 01/28/2025 04:00:00 PM, [address] [place] [address] [place], [address], Progress Notes * Mendy COREYDOB:1960 (64 yo F)Acc No.[id number]:11/30/2024 Patient: Mendy GUERRA :1960 A ge:64 Y S ex:Female Address:[address] [place] [address] * true * Date: Generated for Printi ng/Faxing/eTransmitting on: 0 12/08/2024 08:56 AM EDT
--- OUTSIDE RECORDS SUMMARY | 2024-12-08 08:55 | XMS_ITS | Patient Health Record ---
Author Organization Cliff Painting III, MD Address [address] [place] [address] Care Team Providers Care Uc Architect Name Role Phone Dr. Cliff Painting III Primary Care Provider [phone] Allergies Allergen (clinical drug ingredient) Drug/Non Drug Allergy documented on EMR Reaction Allergy Type Onset Date Status No Known Food Allergy Unknown Drug Allergy Active Results Component Value Reference Range Notes Complete Blood Count Auto Di ff (Not yet reviewed by provider) Interpretation: Performing Lab:[facility], [address] [place] [phone] Notes/Report: White Blood Count 6.1 4.8-10.8 X10*3/uL [...] NRBC Abs Auto 0.000 0.0-0.012 X10*3/uL Comprehensive [place]. Panel Fa (Not yet reviewed by provider) Interpretation: Performing Lab:[facility], [address] [place] [phone] Notes/Report: Sodium 140 135-145 mmol/L Potassium 4.3 [...] yet reviewe d by provider) Interpretation: Performing Lab:[facility], [address] [place] [phone] Notes/Report: Triglycerides 177 <150 mg/dL Desirable Triglyceride: [...] reviewed by provider) Interpretation: Performing Lab: Notes/Report: [facility] [address] [place] [address] Mammography Report Signed Patient: Mendy Corey MR#: [id number] 936 : 1960 Acct:[id number] Age/Sex: 64 / F ADM Date: 08/30/24 Loc: TAMMY Attending Dr: Cliff Painting MD Ordering Physician: Cliff Painting MD Results: Date of Service: 08/30/24 Follow Up: Procedure(s): XR DEXA axial skeleton Accession Number(s): [id number] cc: Cliff Painting MD EXAMINATION: DXA BONE DENSITY AXIAL HISTORY: OSTEOPENIA TECHNIQUE: [email or web address] Dual energy absorptiometry (DEXA) of the lumbar [...] is a trademark of the [employer] [place] for Metabolic Bone Disease, a World Health Organization (WHO) Collaborating Center. Electronically signed by: Cliff Johnson MD 09/03/2024 07:13 AM EDT RP Dictated By: Cliff Johnson MD Signed By: <Electronically signed by Cliff Johnson MD in OV> 09/03/24 0713 DD/ TD/TT: 08/30/24 0836 Electrophysiology Technologist: [facility] [address] [place] [address] Mammography Report Signed Patient: Brandi Corey MR#: [id number] 936 : 1960 Acct:[id number] Age/Sex: 64 / F ADM Date: 08/30/24 Loc: HO.MAMMO Attending Dr: Cliff Painting MD Ordering Physician: Cliff Painting MD Results: Date of Service: 08/30/24 Follow Up: Procedure(s): XR DEX A axial skeleton Accession Number(s): [id number] cc: Cliff Painting MD EXAMINATION: DXA BON E DENSITY AXIAL HISTORY: OSTEOPENIA TECHNIQUE: [email or web address] Dual energy absorptiometry (DEXA) of the lumbar [...] is a trademark of the [employer] [place] for Metabolic Bone Disease, a World Health Organization (WHO) Collaborating Center. Electronically hemant d by: Cliff Johnson MD 09/03/2024 07:13 AM EDT RP Dictated By: Cliff Johnson MD Signed By: <Electronically signed by Cliff Johnson MD in OV> 09/03/24 07 DD/ 0815 TD/TT: 08/30/24 0836 Electrophysiology Technologist: CT lung screening (Not yet r eviewed by provider) Interpretation: Performing Lab: Notes/Report: [address] [address] [address] Scan Report Signed Patient: Mendy Corey MR#: [id number] 936 : 1960 Acct:[id number] Age/Sex: 64 / F ADM Date: 11/29/24 Loc: HO.CT Attending Dr: Terra Ho PA-C Ordering Physician: Terra Ho PA-C Date of Service: 11/29/24 Procedure(s): CT lung screening Accession Number(s): [id number] cc: Cliff Painting MD; Terra Ho PA-C Report Number: [id number]: Total DLP = 44.00 mGy-cm Reason for Exam: F17.210 - Nicotine dependence, cigarettes, uncomplicated CLINICAL HISTORY: F17.210 - Nicotine dependence, cigarettes, uncomplicated CT lung cancer screening (LDCT) Comparison: CT/NM/SR - CT LUNG SCREENING - 10/31/23 08:04 [...] in OV> 11/29/243 DD/ 165 TD/TT: 11/29/241651 Electrophysiology Technologist: [place] [address] [address] Scan Report Signed Patient: Brandi Corey MR#: [id number] 936 : 1960 Acct:[id number] Age/Sex: 64 / F ADM Date: 11/29/24 Loc: HO.CT Attending Dr: Terra Ho PA-C Ordering Physician: Terra Ho PA-C Date of Service: 11/29/24 Procedure(s): CT danielle g screening Accession Number(s): [id number] cc: Cliff Painting MD; Terra Ho PA-C Report Number: [id number]: Total DLP = 44.00 mGy-cm Reason for Exam: F17.210 - Nicotine dependence, cigarettes, uncomplicated CLINICAL HISTORY: F17.210 - Nicotine dependence, cigarettes, uncomplicated CT lung cancer screening (LDCT) Comparison: CT/NM/SR - CT LUNG SCREENING - 10/31/23 08:04 EDT Technique: Axial CT images of t he chest using low-dose technique. Referring provider counseled the patien gavin on shared decision-making for LDCT screening. Additional [...] by Aileen Carter MD in OV> 11/29/24 1653 DD/ 165 TD/TT: 11/29/24 165 Electrophysiology Technologist: Reason For Referral No Information Medications Medication [...] Problem Status W/U Status Risk Notes Problem 198272551 Overweight (E66.3) Active confirmed She has gained 5 pounds over the winter. We discussed her diet and nutrition. We made a plan to lose weight at a rate of one half of a pound per week through a diet restricted in calories combined with exertional exercise. Problem 55737457 Depression (F32.9) Active confirmed She denies feeling depressed. She has been conducting all of the activities of daily life without impairment. Problem 790905993 Unspecified asthma, uncomplicated (J45.909) Active confirmed She reports shortness of breath and some wheezing. She has been given 7 days of prednisone. Problem 698563407 Menopausal and female climacteric states (N95.1) Active confirmed She continues to be in a postmenopausal state without vaginal bleeding or periods. Problem 98013879 Tobacco dependence (F17.200) Active confirmed She continues t o smoke cigarettes. She is trying very hard to stop. She is smoking 3 a day and is well aware of the health consequences of continued smoking. She has been made aware of the smoke [place] program and examined of the smoking cessation programs available at all of the local hospitals. Problem Osteopenia (900196391) Osteopenia (M85.80) Active confirmed She continues her regimen of calcium carbonate and vitamin D. Problem 8004989 Psoriasis (L40.9) Active confirmed Her psoriasis was minimal today. She has patches of erythema on the lower extremities, but they are not pruritic and do not affect her ability in the activities of daily living. Problem 463960267 Panic attacks (F41.0) Active confirmed She has had no panic attacks recently and seemed quite calm today. This problem seems to be well controlled. Problem 55380327 Agoraphobia (F40.00) Active confirmed This problem matthews [...] Date Provider Diagnosis Cliff Painting III, MD [address] [place] [address] [place] [address] 01/24/2024 Cliff Painting Overweight E66.3 ; Unspecified asthma, uncomplicated J45.909 ; Tobacco dependence F17.200 and Depression F32.9 Cliff Painting III, MD [address] [place] [address] [place] [address] 03/08/2024 Cliff Painting Overweight E66.3 ; Tobacco dependence F17.200 ; Depression F32.9 ; Unspecified asthma, uncomplicated J45.909 and Acute bronchitis due to other specified organisms J20.8 Cliff Painting III, MD [address] [place] [address] [place] [address] 07/23/2024 Cliff Painting Overweight E66.3 ; Tobacco dependence F17.200 ; Depression F32.9 and Osteopenia M85.80 Cliff Painting III, MD [address] [place] [address] [place] [address] 09/07/2024 Cliff Painting III, MD [address] [place] [address] [place] [address] 09/10/2024 Cliff Painting III, MD [address] [place] [address] [place] [address] 09/10/2024 Cliff Painting III, MD [address] [place] [address] [place] [address] 09/10/2024 Cliff Painting III, MD [address] [place] [address] [place] [address] 09/10/2024 Cliff Painting III, MD [address] [place] [address] [place] [address] 11/30/2024 Cliff Painting Assessments Encounter Date Diagnosis (ICD [...] has been made aware of the smoke [place] program and examined of the smoking cessation [...] has been made aware of the smoke [place] program and examined of the smoking cessation [...] Order Date PROFILE, FASTING (COMPREHENSIVE METABOLI C) 03/01/2017 PROFILE, FASTING (COMPREHENSIVE METABOLI C) 10/28/2023 PROFILE, FASTING (COMPREHENSIVE METABOLI C) 07/23/2024 PROFILE, FASTING (COMPREHENSIVE METABOLI C) 07/05/2017 PROFILE, FASTING (COMPREHENSIVE METABOLI C) 01/24/2024 LIPID PANEL 03/01/2017 LIPID PANEL 07/05/2017 CBC w DIFF 07/05/2017 CBC w DIFF 10/28/2023 CBC w DIFF 03/01/2017 CBC w DIFF 07/23/2024 BONE DENSITY DEXA 07/23/2024 CBC WITH AUTO DIFF 01/24/2024 Complete Blood Count Auto Diff 5 Comprehensive [place]. Panel Fast 5 Lipid Panel 01/24/2024 Lipid Panel 07/31/2024 Lipid Panel 10/28/2023 Lipid Panel 07/23/2024 CT lung screening 11/29/2024 XR DEXA axial skeleton 08/30/2024 Next Appt Details Provider Name:Cliff Painting , 01/28/2025 04:00:00 PM, [address] [place] [address] , [address], [place], [address], Insurance Providers Payer Name Payer Address Payer Phone Subscriber Number Group Number Insured Name Patient Relationship to Insured Coverage Start Date Coverage End Date [facility] [address] [place], [place] [id number] [phone] [id number] Mendy Martino Self - patient is the insured Medical (General) History Medical History History ICD Code migraine headaches [id number] post menopause depression agoraphobia, panic attacks psoriasis, of the elbows trichotillomania tobacco dependence djd of neck last mammogram April 2013 Surgical History Surgery Date(Month/Year) No history tendon repair left antecubital fossa Hospitalization History Reason Date(Month/Year) No history
== END 2024-12-08 08:54 | disposition home or self-care (01) ==
LOC: HO.MAMMO 08:53
PROVIDERS: PCP Internal Medicine Medical Oncology; Visit Provider Internal Medicine Medical Oncology
DX: Z12.31 Encounter for screening mammogram for malignant neoplasm of breast (principal)
CPT/HCPCS: 77063; 77067

== ENCOUNTER → 2024-12-08 09:00 | Outpatient (BNV) | payer BC, SELFPAY | PROVIDERS: PCP Internal Medicine Medical Oncology; Visit Provider Internal Medicine | DX: Z12.31 Encounter for screening mammogram for malignant neoplasm of breast (principal) | CPT/HCPCS: 77063; 77067 ==

== ENCOUNTER 2025-01-08 08:27 | Outpatient (AMB) | payer BC, SELFPAY ==
--- NOTE | 2025-01-08 08:29 | A.OFFVIS_ITS ---
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 He was evaluated last year by Pulmonary and she had been placed on the lung cancer screening program. There she had a CT scan of the chest back at [facility] in September 29, 2018 demonstrating multiple pulmonary nodules 1 measuring 5 mm in size and spiculated in nature. In addition to that she had extensive emphysema. She continues to smoke cigarettes unfortunately 1 pack a day. She continues use her inhalers with partial improving her symptoms. She does complaint of dyspnea on exertion even with minimal activity. Denies any significant mucus production. Denies any significant congestion. She states that has been smoking and also her others children smoke. We talked about the importance of smoking cessation. She is motivating wants to quit. I did provide her with a letter to provide her family. She is trying to cut down on her smoking with the nicotine patch Wellbutrin. She is down to 2 cigarettes a day which is very good for her. She is going to strive to quit completely. In the meantime she did have her low-dose CT scan with stable pulmonary nodules and moderate degree of emphysema. She also had PFTs demonstrating severe COPD and severe diffusion impairment. The patient is trying to stay active. 03/23/2022 the patient is here for a pulmonary follow-up visit. Overall the patient is doing well. She continues use the Trelegy inhaler with good effect. Still having a cough which is congested in nature. Typical of her smoker's cough. Bdfa-fm-ovxeikmo severity. Also complains of shortness of breath with activity. Mild in severity. She did have a recent CT scan of the chest which is reassuring. She is going to continue with the lung cancer screening program at this time. In addition to that she needs to quit smoking. She tried Wellbutrin and also that nicotine patch without any improvement with her tobacco cessation. Therefore, I will have her we would try her Chantix. In the past she did try and have GI symptoms. This time she is going to start the Chantix but be smoking less to minimize on the adverse effects of the smoking related negative feedback. 12/21/2022 the patient is here for a pulmonary follow-up visit. She is complaining of productive cough. Moderate severity. Trelegy is been helping. She has also been taking Mucinex twice a day. The patient finds helpful. Her mucus is pale in color. The patient is wondering if there is any other medication she can take. She did have a CT scan of the chest in October 2022 demonstrating stable pulmonary nodules. She is now rads 2. She should get a CT scan now in a year's time. In addition to that the patient is looking to quit smoking. She is not completely ready. I did give her a prescription for Chantix the last visit but she has not started as of yet. I did encourage her to start even if she is not ready at this time. The patient will try some ice in 4 months. If the patient feels better she can stop it. Otherwise she can also consider going on Daliresp or longer bout of azithromycin if it was effective. 12/21/2022 the patient is here for a pulmonary follow-up visit. Overall the patient is doing well. She still complaining of productive cough. She has been on the Trelegy inhaler that is been affected. Will try her on macrolide therapy for a month and see if she benefits. Otherwise she will be a good candidate for Daliresp. The patient is aware that he does have GI side effects. Unfortunately she is still smoking. She has not started the Chantix as of yet. She is waiting for her to be completely ready. Explained to her that with Chantix she does have to wait to be completely ready to quit and she can not smoke while on Chantix with the hope that she starts disliking in having a negative feedback effect from the smoking while in Chantix. She is going to consider starting at this time. She is also participating in the lung cancer screening program. Last CT scan October 2022 was still reassuring. Therefore she will get a repeat CT scan in a year's time. Will follow-up in 6 months. 06/14/2023 the patient is here for pulmonary follow-up visit. Since we last spoke the patient was seen for a COPD exacerbation. She was given doxycycline and prednisone. She felt a lot better on the doxycycline. Her symptoms did improve her now returning. Will go ahead and send another course of doxycycline to make sure. The patient does have chronic bronchitis from her COPD. She has frequent flare-ups. She will be a great candidate for Daliresp. She understands that has not GI side effects. She will be careful. I will give her some antinausea medications as needed. I am hoping she can tolerated and then we can increase to therapeutic dose. In the meantime she continues to smoke cigarettes. She has not smoked in 24 hours. She does have a hard time. She does have patches at home that she will try. The patient is also participating in the lung cancer screening program. Her next CT scan will be in October 2023. Will follow-up in the fall. If the patient wants to increase the Daliresp does she can always call and I can send a script prior to the next visit. 11/24/2023 the patient is here for a pulmonary follow-up visit. The patient overall is doing fair. Still having dyspnea on exertion. Ougy-vk-aodgjyyd karli rity. The patient does have a cough. Seems like the cough is not going away. Sometimes is productive. The patient did not start the Daliresp because it was misplaced. She recently found and she is going to be started. We did look at her CT scan of the chest to the lung cancer screening program. He has not been officially read. She has extensive emphysema. Nodules that have been present before him appeared to be stable. The patient does understand that her emphysema causes concerned about her smoking. The patient has tried quitting although she is having hard time. She is still smoking about 7 cigarettes a day. She has cut down significantly. She is willing to try Wellbutrin. Apparently Chantix caused depression so will try to avoid that. We did go for brief walking oximetry in the office. The patient did desaturate down to 85% with activity and she was visibly winded with dyspnea score of 7/10. The patient is not interested in oxygen at this time. She is still working. She is considering retiring addition 64. Will plan to have her come back in 6 months with pulmonary function studies and we can consider pulmonary rehabilitation at that point. 01/08/2025 the patient is here for pulmonary follow-up visit. The patient appears to be her baseline. She did unfortunately have an abnormal finding in lung cancer screening CAT scan. Had a pulmonary nodule in the lingula. A PET positive. The patient also had a good amount of emphysema. She was seen by thoracic surgery and is scheduled to undergo a navigational robotic bronchoscopy at [facility]. In the meantime we did review her PFTs. The patient has severe COPD with a severe diffusion impairment. She does have significant amount of emphysema in the upper lung zones. Therefore she may still be able to get a resection depending on how much functionality the left upper lobe has. Will go ahead and have her undergo a quantitative V/Q scan to assess the lung capacity in the left upper lobe. Ideally surgical resection will be with curative intent. The nodule is seems to be close to the higher in stereotactic radiation may be limited because of that. She continues use her respiratory therapy as prescribed. She will follow-up with Interventional Pulmonary and then thoracic surgery. Will plan for the quantitative V/Q scan at this time. [facility] Medical History (Updated 11/30/24 @ 08:14 by Terra Ho PA-C) Nicotine dependence, cigarettes, uncomplicated Pulmonary nodules COPD (chronic obstructive pulmonary disease) Social History Patient Tobacco Use Status: Current everyday Tobacco user Cigarette Packs Per Day: 1 Cigarettes Per Day: 1 Years Smoked: 45 years Review of Systems Const Denies fever(s) and Denies night sweats ENT Denies change in voice, Denies lip swelling, Denies mouth pain, Denies nasal congestion, Denies nasal discharge and Denies tongue swelling Card Denies chest pain and Reports dyspnea on exertion Resp Reports chest congestion, Reports cough, Reports dyspnea on exertion and Reports wheezing GI Denies abdominal pain Musc Denies no additional complaints Skin/Breast Denies rash Neuro Denies Neuro-related abnormal movements Psych Denies no additional complaints Khadar/Lymph Denies easy bleeding and Denies lymphadenopathy Aller/Immun Denies lip swelling, Denies tongue swelling and Reports wheezing Physical Exam Vital Signs: Last Vital Signs Pulse 85 01/08/25 08:30 BP 124/62 01/08/25 08:30 Pulse Ox 95 01/08/25 08:30 Oxygen Delivery Method Room Air 01/08/25 08:30 BMI result Body Mass Index 28.9 Const General: alert HEENT General nose exam: Abnormal external nose present and Nasal discharge present Eyes Pupils: Equal, round and reactive pupils present Neck Neck: Yes normal visual inspection, Yes full ROM and Yes no lymphadenopathy Chest Chest palpation & inspection: normal inspection of the chest Resp Effort & Inspection: prolonged expiratory phase Auscultation: no wheezes and diminished lung sounds Cardio Rate: regular rate Rhythm: regular rhythm Heart sounds: S1 normal heart sound present and S2 normal heart sound present GI Palpation (GI): Soft to palpation and nontender Auscultation: normal bowel sounds General: Yes no CVA tenderness Back/Spine/Pelvis Back: no CVA tenderness Skin General skin exam: rashes and/or lesions noted Neuro Cranial nerves: Yes Equal, round and reactive pupils present Assessment & Plan Assessment & Plan (1) COPD (chronic obstructive pulmonary disease): Code(s): J44.9 - Chronic obstructive pulmonary disease, unspecified Category: Medical Qualifiers: COPD type: emphysema Emphysema type: centrilobular Qualified Code(s): J43.2 - Centrilobular emphysema (2) Pulmonary nodules: Comment: (2 new nodules - 1cm ARIANA & 1cm lingula - reviewed at conference and plan is for Code(s): R91.8 - Other nonspecific abnormal finding of lung field Category: Medical (3) Tobacco dependence: Comment: (current smoker, 1ppd) Code(s): F17.200 - Nicotine dependence, unspecified, uncomplicated Category: Medical Plan continue Trelegy 200 Nebulizer therapy start Wellbutrin Thoracic surgery to biopsy via navigational bronchoscopy quantitative VQ scan to assess the ability to tolerate ARIANA resection Did not start, will consider Daliresp 250mcg later F/U 3 months Orders: Orders NM pul vent and perfuse Today R91.8 - Other nonspecific abnormal finding of lung field Medications: Refilled lxduiogusgs-fabbrgrvr-esmbwlwg 200-62.5-25 mcg (Trelegy Ellipta) 1 ea PO DAILY 60 ea 12RF ipratropium-albuterol 0.5 mg-3 mg(2.5 mg base)/3 mL 3 mL inhalation QID 360 mL 11RF 30 days J44.9 - Chronic obstructive pulmonary disease, unspecified Coding Level of Care Code Est Pt Level 5 (01184) Complex EM visit Add On G2211 Diagnoses Centrilobular emphysema J43.2 COPD type: emphysema Emphysema type: centrilobular Pulmonary nodules R91.8 Tobacco dependence F17.200 Time Spent (min) 45
[2025-01-08 08:30] VITALS: BP 124/62; PULSE 85; O2SAT 95; BMI 28.9
== END 2025-01-08 08:55 | disposition home or self-care (01) ==
LOC: HO.HPS 08:27
PROVIDERS: PCP Internal Medicine Medical Oncology; Visit Provider Hospitalist
DX: J43.2 Centrilobular emphysema (principal); R91.8 Other nonspecific abnormal finding of lung field; F17.200 Nicotine dependence, unspecified, uncomplicated
CPT/HCPCS: 99215